=== PATIENT | female | born 1995 | race Caucasian/White ===

== ENCOUNTER 2019-06-20 21:06 | Emergency (ER) | payer OTHER ==
[~2019-06-20] VITALS: Ht 167.6 cm; Wt 77.3 kg
[2019-06-20] MEDS ORDERED: SERT50TA29 PO (21:12)
[2019-06-20] MEDS ORDERED: GNP28TAB2 PO (21:12)
[2019-06-20 21:49] LABS: BASO % 0.5 % (0.0-1.0); EOS # 0.2 10^3/uL (0.0-0.5); EOS % 2.2 % (0.0-3.0); HEMOGLOBIN 12.3 g/dl (12.0-15.5); LYMPH # 2.1 10^3/uL (1.5-5.0); LYMPH % 26.8 % (24.0-44.0); MEAN CORPUSCULAR HEMOGLOBIN 33.2 pg (27.0-33.0); MEAN CORPUSCULAR HGB CONC 34.2 g/dl (32.0-36.5); MEAN CORPUSCULAR VOLUME 97.3 fl (80.0-96.0); MONO # 0.4 10^3/uL (0.0-0.8); MONO % 5.7 % (0.0-5.0); NEUTROPHILS % 64.5 % (36.0-66.0); PLATELET COUNT, AUTOMATED 196 10^3/uL (150-450); WHITE BLOOD COUNT 7.8 10^3/uL (4.0-10.0)
[2019-06-20 22:13] LABS: HCG, SERUM QUALITATIVE POSITIVE (NEGATIVE)
[2019-06-20] MEDS ORDERED: METOCLOPRAMIDE INJ 10MG/2ML VIAL (J2765) IV ONE (22:15)
[2019-06-20] MEDS ORDERED: MORPHINE 2 MG/ML 1ML VIAL (J2270) IV ONE (22:15)
[2019-06-20] MEDS ORDERED: NS 1,000 ML IV ONE (22:15)
[2019-06-20 23:00] LABS: ALBUMIN 3.6 GM/DL (3.2-5.2); ALT/SGPT 25 U/L (12-78); BILIRUBIN,DIRECT 0.1 MG/DL (0.0-0.2); BILIRUBIN,TOTAL 0.5 MG/DL (0.2-1.0); BLOOD UREA NITROGEN 14 MG/DL (7-18); CALCIUM LEVEL 9.1 MG/DL (8.5-10.1); CARBON DIOXIDE LEVEL 26 MEQ/L (21-32); CHLORIDE LEVEL 108 MEQ/L (98-107); CREATININE FOR GFR 0.78 MG/DL (0.55-1.30); GLOMERULAR FILTRATION RATE > 60.0 (>60); GLUCOSE, FASTING 87 MG/DL (70-100); HCG, SERUM QUANTITATIVE 16754 MIU/ML; LIPASE 203 U/L (73-393); POTASSIUM SERUM 3.9 MEQ/L (3.5-5.1); SODIUM LEVEL 142 MEQ/L (136-145); TOTAL PROTEIN 6.4 GM/DL (6.4-8.2)
--- NOTE | 2019-06-20 23:27 | REPVR ---
PROCEDURE INFORMATION: Exam: US Retroperitoneal Complete, Kidneys and Bladder. Exam date and time: 06/20/2019 10:32 PM Clinical history: 24 years old, female; Abdominal pain; Flank; Left; ; Prior Surgery; Surgery Date: 6+ months; Surgery Type: patient had RT nephrectomy as child; Additional Info: left flank pain/pelvic pain; 6 weeks /hx of pyelo TECHNIQUE: Imaging protocol: Real-time ultrasound of the retroperitoneum with image documentation. Complete exam focused on the kidneys and bladder. COMPARISON: No relevant prior studies available. FINDINGS: Limitations: Somewhat limited evaluation because of body habitus. Right kidney: Right kidney is not seen. Left kidney: Left kidney measures 14.0 cm in length. No left hydronephrosis. No masses. Bladder: Bladder is unremarkable. Bladder is partially decompressed. IMPRESSION: 1. Solitary left kidney with compensatory hypertrophy. 2. No left hydronephrosis. 3. Status post right nephrectomy. Electronically signed by: Mike Smallwood On 06/20/2019 23:27:08 PM
--- NOTE | 2019-06-20 23:29 | REPVR ---
PROCEDURE INFORMATION: Exam: US First Trimester, Transabdominal Exam date and time: 06/20/2019 10:32 PM Clinical history: 24 years old, female; complicated by abdominal or pelvic pain; Lower; First trimester; Gestational age or LMP: 5w 6d; ; Additional Info: left flank pain/pelvic pain; 6 weeks /hx of pyelo TECHNIQUE: Imaging protocol: Real-time transabdominal obstetrical ultrasound of the maternal pelvis and a first trimester , less than 14 weeks 0 days, with image documentation. COMPARISON: US Abdomen 06/20/2019 10:23 PM FINDINGS: GESTATION: Gestation: Single live intrauterine gestation. Heart rate: heart rate measures 113 beats per minute. Placenta: Unremarkable. No subchorionic bleed. Amniotic fluid: Amniotic and chorionic fluid are normal for gestational age. BIOMETRY: Estimated gestational age: Estimated gestational age 5 weeks 6 days by crown-rump length. [place]-Rump length: [place]-rump length measures 2.5 mm. MATERNAL: Uterus: Uterus measures 5.5 x 8.8 x 6.4 cm. No masses. Cervix: Unremarkable. Right adnexa: Right ovary is obscured by overlying bowel gas. Left adnexa: Left ovary is obscured by overlying bowel gas. Intraperitoneal: No free fluid. IMPRESSION: 1. Single live intrauterine gestation. 2. Estimated gestational age 5 weeks 6 days. 3. Recommend followup full anatomical survey at 19-20 weeks gestational age. Electronically signed by: Mike Smallwood On 06/20/2019 23:29:13 PM
[2019-06-20] MEDS ORDERED: REGL10TA6 PO (23:48)
[2019-06-20] MEDS ORDERED: KEFL500C17 PO (23:48)
[2019-06-21] MEDS ORDERED: CEPHALEXIN 500 MG CAP PO ONE
[2019-06-21 00:08] VITALS: BP 100/58
--- NOTE | 2019-06-21 21:25 | ECGEPIP ---
[facility] - ED Test Date: 2019-06-20 Pat Name: PAPITO DE PAZ Department: Room: - Gender: Female [employer] Person: KENNEDI : 1995 Requested By: PREET VYAS Order Number: [id number] Reading MD: Kate Arnold Measurements Intervals [place] Rate: 69 P: 62 CA: 140 QRS: 87 QRSD: 84 T: 64 QT: 352 QTc: 380 Interpretive Statements SINUS RHYTHM WITH SINUS ARRHYTHMIA NO PRIOR Electronically Signed on 06-21-2019 21:24:53 EDT by Kate Arnold
== END 2019-06-21 00:14 | disposition home or self-care (01) ==
LOC: M ED 21:06
DX: O23.41 Unspecified infection of urinary tract in pregnancy, first trimester (principal); Z3A.01 Less than 8 weeks gestation of pregnancy; Z88.8 Allergy status to other drugs, medicaments and biological substances; Z88.5 Allergy status to narcotic agent; Z79.899 Other long term (current) drug therapy
CPT/HCPCS: 36415; 76775; 76801; 80053; 81001; 82248; 83690; 84702; 84703; 85025; 93005; 96361; 96374; 96375; 99284; J2270; J2765

== ENCOUNTER 2020-01-06 16:38 | Outpatient (CLI) | payer OTHER ==
[~2020-01-06] VITALS: Ht 167.6 cm; Wt 99.5 kg
[~2020-01-06 16:38] MED LIST: GNP28TAB2 PO; KEFL500C17 PO; REGL10TA6 PO; SERT50TA29 PO
[2020-01-06] MEDS ORDERED: MAPA500T2 PO (16:50)
[2020-01-06] MEDS ORDERED: sertraline PO (16:50)
[2020-01-06 17:06] VITALS: BP 134/60
--- NOTE | 2020-01-07 00:20 | HPE ---
DATE OF ADMISSION: 01/06/2020 A 24-year-old 2, para 1, last menstrual period (LMP) 05/06/2019, estimated date of confinement (EDC) 02/10/2020 at 35 weeks of gestation with a history of query contractions. No vaginal bleeding and no vaginal loss. Risk factors: She has had a previous section, a right nephrectomy, cardiac murmur, migraines, asthma, depression, recurrent urinary tract infection (UTIs) and anemia. Past History: In 2014, a section, 8 pounds and 2 ounces, under general was a stat section for nonreassuring heart tones and abruption. Labs are O positive, HIV negative, hepatitis negative, RPR negative, rubella immune. Varicella immune. Urine negative. Gonorrhea and chlamydia are negative. One-hour glucose was 123. Blood pressure 134/60, respirations 18, pulse 67, temperature is 98.2. Urine is 1.015, pH is 5, plus for blood and plus for protein. EXAMINATION: No acute distress. Symphysis fundus height is 35, vertex presenting, soft uterus. Four quadrant bowel sounds are noted. Category one strip lemon activity with moderate variability and accelerations were noted, baseline was noted normal. Cervix was closed, posterior, thick and high. No vaginal bleeding or discharge. GBS culture was done. The patient was counseled, discharged undelivered. Follow up her routine appointment. Urine for culture and sensitivity (C and S) was done, and we anticipate a result in 48 hours. The patient is to increase her fluids and discharged undelivered.
== END 2020-01-06 17:41 | disposition home or self-care (01) ==
LOC: M LDO 16:38
PROVIDERS: ATTEND Obstetrics & Gynecology
DX: O62.0 Primary inadequate contractions (principal); Z3A.35 35 weeks gestation of pregnancy
CPT/HCPCS: 59025; 87070; 87086; G0378; G0463

== ENCOUNTER 2020-02-01 03:01 | Inpatient (IN) | payer OTHER ==
[~2020-02-01] VITALS: Ht 167.6 cm; Wt 102.6 kg
[2020-02-01] VITALS (20 sets, daily range): BP systolic 101–136; BP diastolic 56–84
[~2020-02-01 03:01] MED LIST changes: +MAPA500T2 PO; +sertraline PO
[2020-02-01] MEDS ORDERED: PEPC1TAB5 PO (03:24)
[2020-02-01] MEDS ORDERED: LACTATED RINGER'S 1000 ML IV STA (03:49)
[2020-02-01] MEDS ORDERED: LR 1,000 ML IV SCH (03:49)
[2020-02-01] MEDS ORDERED: SIMETHICONE 80 MG CHEW TAB PO PRN (04:00)
[2020-02-01] MEDS ORDERED: MOM 30ML SUSPENSION UDC PO PRN ×2 (04:00→19:00)
[2020-02-01] MEDS ORDERED: CALCIUM CARBONATE 500 MG CHEW U/D PO PRN (04:00)
[2020-02-01] MEDS ORDERED: ACETAMINOPHEN 500 MG TAB PO PRN ×2 (04:00→19:00)
[2020-02-01] MEDS ORDERED: BUTORPHANOL 2 MG/ML INJ (J0595) IV PRN (04:00)
[2020-02-01] MEDS ORDERED: PROMETHAZINE INJ 25 MG/ML VIAL (J2550) IV PRN (04:00)
[2020-02-01] MEDS ORDERED: diphenhydrAMINE 25MG CAP PO PRN (04:00)
--- NOTE | 2020-02-01 04:11 | HPEPDOC ---
Obstetrical History & Physical General Date of Admission Feb 01, 2020 at 03:53 History of Present Illness Patient is a 25yo at 38.5wks by LMP c/w 9wk US. Ctx since 0100. No LOF, VB, headache, or visual changes. Good movement. 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 Past Medical History Medical History asthma, migraines Surgical History: Appendectomy, section, Tonsilectomy, Other (Rt nephrectomy) Family History Significant Family History: No pertinent family hx Social History Marital Status: Family situation: Spouse/partner home Psychosocial History: Depression * Smoker: non-smoker Alcohol: Denies Drugs: denies Abuse Violence Screening Have you been hit/kicked/slapp: No Have you been sexually assault: No Imunizations Tdap status: current Influenza Status: current Allergies Coded Allergies: acetaminophen (Verified Allergy, Intermediate, hives, 06/20/19) hydrocodone (Verified Allergy, Intermediate, hives, 06/20/19) prochlorperazine (Verified Allergy, Intermediate, panic attack, 06/20/19) Medications Scheduled Famotidine (Pepcid) 20 Mg Tablet, 20 MG PO DAILY Pnv No.95/Ferrous Fum/Folic AC ( Vitamins Tablet) 1 Each Tablet, 1 TAB PO DAILY [sertraline] , 75 MG PO DAILY Miscellaneous Medications Acetaminophen (Mapap) 500 Mg Tablet, 1,000 MG PO Physical Examination Physical Examination GENERAL: Alert and oriented times three. BREAST: . ABDOMEN: Gravid and non-tender to touch. FETUS: Is vertex (VTX) by sterile vaginal examination (SVE), fetus is 4000gm by Jose Juan. HEART RATE: Regular rate and rhythm. LUNGS: Clear to auscultation (CTA). EXTREMITIES: No edema. Vital Signs/I&O Vital Signs Date Time Temp Pulse Resp B/P (MAP) Pulse Ox O2 Delivery O2 Flow Rate FiO2 02/01/20 03:16 98.4 129 18 119/72 (88) Laboratory Data Urine Culture: Escherichia (E.) Coli Pertinent Laboratoy Data HIV: Negative Hepatitis B: Negative Rapid Plasma Reagin: Nonreactive Rubella: Immune Varicella: Immune Chlamydia/Gonorrhea: Negative Group B Streptococcus: Negative Cystic Fibrosis: Negative Glucose Tolerance Test: 125 Anatomy Ultrasound Ultrasound Date: Sep 23, 2019 Placenta Location: Anterior Normal Anatomy: Yes Placenta Previa: No Estimated Weight (grams): 294 Steroid Therapy Steroid Therapy: No Vaginal Examination Dilation: 4 cm Effacement: 50% Station: -3 Cervical Consistency: Medium Cervical Position: Posterior Presentation: Cephalic presentation Assessment Heart Rate (FHR): 140 Variability: Moderate Accelerations: Positive Decelerations: None Tocometer Contractions: Yes Frequency: every 1-5 min. Multi-drug resistant Organism: No history of MDRO Assessment/Plan Assessment Patient is a 25yo at 38.5wks by LMP c/w 9wk US. Admit for labor and expect delivery by . Pain management per patient preference, which was discussed with her. I discussed risks of with patient of failure with section, distress, bleeding, infection, , vaginal or perineal or neighboring organ tear. Currently, fetus is reassuring. GBS is negative, no need for antibiotics. Plan Admit and orient. 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 Diet: NPO. Group B Streptococcus (GBS) negative. Labs and intravenous (IV) per unit protocol. Counseled on TOLAC. Lactated Ringers (LR): Bolus 500 mL, then at 125 mL/hr. Anticipate normal spontaneous delivery (). C-S as appropriate. Pain mgt per patient desire. Patient was consented for a TOLAC. She understands both options of TOLAC vs cesarian delivery. delivery includes risks of infection, bleeding needing a transfusion (with blood reaction or transmission of disease), damage to other organs including baby, need for future deliveries, longer recovery and hospitalization, future scarring, more recovery pain, possible limit to childbearing, pelvic and/or uterine disorders or pain permanently. Benefits include faster delivery, or . TOLAC includes risks of bleeding needing a transfusion (with blood reaction or transmission of disease), uterine or infection, perineal or vaginal lacerations, assisted delivery, distress or injury, emergency section, uterine rupture, of fetus and/or mother. Benefits include avoiding abdominal surgery and faster recovery. All questions were answered by the patient. She desires TOLAC. Arlene Mcnamara MD Feb 01, 2020 04:06
[2020-02-01 04:32] LABS: BASO % 0.3 % (0.0-1.0); EOS # 0.1 10^3/uL (0.0-0.5); EOS % 0.6 % (0.0-3.0); HEMATOCRIT 35.1 % (36.0-47.0); HEMOGLOBIN 11.3 g/dl (12.0-15.5); LYMPH # 1.7 10^3/uL (1.5-5.0); LYMPH % 12.6 % (24.0-44.0); MEAN CORPUSCULAR HEMOGLOBIN 32.8 pg (27.0-33.0); MEAN CORPUSCULAR HGB CONC 32.2 g/dl (32.0-36.5); MONO # 0.9 10^3/uL (0.0-0.8); MONO % 6.5 % (0.0-5.0); NEUTROPHILS # 10.3 10^3/uL (1.5-8.5); NEUTROPHILS % 79.3 % (36.0-66.0); PLATELET COUNT, AUTOMATED 221 10^3/uL (150-450); RED BLOOD COUNT 3.44 10^6/uL (4.00-5.40); WHITE BLOOD COUNT 13.1 10^3/uL (4.0-10.0)
--- NOTE | 2020-02-01 10:12 | REP ---
Clinical: Vaginal discharge. Possible ruptured membrane. Comparison: None . Findings: Examination demonstrates a single live intrauterine in cephalic presentation. motion is identified by technologist. Placenta is noted anterior and grade I without evidence for placenta previa or abruption. Amniotic fluid volume is low normal. Cervix cannot be measured due to advanced age. Nuchal cord cannot be excluded. Gestational age by LMP 38 weeks 5 days with IRVIN 02/10/2020 . Gestational age by first US 38 weeks 1 day with IRVIN 02/14/2020 . FHR equals 141 beats per minute. Biophysical profile score: 4/8 (breathing -0; tone -0; movement -2; AFV -2) Amniotic fluid index: 8.3 cm (7.2 - 23.0) Umbilical cord SD ratio: 1.83 (1.60 - 2.60) Impression: Advanced gestation in cephalic presentation. Biophysical profile score: 4/8 Amniotic fluid volume is lower limits of normal. Nuchal cord cannot be excluded. Electronically Signed by Sukh Chaidez MD 02/01/2020 10:05 A
--- NOTE | 2020-02-01 11:46 | IPN ---
DATE: 02/01/2020 This lady is a 25-year-old, 2, para 1. She is at 38 and 6 weeks of gestation today. Was admitted with contractions. Her past history is that she had a section for nonreassuring heart tones complicated by a hemorrhage. Her other surgical history she has had an appendectomy, section, a right nephrectomy. She was reviewed overnight and she was having contractions about 11 minutes apart. She had a category 1 strip with the occasional time where she had a category II strip but with hydration appeared to be back to category 1 strip. The contractions were very spaced apart. Initial examination by previous provider said she was 4 cm, 50% effaced and minus 3. Review this morning she is maybe 3 cm, posterior and minus 3, is vertex presenting and generous 50% effacement. Presently has a category 1 strip and was not really in active labor. Although, she expressed the wish to have a trial of labor after (TOLAC). Therefore, prior to assessment of discharge a BPP was performed and the BPP was 4/8. Baby was at 38 and 6 weeks of gestation, got zero for breathing, zero for tone, 2 for movement, and 2 for the amniotic fluid which was at 8.[address] ratio was normal at 1.83, and question of nuchal cord could not be excluded. With a biophysical of 4/8, we felt that this lady should not go home because there may be an issue with intrauterine environment and the fact she is a TOLAC and wished to optimize her for vaginal delivery. We elected to go ahead and do a contraction stress test in order establish whether or not the placenta will tolerate labor as will the fetus, and if so we would continue on with Pitocin expressing to the patient that because of intervention she is at higher risk for rupture of the uterus. She expressed understanding of the risks and benefits. We are waiting for her to come before trying the contraction stress test. She is nothing by mouth. Blood pressure is 113/77, respirations 16, pulse 91, temperature is 98.2. Presently, a category 1 strip and we will define the progress after the contraction stress test. We spent 30 minutes with review of the ultrasound and plan of care. Safe to proceed at the present time.
[2020-02-01] MEDS ORDERED: OXYTOCIN DRIP 30 UNITS in IV 1 EA IV SCH (12:00)
--- NOTE | 2020-02-01 12:04 | IPN ---
DATE: 02/01/2020 at 10:53 a.m. After discussing with this patient our plan of care she had some of auxiliary questions regarding Pitocin. She was told by a previous provider that under no circumstances would she use Pitocin on the patient because of the increased risk of rupture of the uterus. After discussing the physiology of contractions in which Pitocin is naturally produced by her own body and we are doing a controlled trial with a contraction stress test to see if this placenta and baby will tolerate labor is a different issue than using Pitocin for induction of labor. We did reiterate that there still an increase risk of rupture the uterus because of our intervention. However, without establishing whether in fact she needs to have a section because of a positive PET HANDLER where it would indicate uteroplacental insufficiency, then we can continue safely monitoring her for labor. The patient expressed understanding of the issue and we still await her 's coming to participate in the labor process.
[2020-02-01 18:41] LABS: CORD GAS ABE A -10.3; CORD GAS HCO3 A 19.8 MEQ/L; CORD GAS O2 SAT A 48.2 %; CORD GAS PCO2 A 61.2 mmHg; CORD GAS PH A 7.128 UNITS; CORD GAS PO2 A 26.6 mmHg; CORD GAS SBC A 15.4 MEQ/L; CORD GAS TCO2 A 21.7 MEQ/L
[2020-02-01 18:42] LABS: CORD GAS ABE V -10.4; CORD GAS HCO3 V 15.9 MEQ/L; CORD GAS O2 SAT V 79.7 %; CORD GAS PH V 7.251 UNITS; CORD GAS PO2 V 37.7 mmHg
[2020-02-01] MEDS ORDERED: DIBUCAINE 1% OINTMENT 30GM TOP PRN (19:00)
[2020-02-01] MEDS ORDERED: IBUPROFEN 600 MG TAB PO PRN (19:00)
[2020-02-01] MEDS ORDERED: RHOGAM 300 MCG (1500 IU) INJ (J2790) IM SCH (19:00)
[2020-02-01] MEDS ORDERED: OXYTOCIN INJ 10 UNITS/ML VIAL (J2590) IV ONE (19:00)
[2020-02-01] MEDS ORDERED: ANUSOL HC CREAM 30GM TOP PRN (19:00)
[2020-02-01] MEDS ORDERED: OXYTOCIN DRIP 30 UNITS in IV 1 EA IV ONE (19:00)
[2020-02-01] MEDS ORDERED: MEASLES,MUMPS,RUBELLA VACCINE INJ (MMR-II) (90707) SC SCH (19:00)
[2020-02-01] MEDS ORDERED: LIDOCAINE 1% MDV 20ML VIAL INFIL ONE (19:00)
[2020-02-01] MEDS ORDERED: ACETAMINOPHEN TAB 650MG DOSE (2X325MG) PO PRN (19:00)
[2020-02-01] MEDS ORDERED: DOCUSATE SODIUM 100 MG CAP PO PRN (19:00)
[2020-02-01] MEDS ORDERED: METHYLERGONOVINE MALEATE 0.2 MG TAB PO PRN (19:00)
[2020-02-01] MEDS ORDERED: LIDOCAINE 1% MDV 20ML VIAL As Ordered ONE (19:15)
[2020-02-01] MEDS ORDERED: OXYTOCIN INJ 10 UNITS/ML VIAL (J2590) As Ordered ONE (19:15)
[2020-02-01] MEDS: IBUPROFEN 800 MG TAB PO PRN (21:01)
[2020-02-02 05:44] VITALS: BP 116/68
[2020-02-02 08:00] LABS: HEMATOCRIT 33.3 % (36.0-47.0); HEMOGLOBIN 10.7 g/dl (12.0-15.5); MEAN CORPUSCULAR HGB CONC 32.1 g/dl (32.0-36.5); MEAN CORPUSCULAR VOLUME 102.8 fl (80.0-96.0); PLATELET COUNT, AUTOMATED 191 10^3/uL (150-450); RED BLOOD COUNT 3.24 10^6/uL (4.00-5.40); WHITE BLOOD COUNT 14.7 10^3/uL (4.0-10.0)
--- NOTE | 2020-02-02 08:02 | IPN ---
DATE: 02/02/2020 This lady is a 25-year-old 2, now para 2, admitted with spontaneous labor at 38+ weeks of gestation desiring a trial of labor after (TOLAC). She delivered a live female 7 pounds 7 ounces, 3370 grams, of 8 and 9, at one and five minutes respectively. Cord times one around the neck and cord times one around the body tight. Arterial pH 7.12, base excess -10.3, venous pH 7.25, base excess -10.4. She has some local anesthetic for a left labial varicosity repair. 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 She was then admitted with prodromal labor. She was delivered successfully, a TOLAC. On her first day, blood pressure is 116/68, respirations 18, pulse 84, temperature 98.0. Her admitting hemoglobin was 11.3, hematocrit 35.1 and platelets were 221. We discussed phlebitis, cystitis, mastitis, endometritis and cellulitis, diet, exercise pain management, perineal breast and wound care. On examination, she is normocephalic, atraumatic. Neck: Full range of motion. Pupils equally reactive to light. Distal pulses symmetric. No evidence of deep venous thrombosis (DVT), pulmonary embolus (PE) or superficial phlebitis. Chest is clear bilaterally bases. No wheezes or rhonchi. No costovertebral angle (CVA) tenderness. Abdomen: Soft. Uterus 2 below. Lochia is moderate. Four-quadrant bowel sounds are noted. Perineum is healing. She has no rashes, lesions or pruritus. No arthralgia or myalgia complaint joint pain. No complaint cough, wheeze, shortness breath or dyspnea on exertion. Breast-feeding is going well. She is planned on discharge for tomorrow. 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 The patient is anxious for discharge tomorrow.
[2020-02-02] MEDS: PRENATAL VITAMINS CHEWABLE TABLET PO SCH (08:33)
[2020-02-02] MEDS: SERTRALINE HCL 25 MG TABLET PO SCH (08:33)
[2020-02-02] MEDS: IBUPROFEN 800 MG TAB PO PRN ×2 (08:33→20:38)
[2020-02-02 18:00] VITALS: BP 118/75
[2020-02-03 05:35] VITALS: BP 120/74
[2020-02-03] MEDS ORDERED: DIBU10OI TOP (07:01)
[2020-02-03] MEDS ORDERED: DOCU100C16 PO (07:01)
[2020-02-03] MEDS ORDERED: IBUP80TA PO (07:01)
[2020-02-03] MEDS ORDERED: SERT25TA21 PO (07:01)
[2020-02-03] MEDS: SERTRALINE HCL 25 MG TABLET PO SCH (08:38)
[2020-02-03] MEDS: PRENATAL VITAMINS CHEWABLE TABLET PO SCH (08:40)
[2020-02-03] MEDS: IBUPROFEN 800 MG TAB PO PRN (08:40)
--- NOTE | 2020-02-05 16:41 | DN ---
DATE OF DELIVERY: 02/01/2020 DELIVERY NOTE: This lady is a 25-year-old, 2, para 1, was admitted in spontaneous prodromal labor. She was evaluated and was having contractions maybe 11 minutes apart. She did have a category 1 strip but there was occasional areas where she had minimal variability and a category 2 strip. Her cervix was posterior, maybe 2 cm, -3 station. Because she had a previous section for nonreassuring heart tones she elected to have a trial of labor after (TOLAC) . However, we elected to do a biophysical profile prior to either continuing on or letting her go home and the biophysical profile was 4/8 with no breathing and no tone. Therefore, we did a contraction stress test which was negative and proceeded on with Pitocin maximum of 4 milliunits in total. She did have a spontaneous rupture of membranes and she rapidly progressed to full dilatation, delivered over an intact perineum a live female , 7 pounds 7 ounces (3370 grams) score 8 and 9 at and five minutes, respectively. Cord was around the neck once tight and was around the body times one tight. Arterial pH 7.12, base excess -10.3, venous pH 7.25, base excess -10.4. Placenta delivered spontaneously thereafter. Three-vessel cord membranes and tissues intact. The left lateral vaginal varicosity was oversewn in the usual fashion with #2-0 [id number]. The uterus contracted well down under Pitocin. The anterior, posterior, and lateral graham were intact. Sphincter was tight. The patient and baby tolerating procedure well.
--- NOTE | 2020-02-06 14:19 | DSES ---
DATE OF ADMISSION: 02/01/2020 DATE OF DISCHARGE: 02/03/2020 This lady is a 25-year-old, 2, now para 2 who came in with spontaneous labor at 38+ weeks of gestation. She was a trial of labor after (TOLAC) candidate. She had a spontaneous vaginal delivery of a female, 7 pounds 7 ounces, 3370 grams, Apgars of 8 and 9 at one and five minutes respectfully. Cord was around the neck x1 and the body x1. Arterial pH 7.12, base excess -10.3; venous pH 7.25, base excess -10.4. She has some local anesthetic for a left labial varicosity repair. She initially had a negative contraction stress test followed by a BPP of 4 out of 8, which initiated augmentation of labor. On her second day, we discussed phlebitis, cystitis, mastitis, endometritis and cellulitis; diet, exercise and pain management; perineal, breast and wound care. Admitting hemoglobin 11.3, hematocrit 35.1 and platelets were 221. Discharge hemoglobin 10.7, hematocrit 33.3 and platelets were 199. Vital signs on discharge, blood pressure was 120/74, respirations 17, pulse 73 and temperature 98.1. The rest of the examination unremarkable. Normocephalic, atraumatic. Neck full range of motion. Pupils equal and react to light. Distal pulses symmetric. No evidence of deep vein thrombosis (DVT), pulmonary embolism (PE) or superficial phlebitis. Chest is clear bilaterally at bases. No wheezes or rhonchi. No CVA tenderness. Abdomen soft, uterus two below. Lochia is moderate. Four quadrant bowel sounds are noted. Perineum is healing. No rashes, lesions or pruritus. No arthralgia or myalgia. No complaint of joint pain. No complaint of cough, wheeze, shortness of breath or dyspnea on exertion. No nausea, vomiting, diarrhea or constipation. Presently, she is voiding well, passing gas. Breast feeding is going well. 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 She will have a 6-week checkup at [facility]. Discharged delivered and stable.
== END 2020-02-03 12:30 | disposition home or self-care (01) | DRG 807 ==
LOC: M LDO 03:01 → M LDI 03:53 → M OBS 21:35
PROVIDERS: ADMIT Obstetrics & Gynecology; ATTEND Obstetrics & Gynecology
PROC: 10E0XZZ Delivery of Products of Conception, External Approach (ICD-10-PCS; principal; 2020-02-01)
PROC: 0HQ9XZZ Repair Perineum Skin, External Approach (ICD-10-PCS; 2020-02-01)
DX: O34.211 Maternal care for low transverse scar from previous cesarean delivery (principal); Z37.0 Single live birth; Z3A.38 38 weeks gestation of pregnancy; O69.1XX0 Labor and delivery complicated by cord around neck, with compression, not applicable or unspecified; O70.0 First degree perineal laceration during delivery

== ENCOUNTER → 2020-04-06 | Outpatient (REF) | payer OTHER ==
[~2020-04-06] MED LIST changes: +CYCL5TAB PO; +DIBU10OI TOP; +DOCU100C16 PO; +IBUP80TA PO; +PEPC1TAB5 PO; +SERT25TA21 PO
== END ==
LOC: M LAB REF 16:16
PROVIDERS: ATTEND Physician Assistant
DX: J02.9 Acute pharyngitis, unspecified (principal)

== ENCOUNTER 2020-06-22 19:18 | Emergency (ER) | payer OTHER ==
[~2020-06-22] VITALS: Ht 167.6 cm; Wt 92.5 kg
[~2020-06-22 19:18] MED LIST changes: -CYCL5TAB PO
[2020-06-22 19:19] VITALS: BP 120/78
[2020-06-22] MEDS ORDERED: IBUPROFEN 800 MG TAB PO ONE (20:00)
--- NOTE | 2020-06-22 20:37 | REPVR ---
PROCEDURE INFORMATION: Exam: XR Right Shoulder Exam date and time: 06/22/2020 8:12 PM Age: 25 years old Clinical indication: Pain; Shoulder; Bilateral; Additional info: [place] TECHNIQUE: Imaging protocol: XR Right shoulder. Views: 2 or more views. COMPARISON: No relevant prior studies available. FINDINGS: Bones/joints: Normal. Soft tissues: Normal. IMPRESSION: No acute findings. PROCEDURE INFORMATION: Exam: XR Left Shoulder Exam date and time: 06/22/2020 8:12 PM Age: 25 years old Clinical indication: Pain; Shoulder; Bilateral; Additional info: [place] TECHNIQUE: Imaging protocol: XR Left shoulder. Views: 2 or more views. COMPARISON: No relevant prior studies available. FINDINGS: Bones/joints: Normal. Soft tissues: Normal. IMPRESSION: No acute findings. Electronically signed by: Roly Grimaldo On 06/22/2020 20:37:40 PM
--- NOTE | 2020-06-22 20:41 | REPVR ---
PROCEDURE INFORMATION: Exam: XR Right Elbow Exam date and time: 06/22/2020 8:12 PM Age: 25 years old Clinical indication: Pain; Elbow; Right; Additional info: [place] TECHNIQUE: Imaging protocol: XR Right elbow. Views: 3 or more views. COMPARISON: No relevant prior studies available. FINDINGS: Bones/joints: Normal. Soft tissues: Amorphous density adjacent to the medial epicondyle may be the sequelae of medial epicondylitis. IMPRESSION: Amorphous density adjacent to the medial epicondyle may be the sequelae of medial epicondylitis. Electronically signed by: Roly Grimaldo On 06/22/2020 20:41:31 PM
--- NOTE | 2020-06-22 20:44 | REPVR ---
PROCEDURE INFORMATION: Exam: XR Right Hip with Pelvis when Performed Exam date and time: 06/22/2020 8:12 PM Age: 25 years old Clinical indication: Hip pain; Right hip; Additional info: [place]ell TECHNIQUE: Imaging protocol: XR Right hip with pelvis when performed. Views: 2 or 3 views. COMPARISON: No relevant prior studies available. FINDINGS: Bones/joints: Unremarkable. No acute fracture. Soft tissues: Unremarkable. IMPRESSION: No acute findings. Electronically signed by: Roly Grimaldo On 06/22/2020 20:44:16 PM
[2020-06-22] MEDS ORDERED: OXYCODONE/APAP 5MG/325MG(BULK FOR ED) 1 TABLET PO ONE (21:00)
[2020-06-22] MEDS ORDERED: PERCOCET 5MG/325MG TAB PO ONE (21:00)
[2020-06-22] MEDS ORDERED: CYCL5TAB PO (21:03)
--- NOTE | 2020-06-23 15:22 | ED PDOC ---
Post-Departure Follow-Up ft [facility] faxed formal report of right elbow film for fu Bebeto Hernandez MD Jun 23, 2020 15:22
== END 2020-06-22 21:39 | disposition home or self-care (01) ==
LOC: M ED 19:18
DX: S43.402A Unspecified sprain of left shoulder joint, initial encounter (principal); S73.101A Unspecified sprain of right hip, initial encounter; M25.521 Pain in right elbow; W10.8XXA Fall (on) (from) other stairs and steps, initial encounter; Y92.009 Unspecified place in unspecified non-institutional (private) residence as the place of occurrence of the external cause; Z88.5 Allergy status to narcotic agent; Z88.8 Allergy status to other drugs, medicaments and biological substances

== ENCOUNTER → 2020-07-30 | Outpatient (CLI) | payer SELFPAY ==
[~2020-07-30] MED LIST changes: +CYCL5TAB PO
== END ==
LOC: M LABSMTC 12:49
PROVIDERS: ATTEND Pediatrics
DX: Z20.828 Contact with and (suspected) exposure to other viral communicable diseases (principal)

== ENCOUNTER 2020-12-08 23:38 | Emergency (ER) | payer OTHER, SELFPAY ==
[~2020-12-08] VITALS: Ht 167.6 cm; Wt 90.0 kg
[~2020-12-08 23:38] MED LIST changes: -DIBU10OI TOP; +DIBU28OI2 TOP
[2020-12-08] MEDS ORDERED: SERT-141 PO (23:46)
[2020-12-09 00:51] LABS: HEMATOCRIT 40.7 % (36.0-47.0); HEMOGLOBIN 13.1 g/dl (12.0-15.5); MEAN CORPUSCULAR HEMOGLOBIN 30.8 pg (27.0-33.0); MEAN CORPUSCULAR HGB CONC 32.2 g/dl (32.0-36.5); MEAN CORPUSCULAR VOLUME 95.5 fl (80.0-96.0); PLATELET COUNT, AUTOMATED 330 10^3/uL (150-450); RED BLOOD COUNT 4.26 10^6/uL (4.00-5.40); WHITE BLOOD COUNT 8.5 10^3/uL (4.0-10.0)
[2020-12-09] MEDS ORDERED: NS 1,000 ML IV ONE (01:10)
[2020-12-09] MEDS ORDERED: ACETAMINOPHEN *IV* 1,000 MG in IV 1 EA IV ONE (01:10)
[2020-12-09] MEDS ORDERED: ONDANSETRON 4MG/2ML VIAL IV ONE (01:10)
[2020-12-09 01:15] LABS: APPEARANCE, URINE HAZY (CLEAR); BACTERIA, URINE AUTO NEGATIVE (NEGATIVE); BILIRUBIN, URINE AUTO NEGATIVE (NEGATIVE); BLOOD, URINE BLOOD 1+ (NEGATIVE); COLOR, URINE YELLOW (YELLOW); GLUCOSE, URINE (UA) AUTO NEGATIVE (NEGATIVE); KETONE, URINE AUTO NEGATIVE (NEGATIVE); LEUKOCYTE ESTERASE, URINE AUTO NEGATIVE (NEGATIVE); MUCUS, URINE SMALL (NEGATIVE); NITRITE, URINE AUTO NEGATIVE (NEGATIVE); PROTEIN, URINE AUTO 2+ mg/dL (NEGATIVE); RBC, URINE AUTO 2 /HPF (0-3); SPECIFIC GRAVITY URINE AUTO 1.015 (1.002-1.035); SQUAMOUS EPITHELIAL CELL UR AU 3 /HPF (0-6); WBC, URINE AUTO 1 /HPF (0-3)
[2020-12-09 01:32] LABS: BLOOD UREA NITROGEN 7 MG/DL (7-18); CARBON DIOXIDE LEVEL 26 MEQ/L (21-32); CHLORIDE LEVEL 109 MEQ/L (98-107); CREATININE FOR GFR 0.98 MG/DL (0.55-1.30); GLOMERULAR FILTRATION RATE > 60.0 (>60); GLUCOSE, FASTING 93 MG/DL (70-100); POTASSIUM SERUM 3.8 MEQ/L (3.5-5.1); SODIUM LEVEL 141 MEQ/L (136-145)
[2020-12-09 01:33] LABS: CALCIUM LEVEL 10.1 MG/DL (8.5-10.1); HCG, SERUM QUANTITATIVE 1862 MIU/ML
[2020-12-09] MEDS ORDERED: GI COCKTAIL 50ML BTL(HYOSCYAMINE/MAALOX/LIDOCAINE VISCOUS)(1:3:1) PO ONE (02:15)
[2020-12-09] MEDS ORDERED: FAMOTIDINE IV BAG 20 MG in IV 1 EA IV ONE (02:15)
--- NOTE | 2020-12-09 02:28 | REPVR ---
PROCEDURE INFORMATION: Exam: US Abdomen, Limited; Right Upper Quadrant Exam date and time: 12/09/2020 1:53 AM Age: 25 years old Clinical indication: Abdominal pain; Epigastric; Prior surgery; Surgery date: 6+ months; Surgery type: Right nephrectomy, as a child; Additional info: Ruq, epigastric pain TECHNIQUE: Imaging protocol: US abdomen. Real time ultrasound with image documentation. Limited exam focused on the right upper quadrant. COMPARISON: RENAL US 06/20/2019 10:23 PM FINDINGS: Liver: Unremarkable. Gallbladder: No gallstones. No gallbladder wall thickening or pericholecystic fluid. 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 Common bile duct: No stones. No ductal dilatation. Pancreas: Unremarkable as visualized. Right kidney: Absent. IMPRESSION: No acute sonographic findings. Electronically signed by: Donal Paz On 12/09/2020 02:29:23 AM
[2020-12-09 02:59] LABS: ALBUMIN 4.3 GM/DL (3.2-5.2); ALT/SGPT 44 U/L (12-78); BILIRUBIN,DIRECT 0.2 MG/DL (0.0-0.2); BILIRUBIN,TOTAL 0.7 MG/DL (0.2-1.0); LIPASE 135 U/L (73-393); TOTAL PROTEIN 7.4 GM/DL (6.4-8.2)
[2020-12-09 03:02] VITALS: BP 123/67
== END 2020-12-09 03:13 | disposition home or self-care (01) ==
LOC: M ED 23:38
DX: O99.619 Diseases of the digestive system complicating pregnancy, unspecified trimester (principal); K29.70 Gastritis, unspecified, without bleeding; Z88.6 Allergy status to analgesic agent; Z88.8 Allergy status to other drugs, medicaments and biological substances
CPT/HCPCS: 76705; 80047; 80048; 80076; 81001; 83690; 84702; 85027; 96365; 96375; 99284; J0131; J2405

== ENCOUNTER 2021-01-05 14:28 | Emergency (ER) | payer OTHER ==
[~2021-01-05] VITALS: Ht 167.6 cm; Wt 90.9 kg
[~2021-01-05 14:28] MED LIST changes: +SERT-141 PO
[2021-01-05] MEDS ORDERED: PRENMIS3 PO (14:41)
[2021-01-05] MEDS ORDERED: NS 1,000 ML IV ONE ×2 (15:00→16:30)
[2021-01-05 15:20] LABS: BASO % 0.5 % (0.0-1.0); EOS # 0.1 10^3/uL (0.0-0.5); EOS % 1.3 % (0.0-3.0); HEMATOCRIT 38.1 % (36.0-47.0); HEMOGLOBIN 12.5 g/dl (12.0-15.5); LYMPH # 1.5 10^3/uL (1.5-5.0); LYMPH % 19.8 % (24.0-44.0); MEAN CORPUSCULAR HEMOGLOBIN 31.3 pg (27.0-33.0); MEAN CORPUSCULAR HGB CONC 32.8 g/dl (32.0-36.5); MEAN CORPUSCULAR VOLUME 95.3 fl (80.0-96.0); MONO # 0.5 10^3/uL (0.0-0.8); MONO % 6.5 % (2.0-8.0); NEUTROPHILS # 5.3 10^3/uL (1.5-8.5); NEUTROPHILS % 71.4 % (36.0-66.0); PLATELET COUNT, AUTOMATED 262 10^3/uL (150-450); WHITE BLOOD COUNT 7.4 10^3/uL (4.0-10.0)
[2021-01-05 16:07] LABS: ALBUMIN 3.7 GM/DL (3.2-5.2); ALT/SGPT 17 U/L (12-78); BILIRUBIN,DIRECT 0.2 MG/DL (0.0-0.2); BILIRUBIN,TOTAL 0.8 MG/DL (0.2-1.0); BLOOD UREA NITROGEN 9 MG/DL (7-18); CALCIUM LEVEL 9.6 MG/DL (8.5-10.1); CARBON DIOXIDE LEVEL 25 MEQ/L (21-32); CHLORIDE LEVEL 108 MEQ/L (98-107); CREATININE FOR GFR 0.59 MG/DL (0.55-1.30); GLOMERULAR FILTRATION RATE > 60.0 (>60); GLUCOSE, FASTING 86 MG/DL (70-100); HCG, SERUM QUANTITATIVE 108302 MIU/ML; LIPASE 77 U/L (73-393); POTASSIUM SERUM 3.8 MEQ/L (3.5-5.1); SODIUM LEVEL 138 MEQ/L (136-145); TOTAL PROTEIN 6.7 GM/DL (6.4-8.2)
[2021-01-05] MEDS ORDERED: ACETAMINOPHEN 500 MG TAB PO ONE (16:30)
[2021-01-05] MEDS ORDERED: METOCLOPRAMIDE INJ 10MG/2ML VIAL (J2765 PER 1) IV ONE (16:55)
[2021-01-05 17:24] LABS: CK-MB VALUE MASS < 1.0 NG/ML (<3.6); CPK CREATINE PHOSPHOKINASE 46 U/L (26-192); MB/CK RELATIVE INDEX 2.17 (< OR =4); TROPONIN I < 0.02 NG/ML (< 0.10)
--- NOTE | 2021-01-05 17:39 | REP ---
INDICATION: N/V, 8 WEEKS. COMPARISON: No pertinent priors TECHNIQUE: Transvesical imaging FINDINGS: Within the uterus there is an anechoic structure with increased echoes surrounding it consistent with a decidual reaction. Within the gestational sac there is a tiny anechoic structure consistent with a yolk sac. Also seen in the gestational sac there is echogenic material consistent with a pole the mean crown-rump length measurement of which is consistent with a 9 week 3 day gestational age. Based on that the estimated date of delivery is 08/07/2021. Doppler interrogation of the heart shows a heart rate of 169 beats per minute. Evaluation of the adnexal spaces shows no abnormalities. An incidental urinary bladder diverticulum was suspected. IMPRESSION: Early OB ultrasound as described above. <Electronically signed by Jovan Scales > 01/05/21 [id number]
[2021-01-05 18:30] LABS: AMPHETAMINES LEVEL URINE NEGATIVE (NEGATIVE); BARBITURATES URINE NEGATIVE (NEGATIVE); BENZODIAZEPINES URINE NEGATIVE (NEGATIVE); CANNABINOIDS URINE NEGATIVE (NEGATIVE); COCAINE METABOLITE URINE NEGATIVE (NEGATIVE); METHADONE URINE NEGATIVE (NEGATIVE); OPIATES URINE NEGATIVE (NEGATIVE); PHENCYCLIDINE URINE NEGATIVE (NEGATIVE)
[2021-01-05] MEDS ORDERED: cefTRIAXone SOD 1 GM in D5W MINI-BAG PLUS 50 ML IV ONE (19:05)
[2021-01-05] MEDS ORDERED: MULTIVITAMIN -ADULT INJECTION 10 ML, THIAMINE INJection 100 MG, FOLIC ACID 1 MG in NS 1... IV ONE (19:05)
[2021-01-05] MEDS ORDERED: SCOPOLAMINE 1MG TRANSDERMAL PATCH TOP SCH (19:05)
[2021-01-05] MEDS ORDERED: NITR1CAP11 PO (23:12)
[2021-01-05] MEDS ORDERED: ONDA4TAB6 PO (23:12)
[2021-01-05 23:24] VITALS: BP 112/56
--- NOTE | 2021-01-05 23:40 | IPNPDOC ---
Text Note Date of Service The patient was seen on 01/05/21. NOTE Item Value Date Time White Blood Count 7.4 10^3/uL 01/05/21 1508 Red Blood Count 4.00 10^6/uL 01/05/21 1508 Hemoglobin 12.5 g/dl 01/05/21 1508 Hematocrit 38.1 % 01/05/21 1508 Mean Corpuscular Volume 95.3 fl 01/05/21 1508 Mean Corpuscular Hemoglobin 31.3 pg 01/05/21 1508 Mean Corpuscular Hemoglobin Concent 32.8 g/dl 01/05/21 1508 Red Cell Distribution Width 11.7 % 01/05/21 1508 Platelet Count 262 10^3/uL 01/05/21 1508 Immature Granulocyte % (Auto) 0.5 % 01/05/21 1508 Neutrophils (%) (Auto) 71.4 % H 01/05/21 1508 Lymphocytes (%) (Auto) 19.8 % L 01/05/21 1508 Monocytes (%) (Auto) 6.5 % 01/05/21 1508 Eosinophils (%) (Auto) 1.3 % 01/05/21 1508 Basophils (%) (Auto) 0.5 % 01/05/21 1508 Neutrophils # (Auto) 5.3 10^3/uL 01/05/21 1508 Lymphocytes # (Auto) 1.5 10^3/uL 01/05/21 1508 Monocytes # (Auto) 0.5 10^3/uL 01/05/21 1508 Eosinophils # (Auto) 0.1 10^3/uL 01/05/21 1508 White Blood Count 14.7 10^3/uL H 02/02/20 0701 01/05/21 SEEN IN ED RE AND UTI . 25 YO LMP 11/06/2020 ON NO CONTROL HX NAUSEA VOMITING DEHYDRATION RECURRENT UTI, AND LEFT FLANK PAIN. PAST HISTORY 06/28/2015 FEMALE CS TERM 8 LBS 2 OZ EMG, 02/01/20 TOLAC FEMALE 7LBS 8 OZ AT 38 WEEKS SURGERY C/S,RIGHT NEPHRECTOMY APPENDIX TONSILS. MEDICAL HISTORY RECURRENT UTI FAMILY HISTORY MOTHER BREAST CA FATHER UNKNOWN SISTER X1 A AND W BROTHER X1 AND W PHYSICAL EXAM DISTRESSED WITH NAUSEA NO VOMITING VITAL SIGNS STABLE DIZZINESS NOTED. PELVIC EXAMINATION UNREMARKABLE. US VIABLE IUP AT 9 WEEKS 3 DAYS EDC 08/07/2021. URINE MICRO INDICATES UTI. PLAN IV FLUIDS HYDRATE 1 UNIT MVI. SCOPOLAMINE PATCH ROBAFEN 1 GRAM IV. DISCHARGE WITH ANTIBIOTICS OFF WORK SLIP APPOINTMENT FT DRUM OB 10 DAYS WITH FIRST OB AND REPEAT URINE CULTURE . EXPRESSED UNDERSTANDING AND PHONE LINK GIVEN NAME: PAPITO DE PAZ DATE OF : 1995 AGE: 25 SEX: F REPORT #: [id number] ROOM: M ED TECHNOLOGIST: ALBA DOCTOR: YOLANDA BOYKIN PA-C Ordered for Date&Time: 01/05/21 165 cc: [~ rep ct ivnm] Service Date&Time: 01/05/211707 EXAMINATION REQUESTED: 1ST TRIMESTER US REASON FOR PATIENT VISIT: N/V REASON FOR EXAM/COMMENT: N/V, 8 WEEKS INDICATION: N/V, 8 WEEKS. COMPARISON: No pertinent priors TECHNIQUE: Transvesical imaging FINDINGS: Within the uterus there is an anechoic structure with increased echoes surrounding it consistent with a decidual reaction. Within the gestational sac there is a tiny anechoic structure consistent with a yolk sac. Also seen in the gestational sac there is echogenic material consistent with a pole the mean crown-rump length measurement of which is consistent with a 9 week 3 day gestational age. Based on that the estimated date of delivery is 08/07/2021. Doppler interrogation of the heart shows a heart rate of 169 beats per minute. Evaluation of the adnexal spaces shows no abnormalities. An incidental urinary bladder diverticulum was suspected. IMPRESSION: Early OB ultrasound as described above. <Electronically signed by Jovan Scales > 01/05/21 173 DD: Jovan Scales MD DO 01/05/21 173 DT: MM 01/05/211735 DS: BUBBA 01/05/21173301/05/21 173 VS,Patty, I+O VS, Patty, I+O Laboratory Tests 01/05/21 15:08 Vital Signs Date Time Temp Pulse Resp B/P (MAP) Pulse Ox O2 Delivery O2 Flow Rate FiO2 01/05/21 21:30 98.3 65 17 126/56 (79) 100 Room Air Trenton Wellington MD January 05, 2021 23:04
--- NOTE | 2021-01-06 07:42 | ECGEPIP ---
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
== END 2021-01-05 23:33 | disposition home or self-care (01) ==
LOC: M ED 14:28
DX: O23.41 Unspecified infection of urinary tract in pregnancy, first trimester (principal); O21.9 Vomiting of pregnancy, unspecified; O26.91 Pregnancy related conditions, unspecified, first trimester; R42 Dizziness and giddiness; R31.9 Hematuria, unspecified; Z3A.09 9 weeks gestation of pregnancy; Z79.899 Other long term (current) drug therapy
CPT/HCPCS: 76801; 80048; 80076; 80307; 81001; 82550; 82553; 83690; 84484; 84702; 85025; 87086; 87798; 93005; 93976; 96361; 96365; 96366; 96367; 96375; 99284; J0696; J2765; J3411

== ENCOUNTER 2021-01-08 18:16 | Emergency (ER) | payer OTHER ==
[~2021-01-08] VITALS: Ht 198.1 cm; Wt 89.2 kg
[~2021-01-08 18:16] MED LIST changes: +NITR1CAP11 PO; +ONDA4TAB6 PO; +PRENMIS3 PO
[2021-01-08 19:27] LABS: BASO % 0.4 % (0.0-1.0); EOS # 0.1 10^3/uL (0.0-0.5); EOS % 1.1 % (0.0-3.0); HEMATOCRIT 37.4 % (36.0-47.0); HEMOGLOBIN 12.4 g/dl (12.0-15.5); LYMPH # 1.3 10^3/uL (1.5-5.0); LYMPH % 17.3 % (24.0-44.0); MEAN CORPUSCULAR HEMOGLOBIN 31.6 pg (27.0-33.0); MEAN CORPUSCULAR HGB CONC 33.2 g/dl (32.0-36.5); MEAN CORPUSCULAR VOLUME 95.2 fl (80.0-96.0); MONO # 0.4 10^3/uL (0.0-0.8); MONO % 5.7 % (2.0-8.0); NEUTROPHILS # 5.7 10^3/uL (1.5-8.5); NEUTROPHILS % 74.8 % (36.0-66.0); PLATELET COUNT, AUTOMATED 240 10^3/uL (150-450); RED BLOOD COUNT 3.93 10^6/uL (4.00-5.40); WHITE BLOOD COUNT 7.6 10^3/uL (4.0-10.0)
[2021-01-08 19:58] LABS: APPEARANCE, URINE HAZY (CLEAR); BACTERIA, URINE AUTO NEGATIVE (NEGATIVE); BILIRUBIN, URINE AUTO NEGATIVE (NEGATIVE); BLOOD, URINE BLOOD NEGATIVE (NEGATIVE); COLOR, URINE YELLOW (YELLOW); GLUCOSE, URINE (UA) AUTO NEGATIVE (NEGATIVE); KETONE, URINE AUTO NEGATIVE (NEGATIVE); LEUKOCYTE ESTERASE, URINE AUTO 2+ (NEGATIVE); MUCUS, URINE SMALL (NEGATIVE); NITRITE, URINE AUTO NEGATIVE (NEGATIVE); PROTEIN, URINE AUTO 2+ mg/dL (NEGATIVE); RBC, URINE AUTO 4 /HPF (0-3); SPECIFIC GRAVITY URINE AUTO 1.014 (1.002-1.035); SQUAMOUS EPITHELIAL CELL UR AU 12 /HPF (0-6); WBC, URINE AUTO 9 /HPF (0-3)
[2021-01-08 20:05] LABS: ALBUMIN 3.7 GM/DL (3.2-5.2); BILIRUBIN,DIRECT 0.2 MG/DL (0.0-0.2); BILIRUBIN,TOTAL 0.9 MG/DL (0.2-1.0); TOTAL PROTEIN 6.6 GM/DL (6.4-8.2)
[2021-01-08] MEDS ORDERED: ONDANSETRON 4MG/2ML VIAL IV ONE (20:10)
[2021-01-08] MEDS ORDERED: cefTRIAXone SOD 1 GM in D5W MINI-BAG PLUS 50 ML IV ONE (20:10)
[2021-01-08] MEDS ORDERED: NS 1,000 ML IV ONE (20:10)
[2021-01-08] MEDS ORDERED: ONDA4TAB6 PO (20:18)
[2021-01-08] MEDS ORDERED: NITR100C2 PO (20:18)
[2021-01-08] MEDS ORDERED: ZOLO100T PO (20:24)
--- NOTE | 2021-01-08 21:32 | REPVR ---
PROCEDURE INFORMATION: Exam: US Retroperitoneal Limited, Kidneys Exam date and time: 01/08/2021 8:50 PM Age: 25 years old Clinical indication: Abdominal pain; Flank; Left; ; Prior surgery; Surgery date: 6+ months; Surgery type: RT nephrectomy; Additional info: Left flank pain TECHNIQUE: Imaging protocol: Real-time ultrasound of the retroperitoneum with image documentation. Examination was focused on the kidneys. COMPARISON: GALLBLADDER US 12/09/2020 1:39 AM FINDINGS: Right kidney: Status post right nephrectomy. Left kidney: Left kidney measures 12.4 x 5.8 x 6.2 cm. Bladder: Bladder empty. Uterus: Incidental note is made of an early 1st trimester gestation in the uterus. IMPRESSION: Normal left kidney. Status post right nephrectomy. No abnormalities demonstrated. Electronically signed by: Roly Grimaldo On 01/08/2021 21:32:20 PM
[2021-01-08] MEDS ORDERED: PROMETHAZINE INJ 25 MG/ML VIAL (J2550) IV ONE (22:00)
[2021-01-08] MEDS ORDERED: PYRI25TA2 PO (22:55)
[2021-01-08] MEDS ORDERED: UNIS25TA3 PO (22:55)
[2021-01-08] MEDS ORDERED: PROM25TA12 PO (22:55)
[2021-01-08 23:33] VITALS: BP 111/66
== END 2021-01-08 23:35 | disposition home or self-care (01) ==
LOC: M ED 18:16
DX: O23.42 Unspecified infection of urinary tract in pregnancy, second trimester (principal); Z88.6 Allergy status to analgesic agent; Z88.8 Allergy status to other drugs, medicaments and biological substances; Z3A.00 Weeks of gestation of pregnancy not specified
CPT/HCPCS: 76775; 80047; 80076; 81001; 83690; 84702; 85025; 96361; 96365; 96375; 99284; J0696; J2405

== ENCOUNTER 2021-01-23 01:14 | Emergency (ER) | payer OTHER ==
[~2021-01-23] VITALS: Ht 167.6 cm; Wt 90.9 kg
[~2021-01-23 01:14] MED LIST changes: +NITR100C2 PO; +PROM25TA12 PO; +PYRI25TA2 PO; +UNIS25TA3 PO; +ZOLO100T PO
[2021-01-23] MEDS ORDERED: LIDOCAINE W/EPINEPHRINE 1% 20ML VIAL SC ONE (03:05)
[2021-01-23] MEDS ORDERED: CEPH500C PO (03:33)
[2021-01-23] MEDS ORDERED: CEPHALEXIN 500 MG CAP PO ONE (03:35)
[2021-01-23 04:05] VITALS: BP 117/76
== END 2021-01-23 04:09 | disposition home or self-care (01) ==
LOC: M ED 01:14
DX: H60.02 Abscess of left external ear (principal); Z88.8 Allergy status to other drugs, medicaments and biological substances; Z79.899 Other long term (current) drug therapy

== ENCOUNTER → 2021-04-06 | Outpatient (CLI) | payer OTHER ==
[~2021-04-06] MED LIST changes: +CEPH500C PO
--- NOTE | 2021-04-06 12:03 | REP ---
INDICATION: ANATOMY. COMPARISON: 01/05/2021. TECHNIQUE: Multiple ultrasonographic images of the gravid uterus. FINDINGS: There is a single intrauterine gestation in a footling breech presentation. heart rate is 144 beats per minute. The placenta is anterior with grade 0 maturity. There is no placenta previa. The umbilical cord inserts centrally onto the placenta. Cervix measures 5.1 cm length. The composite ultrasound gestational age by today's ultrasound is 21 weeks 6 days with an IRVIN of 08/11/2021. Gestational age by the 1st ultrasound is 21 weeks 4 days with an IRVIN of 08/13/2021. Gestational age by LMP is 21 weeks 4 days with an IRVIN of 08/13/ Estimated weight is 465 g/1 lb, 0 oz. This is the 51st percentile for 21 weeks 4 days. The following anatomic structures are identified and are unremarkable: Cranium, cavum septum pellucidum, falx, intracranial ventricles, choroid plexus, cerebellum, cisterna magna, facial profile, orbits, upper lip, lungs, cardiac rhythm, four-chamber heart, cardiac right left ventricular outflow tracts, diaphragm, stomach, abdominal wall, right and left kidneys, bladder, spine, right and left upper extremities, right left lower extremities, 3 vessel cord. No anomalies are identified. IMPRESSION: No anomalies are identified. <Electronically signed by Zane Mcnamara > 04/06/21 [id number]
== END ==
LOC: M RAD 10:14
PROVIDERS: ATTEND Nurse Practitioner Women's Health
DX: Z36.9 Encounter for antenatal screening, unspecified (principal); Z3A.21 21 weeks gestation of pregnancy

== ENCOUNTER 2021-05-20 20:22 | Emergency (ER) | payer OTHER ==
[~2021-05-20] VITALS: Ht 167.6 cm; Wt 103.3 kg
[2021-05-20 22:53] LABS: BASO % 0.5 % (0.0-1.0); EOS # 0.1 10^3/uL (0.0-0.5); EOS % 1.2 % (0.0-3.0); HEMATOCRIT 31.1 % (36.0-47.0); HEMOGLOBIN 10.1 g/dl (12.0-15.5); LYMPH # 0.8 10^3/uL (1.5-5.0); LYMPH % 9.1 % (24.0-44.0); MEAN CORPUSCULAR HEMOGLOBIN 32.2 pg (27.0-33.0); MEAN CORPUSCULAR HGB CONC 32.5 g/dl (32.0-36.5); MONO # 0.6 10^3/uL (0.0-0.8); MONO % 6.9 % (2.0-8.0); NEUTROPHILS # 7.2 10^3/uL (1.5-8.5); NEUTROPHILS % 81.3 % (36.0-66.0); PLATELET COUNT, AUTOMATED 186 10^3/uL (150-450); RED BLOOD COUNT 3.14 10^6/uL (4.00-5.40); WHITE BLOOD COUNT 8.8 10^3/uL (4.0-10.0)
[2021-05-20 23:16] LABS: ALBUMIN 2.4 GM/DL (3.2-5.2); ALT/SGPT 10 U/L (12-78); BILIRUBIN,TOTAL 0.3 MG/DL (0.2-1.0); BLOOD UREA NITROGEN 8 MG/DL (7-18); CALCIUM LEVEL 8.8 MG/DL (8.5-10.1); CARBON DIOXIDE LEVEL 26 MEQ/L (21-32); CHLORIDE LEVEL 107 MEQ/L (98-107); CREATININE FOR GFR 0.64 MG/DL (0.55-1.30); GLOMERULAR FILTRATION RATE > 60.0 (>60); GLUCOSE, FASTING 100 MG/DL (70-100); LDH LACTATE DEHYDROGENASE 143 U/L (84-246); MAGNESIUM LEVEL 1.7 MG/DL (1.8-2.4); POTASSIUM SERUM 4.2 MEQ/L (3.5-5.1); SODIUM LEVEL 140 MEQ/L (136-145); TOTAL PROTEIN 5.6 GM/DL (6.4-8.2)
--- NOTE | 2021-05-20 23:48 | IPNPDOC ---
Text Note Date of Service The patient was seen on 05/20/21. NOTE non-stress test reading; Category I, moderate variability, accelerations present (10x10s), no decelerations noted. IMPRESSION Testing is appropriate for gestational age and overall reassuring. VS,Adrianbone, I+O VS, Fishbone, I+O Laboratory Tests 05/20/21 22:31 Vital Signs Date Time Temp Pulse Resp B/P (MAP) Pulse Ox O2 Delivery O2 Flow Rate FiO2 05/20/21 20:24 98.5 115 20 128/81 (97) 100 Room Air YAMILETH MENDEZ DO May 20, 2021 23:48
[2021-05-21] MEDS ORDERED: FLON1SPR NARES (00:30)
[2021-05-21 00:45] VITALS: BP 126/74
== END 2021-05-21 00:56 | disposition home or self-care (01) ==
LOC: M ED 20:22
DX: O98.512 Other viral diseases complicating pregnancy, second trimester (principal); B34.1 Enterovirus infection, unspecified; B34.8 Other viral infections of unspecified site; Z3A.28 28 weeks gestation of pregnancy; Z79.899 Other long term (current) drug therapy

== ENCOUNTER 2021-06-01 16:28 | Inpatient (IN) | payer OTHER ==
[~2021-06-01] VITALS: Ht 167.6 cm; Wt 101.9 kg
[~2021-06-01 16:28] MED LIST changes: +FLON1SPR NARES
[2021-06-01] MEDS ORDERED: ACET-897 PO (16:52)
[2021-06-01] MEDS ORDERED: MACR100C43 PO (16:52)
[2021-06-01] MEDS ORDERED: PEPC40TA12 PO (16:52)
[2021-06-01] MEDS ORDERED: HOME MED LIST COMPLETE! XX SCH (16:55)
[2021-06-01 16:56] VITALS: BP 116/66
[2021-06-01 17:10] VITALS: BP 119/78
[2021-06-01 17:58] LABS: HEMATOCRIT 32.8 % (36.0-47.0); HEMOGLOBIN 10.6 g/dl (12.0-15.5); MEAN CORPUSCULAR HGB CONC 32.3 g/dl (32.0-36.5); MEAN CORPUSCULAR VOLUME 99.1 fl (80.0-96.0); PLATELET COUNT, AUTOMATED 224 10^3/uL (150-450); RED BLOOD COUNT 3.31 10^6/uL (4.00-5.40); WHITE BLOOD COUNT 10.4 10^3/uL (4.0-10.0)
--- NOTE | 2021-06-01 18:04 | REP ---
INDICATION: 29 weeks gestation. RUQ pain and tendernes. Preeclampsia COMPARISON: None. TECHNIQUE: Real time little scale ultrasound examination using curved array transducer. FINDINGS: Liver is normal in contour, size, and echogenicity without focal hepatic lesions identified. Pancreas is incompletely evaluated due to interposed bowel gas. The gallbladder is normal and without gallstones, wall thickening, or pericholecystic fluid. No biliary ductal dilatation is appreciated and the common bile duct measures 3.4 mm diameter. Right kidney is absent and consistent with prior nephrectomy. No ascites in the visualized right upper quadrant. IMPRESSION: Prior nephrectomy. No acute process. <Electronically signed by Sukh Chaidez > 06/01/21 1800
[2021-06-01 18:24] LABS: ALT/SGPT 11 U/L (12-78); BILIRUBIN,TOTAL 0.2 MG/DL (0.2-1.0); CREATININE FOR GFR 0.61 MG/DL (0.55-1.30); GLOMERULAR FILTRATION RATE > 60.0 (>60); LDH LACTATE DEHYDROGENASE 154 U/L (84-246); URIC ACID 5.4 MG/DL (2.6-6.0)
[2021-06-01] MEDS ORDERED: FIORICET TAB PO ONE (19:00)
[2021-06-01 20:19] VITALS: BP 126/73
[2021-06-01 20:38] LABS: APPEARANCE, URINE HAZY (CLEAR); BACTERIA, URINE AUTO NEGATIVE (NEGATIVE); BILIRUBIN, URINE AUTO NEGATIVE (NEGATIVE); BLOOD, URINE BLOOD 1+ (NEGATIVE); COLOR, URINE YELLOW (YELLOW); GLUCOSE, URINE (UA) AUTO NEGATIVE (NEGATIVE); KETONE, URINE AUTO NEGATIVE (NEGATIVE); LEUKOCYTE ESTERASE, URINE AUTO TRACE (NEGATIVE); NITRITE, URINE AUTO NEGATIVE (NEGATIVE); PROTEIN, URINE AUTO 2+ mg/dL (NEGATIVE); RBC, URINE AUTO 2 /HPF (0-3); SPECIFIC GRAVITY URINE AUTO 1.011 (1.002-1.035); SQUAMOUS EPITHELIAL CELL UR AU 14 /HPF (0-6); UROBILINOGEN, URINE AUTO 0.2 mg/dL (0.0-2.0); WBC, URINE AUTO 2 /HPF (0-3)
[2021-06-01] MEDS ORDERED: BETAMETHASONE SOLUSPAN 6MG/ML 5ML VIAL (J0702 PER 3MG) IM SCH (21:00)
--- NOTE | 2021-06-01 21:24 | HPEPDOC ---
Obstetrical History & Physical General Date of Admission [id number] History of Present Illness Ashlee Sparks is a 26yo presenting for evaluation for preeclampsia. She was seen in the ED for headaches about 10 days ago and had mild range blood pressures 150s/80s; she was seen in clinic for follow up, preeclampsia labs were within normal limits other than a 24-hr urine protein of 690. Over the last several days she has continued to have headaches unrelieved by tylenol 1000mg every 6 hours (per pt); shortness of breath which she has had previously but now feels worse; right upper quadrant pain which is dull, constant and has been around for a week or so but is now worsening. She endorses nausea but no vomiting. She states she feels like she is urinating less than usual but denies dysuria, urgency, blood in urine. Care Care: Good Care Dating Final EDC: Aug 15, 2021 Final EDC by: LMP Antepartum Course Diagnos(e)s isolated elevated blood pressure without diagnosis of hypertension proteinurea hx of pyelonephritis in this , on macrobid prophylaxis hx of delivery followed by successful history of right nephrectomy as child obesity, excessive weight gain depression history of PPH Pre- weight (lbs.): 190 Admission Weight (lbs.): 223 Change in Weight (lbs.): 33 Past Medical History Past Obstetrical History : Past Obstetrical History: Multigravida (G1 PLTCD at 40 wks NRFHT; G2 38+5 7# 7oz) Past Medical History Medical History hypothyroid on 150mcg depression/anxiety urinary diverticuli Surgical History: Other (Hx of right nephrectomy; Hx delivery) Family History Family History Mother: breast cancer, hypertension Maternal grandfather: hypertension, congestive heart failure Social History Marital Status: Family situation: Spouse/partner home Psychosocial History: Anxiety, Depression * Smoker: non-smoker Alcohol: Denies Drugs: denies Abuse Violence Screening Have you been hit/kicked/slapp: No Have you been sexually assault: No Imunizations Tdap status: current Influenza Status: current Allergies Coded Allergies: hydrocodone (Verified Allergy, Intermediate, hives, 12/08/20) prochlorperazine (Verified Adverse Reaction, Intermediate, panic attack, 12/08/20) Medications Scheduled Famotidine (Pepcid) 40 Mg Tablet, 1 TAB PO DAILY Nitrofurantoin Monohyd/M-Cryst (Macrobid 100 mg Capsule) 100 Mg Capsule, 100 MG PO BID 95/Iron Fum/Folic/Dha ( + Dha Combo Pack) 1 Each Combo..pkg, 1 TAB PO DAILY Sertraline Hcl (Zoloft) 100 Mg Tablet, 100 MG PO DAILY Miscellaneous Medications Acetaminophen (Tylenol Extra Strength) 500 Mg Tablet, 500 MG PO Physical Examination Physical Examination GENERAL: Alert and oriented times three. Neuro: CN 2-12 grossly intact with no focal deficits HEART RATE: Regular rate and rhythm. LUNGS: Clear to auscultation (CTA). ABDOMEN: Gravid and tender to deep palpation right upper quadrant; no guarding or rebound FETUS: Is variable presentation, transverse then cephalic on ultrasound EXTREMITIES: No edema. Vital Signs/I&O Vital Signs Date Time Temp Pulse Resp B/P (MAP) Pulse Ox O2 Delivery O2 Flow Rate FiO2 06/01/21 18:23 22 06/01/21 17:10 96 119/78 (92) 06/01/21 16:56 98.4 Laboratory Data 24H LABS Laboratory Tests 2 06/01/21 17:26: Coronavirus (COVID-19)(PCR) NEGATIVE 06/01/21 17:31: Nucleated Red Blood Cells % (auto) 0.0, Glomerular Filtration Rate > 60.0, Uric Acid 5.4, Total Bilirubin 0.2, Aspartate Amino Transf (AST/SGOT) 7, Alanine Aminotransferase (ALT/SGPT) 11L, Lactate Dehydrogenase 154 06/01/21 20:25: Urine Color YELLOW, Urine Appearance HAZY, Urine pH 6.0, Urine Specific [place] 1.011, Urine Protein 2+H, Urine Glucose (Auto)(UA) NEGATIVE, Urine Ketones (Auto) NEGATIVE, Urine Blood 1+H, Urine Nitrite NEGATIVE, Urine Bilirubin NEGATIVE, Urine Urobilinogen 0.2, Urine Leukocyte Esterase (Auto) TRACEH, Urine WBC (Auto) 2, Urine RBC (Auto) 2, Urine Hyaline Casts (Auto) 0, Urine Bacteria (Auto) NEGATIVE, Urine Squamous Epithelial Cells 14, Urine Sperm (Auto) CBC/BMP Laboratory Tests 06/01/21 17:31 Microbiology Microbiology 06/01/21 Urine Culture, Received Pending Pertinent Laboratoy Data Blood Type: O+ RBC Antibody Screen: Negative HIV: Negative Hepatitis B: Negative Rapid Plasma Reagin: Nonreactive Rubella: Immune Varicella: Immune Chlamydia/Gonorrhea: Negative Group B Streptococcus: Unknown Glucose Tolerance Test: 79 Anatomy Ultrasound Ultrasound Date: Apr 06, 2021 Placenta Location: Anterior Normal Anatomy: Yes Placenta Previa: No Estimated Weight (grams): 465 Other Ultrasounds Bedside ultrasound growth scan [id number] EFW 1586g, AUA 29+6. No evidence of growth restriction. MVP 4.5cm. Steroid Therapy Steroid Therapy: Yes Date #1: Jun 01, 2021 Reason possible preeclampsia Vaginal Examination Presentation: Cephalic presentation Assessment Heart Rate (FHR): 140 Variability: Moderate Accelerations: Positive Decelerations: None Tocometer Contractions: No Multi-drug resistant Organism: No history of MDRO Assessment/Plan Assessment Ashlee Sparks is a 26-year-old at 29+2 weeks by LMP and 1st trimester ultrasound with elevated blood pressure without diagnosis of hy pertension and proteinuria. Symptoms concerning for preeclampsia. I consulted [facility] service and they recommended admission and monitoring for development of preeclampsia. They are prepared to accept her transfer once she meets the diagnosis of preeclampsia. While in triage her CBC and preeclampsia labs were within normal limits. RUQ ultrasound was normal. No signs of infection. Growth scan show normal growth and fluid level. Appropriate for gestational age strip. Plan Admission for continuous monitoring. repeat CBC and preeclampsia labs in the morning formal growth ultrasound in the morning urinalysis and urine culture obtained betamethasone for maturity head CT for refractory headaches vital signs every 4 hours regular diet SCDs while in bed Labor and Delivery Counseling At this time the admission is for monitoring with no plans for delivery. However, monitoring may necessitate delivery in a quick manner, which would be likely via . Therefore we discussed that if delivery is necessary the standard risks of delivery including bleeding hemorrhage infection; if surgical delivery than damage to nearby organs and risks of anesthesia. The goal if she requires delivery in a planned fashion is to transfer to [place]. MARGO MARRERO DO Jun 01, 2021 21:24
[2021-06-01 21:31] VITALS: BP 133/81
--- NOTE | 2021-06-01 21:36 | REPVR ---
PROCEDURE INFORMATION: Exam: CT Head Without Contrast Exam date and time: 06/01/2021 9:00 PM Age: 26 years old Clinical indication: Pain; Headache; Additional info: 26yo at 29 weeks with headaches refractory to medicatio TECHNIQUE: Imaging protocol: Computed tomography of the head without contrast. Radiation optimization: All CT scans at this facility use at least one of these dose optimization techniques: automated exposure control; mA and/or kV adjustment per patient size (includes targeted exams where dose is matched to clinical indication); or iterative reconstruction. COMPARISON: No relevant prior studies available. FINDINGS: Brain: Normal. No hemorrhage. Unremarkable white matter. No mass effect. Cerebral ventricles: No ventriculomegaly. Paranasal sinuses: Visualized sinuses are unremarkable. No fluid levels. Mastoid air cells: Visualized mastoid air cells are well aerated. Bones/joints: Unremarkable. No acute fracture. Soft tissues: Unremarkable. IMPRESSION: No acute intracranial abnormality. Electronically signed by: Roly Grimaldo On 06/01/2021 21:36:04 PM
[2021-06-01] MEDS ORDERED: SERTRALINE 100 MG TAB PO SCH (21:50)
[2021-06-01] MEDS ORDERED: ONDANSETRON 4 MG TAB PO ONE (22:00)
[2021-06-01 23:16] LABS: APPEARANCE, URINE HAZY (CLEAR); BACTERIA, URINE AUTO NEGATIVE (NEGATIVE); BILIRUBIN, URINE AUTO NEGATIVE (NEGATIVE); BLOOD, URINE BLOOD 1+ (NEGATIVE); COLOR, URINE YELLOW (YELLOW); GLUCOSE, URINE (UA) AUTO NEGATIVE (NEGATIVE); KETONE, URINE AUTO NEGATIVE (NEGATIVE); LEUKOCYTE ESTERASE, URINE AUTO NEGATIVE (NEGATIVE); MUCUS, URINE SMALL (NEGATIVE); NITRITE, URINE AUTO NEGATIVE (NEGATIVE); PROTEIN, URINE AUTO 2+ mg/dL (NEGATIVE); RBC, URINE AUTO 1 /HPF (0-3); SPECIFIC GRAVITY URINE AUTO 1.012 (1.002-1.035); SQUAMOUS EPITHELIAL CELL UR AU 7 /HPF (0-6); UROBILINOGEN, URINE AUTO 0.2 mg/dL (0.0-2.0); WBC, URINE AUTO 2 /HPF (0-3)
[2021-06-01] MEDS ORDERED: LR 1,000 ML IV ONE (23:45)
[2021-06-02] VITALS (12 sets, daily range): BP systolic 123–146; BP diastolic 59–81
--- NOTE | 2021-06-02 01:12 | REPVR ---
PROCEDURE INFORMATION: Exam: US ; Follow up Exam date and time: 06/01/2021 11:22 PM Age: 26 years old Clinical indication: Condition or disease; Lmp or gestational age (weeks): 11/06/20; Pre-eclampsia; 3rd ; ; Additional info: Please perform growth scan, preeclampsia TECHNIQUE: Imaging protocol: Transabdominal ultrasound of the uterus, real time with image documentation. Follow-up (eg, re-evaluation of size by measuring standard growth parameters and amniotic fluid volume, re-evaluation of organ system(s) suspected or confirmed to be abnormal on a previous scan). COMPARISON: US OBS SINGEL GEST 04/06/2021 10:25 AM FINDINGS: Gestation: Single living intrauterine fetus in cephalic position. Visualized anatomy is unremarkable. heart rate: 146 bpm. Presentation: Cephalic Placenta: Anterior placenta. No placenta previa. Amniotic fluid index: 15.3 cm. BIOMETRY: Gestational age (AUA): 30 weeks 5 days. Estimated due date (AUA): 08/11/2021. Estimated weight: 1626 g. Estimated weight percentile: 65%. Biparietal diameter: 7.6 cm. Head circumference: 27.6 cm. Abdominal circumference: 27.0 cm. Femur length: 5.7 cm. MATERNAL: Cervix: Cervix measures 4.3 cm. Cervix is closed without funneling. IMPRESSION: 1. Single living intrauterine gestation in cephalic position. No acute findings. 2. Estimated gestational age is 30 weeks 5 days. Electronically signed by: Brandon Boyle On 06/02/2021 01:11:29 AM
[2021-06-02] MEDS ORDERED: FIORICET TAB PO ONE (04:30)
[2021-06-02] MEDS ORDERED: MAGNESIUM OXIDE 400MG TAB (MAG-OX) PO SCH (04:40)
[2021-06-02] MEDS ORDERED: ONDANSETRON 4 MG TAB PO SCH (06:00)
--- NOTE | 2021-06-02 06:30 | IPNPDOC ---
Text Note Date of Service The patient was seen on 06/02/21. NOTE Overnight events: head CT negative for acute processes formal growth scan 1686g, 65% her headache has improved to 4/10 after fioricet x2 right upper quadrant pain decreased to 3/10 currently complains of contraction pain 6/10; denies vaginal bleeding or loss of fluid bp normal range fhr appropriate for gestational age, contractions every 2-3 minutes I collected a GBS swab; I performed a speculum exam, visually closed cervix, physiologic discharge; wet prep and AMANDA negative; digital exam 1cm dilation 50% effacement -3 station. Discussed with patient that labor is contractions that cause cervical change. 1cm is the baseline, we will likely recheck her in several hours if she keeps laura. Discussed r/b/a to nifedipine tocolysis and will initiate at 10mg q20 minutes x3; then 20mg q6h; this can be continued for 48 hours. If she exhibits cervical change will start magnesium sulfate IV and initiate transfer to [place]. VS,[place]ake[place], I+O VS, Adrianbone, I+O Laboratory Tests 06/01/21 17:31 Vital Signs Date Time Temp Pulse Resp B/P (MAP) Pulse Ox O2 Delivery O2 Flow Rate FiO2 06/02/21 05:47 18 06/02/21 04:11 98.8 88 123/59 (80) I&O- Last 24 Hours up to 6 AM 06/02/21 06:00 Intake Total 200 ml Output Total 500 ml Balance -300 ml MARGO MARRERO DO Jun 02, 2021 06:30
[2021-06-02] MEDS: NIFEdipine 10 MG CAP PO SCH ×3 (06:47→07:37)
[2021-06-02] MEDS ORDERED: LR 1,000 ML IV SCH (08:15)
[2021-06-02] MEDS ORDERED: MAG Sulf (OBGYN) 20GM/500ML 20,000 MG in IV 1 EA IV SCH (08:15)
[2021-06-02] MEDS ORDERED: MAG Sulf (L&D) 4 GM/100 ML 4 GM in IV 1 EA IV ONE (08:15)
[2021-06-02] MEDS ORDERED: SERTRALINE 100 MG TAB PO SCH (09:00)
[2021-06-02] MEDS ORDERED: NITROFURANTOIN (MACROBID) 100 MG CAP PO SCH (09:00)
--- NOTE | 2021-06-02 09:04 | TRANSCARE ---
Transition of Care: Transition of Care Ms. Sparks is a 26yo [id number] at 29+3 by LMP of [id number] consistent with 9+1 US on being transferred to [facility] for pre-eclampsia with severe features, currently on Magnesium started at 0845 . On she presented to the clinic and reported that during an ER visit she had high blood pressure. at this time she was asymptomatic and her blood pressure in the clinic was normotensive. On review in the ER record she had a reading of 150/72 at 2330 and 134/90 at 2230. She was otherwise reported to be normotensive on multiple readings, she states that she had elevated blood pressure the entire visit, but "they were not recording it." She was sent for pre-eclampsia labs and given return precautions. Her resulting pre-eclampsia labs had a urine P:C at 0.9 and 24h protein at 600, the remainder of the labs were normal. She was called into the clinic for evaluation on , on arrival she was normotensive. She reported she had a headache that was not responsive to tylenol and right upper quadrant pain that is mild and to her potentially reflux related. It was recommended that she go to labor and delivery for monitoring and further evaluation as it is highly concerning that she have pre-eclampsia with severe features. She said she felt fine an declined admission despite extensive counseling, and was asked to sign an against medical advice form. She was the serially contacted by providers to monitor her. She came to the hospital on for evaluation. She was normotensive, but endorsed continued headache, unchanged mild right upper quadrant pain, visual changes, and shortness of breath. [facility] was contacted and recommended admission and evaluation for potential developing pre-eclampsia as her blood pressures were not technically meeting criteria for the condition. She was given betamethasone at 0 on . She was given fioricet and Mg oxide for her headache with minimal improvement so a CT of the head was performed which was unremarkable. A growth scan was performed and it was unremarkable. A right upper quadrant ultrasound was also unremarkable. Her liver and renal function and platelets remained normal. A urinalysis was without suggestion of infection. The next morning she began to complain of contractions. Her cervical exam was 1/50/-3 on at 0600. She was started on nifedipine at 0630 [id number]. Her cervical exam was unchanged at 0800 and she reported the strength of the contractions to be unchanged. During the morning her blood pressures began to slowly increase from normotensive to low mild range. Magnesium was then started for pre-eclampsia with severe features as she now met criteria and [facility] was contacted for transfer. At this time she reports an improved headache. She states she has unchanged right upper quadrant pain, visual changes, and shortness of breath. OB INFORMATION LMP [id number] -> IRVIN [id number] 1T US 9+1 -> IRVIN CWD Final IRVIN [id number] by LMP c/w 9wk US 1. pre-eclampsia with severe features 2. history of and successful , desires TOLAC 3. history of right nephrectomy as child (unsure indication), baseline RFP normal 4. pyelonephritis in 1T, reports frequent UTI, on macrobid prophylaxis 5. obesity, pre- BMI 31, 33# gain thus far 6. depression/anxiety, on zoloft, declined consult 7. needs pap 8. history of hemorrhage, reports no transfusion required HISTORY OB: G1 2014 40wk PLTCD for NRFHT 8#2 PPH no transfusion, spontaneous labor. G2 2019 38+5VBAC 7#7 spontaneous labor, augmented. BOTTLE CAPPER: genital warts MHX: urinary diverticuli, depression, anxiety, obesity, single kidney SHX: right nephrectomy (as child, unsure indication), , appendectomy ALL: compazine SOC: denied a/t/d FHX: denied genetic disorders/ defects ULTRASOUNDS Datin 9+1 -> IRVIN CWD Anatomy: [id number] placenta anterior, normal anatomy NEW OB LABS O pos, ABS neg CBC 03/07/33231 HIV neg, RPR neg, G/C neg, UCx neg, hep B neg Rubella/varicella immune cystic fibrosis and sickle cell negative hemoglobin electrophoresis normal 28WK LABS GTT 121 HIV pending CBC 05/08/34 [facility] LABS collected [id number] 24h protein 690.8 P:C 0.9 CBC 05/08/34 UA 6.0 LDH 179 Cr 0.71 LFTs 08/11 [facility] LABS collected [id number] CBC 06/06/32/224 UA 5.6 LDH 154 LFTs 03/07 Cr 0.61 UA 2+ protein, LE neg, NIT neg, bacteria neg IMAGING [id number] CT Head unremarkable RUQ US unremarkable Growth US EFW 1626g 65%ile, LAN 15.3, CL 4.3cm PREVENTION influenza vaccine: recommended HPV vaccine: reports UTD COVID vaccine: reports UTD control: vasectomy planned YAMILETH MENDEZ DO Jun 02, 2021 09:04
[2021-06-02] MEDS ORDERED: LABETALOL 100MG/20ML VIAL IV PRN ×3 (09:10→09:15)
[2021-06-02] MEDS ORDERED: CALCIUM GLUCONATE 1,000 MG in D5W MINI-BAG PLUS 100 ML IV PRN (09:20)
[2021-06-02] MEDS ORDERED: D5W MINI IV PRN (09:20)
[2021-06-02] MEDS ORDERED: CALCIUM GLUCONATE IV PRN (09:20)
[2021-06-02] MEDS ORDERED: NIFEdipine 10 MG CAP PO SCH (13:00)
== END 2021-06-02 09:51 | disposition short-term general hospital (02) | DRG 832 ==
LOC: M LDO 16:28 → M LDI 20:34
PROVIDERS: ADMIT Obstetrics & Gynecology; ATTEND Obstetrics & Gynecology
DX: O14.13 Severe pre-eclampsia, third trimester (principal); O47.1 False labor at or after 37 completed weeks of gestation; Z3A.29 29 weeks gestation of pregnancy; O99.283 Endocrine, nutritional and metabolic diseases complicating pregnancy, third trimester; E03.9 Hypothyroidism, unspecified; O99.343 Other mental disorders complicating pregnancy, third trimester; E66.9 Obesity, unspecified; F32.9 Major depressive disorder, single episode, unspecified; F41.9 Anxiety disorder, unspecified; O34.211 Maternal care for low transverse scar from previous cesarean delivery; O99.213 Obesity complicating pregnancy, third trimester; Z20.822 Contact with and (suspected) exposure to COVID-19

== ENCOUNTER → 2021-07-01 | Outpatient (REF) | payer OTHER ==
[~2021-07-01] MED LIST changes: +ACET-897 PO; +MACR100C43 PO; +PEPC40TA12 PO
== END ==
LOC: M LAB REF 12:12
PROVIDERS: ATTEND Registered Nurse
DX: Z36.89 Encounter for other specified antenatal screening (principal); Z3A.33 33 weeks gestation of pregnancy

== ENCOUNTER 2021-07-06 13:17 | Outpatient (CLI) | payer OTHER ==
[~2021-07-06] VITALS: Ht 167.6 cm; Wt 103.1 kg
[2021-07-06 13:29] VITALS: BP 111/70
[2021-07-06] MEDS ORDERED: HOME MED LIST COMPLETE! XX SCH (13:35)
--- NOTE | 2021-07-06 15:04 | REP ---
INDICATION: BPP 34wk complicated by protienuria and right nephrectomy. COMPARISON: 04/06/2021. TECHNIQUE: Limited Ob ultrasound for amniotic fluid volume, umbilical artery Doppler and biophysical profile. FINDINGS: Scanning demonstrates a viable single intrauterine gestation in a cephalic lie. motion is observed and heart rate is recorded at 135 beats per minute. An anterior, grade zero placenta is seen without evidence of previa. Amniotic fluid is subjectively normal. The LAN is 14.4 cm with normal range 7.9-24.9. Closed cervical length is measured at 3.2 cm cm transabdominally. No extrauterine abnormality is observed. Mid cord umbilical artery Doppler shows an S/D ratio 2.46 (normal) and resistive index 0.59. There is normal forward diastolic flow throughout. No anomaly evaluation is requested or performed. IMPRESSION: Viable single intrauterine gestation at 34 weeks 6 days by prior sonography. IRVIN by prior sonography 08/13/2021.. Normal heart rate, mid cord umbilical artery Doppler and LAN as described above. <Electronically signed by Torin Ariza > 07/06/21 [id number]
[2021-07-06 15:08] VITALS: BP 89/50
--- NOTE | 2021-07-06 15:42 | IPNPDOC ---
Text Note Date of Service The patient was seen on 07/06/21. NOTE S: 26yo IRVIN [id number] @34+2 presenting to triage for c/o cramping with concern for PTL, denies bleeding, LOF, states reassuring FM. course is complicated by proteinuria, hx right nephrectomy, depression, and contractions. O: VSS RNST, FHR 150, mod variability, +accel, -decel, one contraction noted Cervical exam unchanged from previous exam at -/-3 Bedside ultrasound completed by radiology for BPP. Report noted normal heart rate, doppler and LAN of 14.4cm A: contractions Suspected condition not found [id number] P:Discharge to home with strict return precautions, PTL precautions, understanding of how to call and kick counts. Keep scheduled f/u appt and APFT VS,Fishbone, I+O VS, Fishbone, I+O Vital Signs Date Time Temp Pulse Resp B/P (MAP) Pulse Ox O2 Delivery O2 Flow Rate FiO2 07/06/21 13:29 97.9 136 18 111/70 (84) 100 Room Air TRENA LA CNM Jul 06, 2021 15:41
[2021-07-06 15:43] VITALS: BP 122/72
== END 2021-07-06 15:45 | disposition home or self-care (01) ==
LOC: M LDO 13:17
PROVIDERS: ATTEND Registered Nurse
DX: O60.03 Preterm labor without delivery, third trimester (principal); O26.833 Pregnancy related renal disease, third trimester; R80.9 Proteinuria, unspecified; F32.9 Major depressive disorder, single episode, unspecified; O99.343 Other mental disorders complicating pregnancy, third trimester
CPT/HCPCS: 59025; 76815; 76819; 76820; G0378; G0463

== ENCOUNTER 2021-07-07 19:20 | Outpatient (CLI) | payer OTHER ==
[~2021-07-07] VITALS: Ht 167.6 cm; Wt 103.1 kg
[2021-07-07 19:41] VITALS: BP 129/74
[2021-07-07 19:52] VITALS: BP 110/77
[2021-07-07] MEDS ORDERED: ONDANSETRON 4MG/2ML VIAL IV PRN (19:55)
[2021-07-07 20:01] VITALS: BP 104/70
[2021-07-07 20:41] LABS: HEMATOCRIT 33.5 % (36.0-47.0); HEMOGLOBIN 10.6 g/dl (12.0-15.5); MEAN CORPUSCULAR HEMOGLOBIN 31.8 pg (27.0-33.0); MEAN CORPUSCULAR HGB CONC 31.6 g/dl (32.0-36.5); MEAN CORPUSCULAR VOLUME 100.6 fl (80.0-96.0); PLATELET COUNT, AUTOMATED 213 10^3/uL (150-450); RED BLOOD COUNT 3.33 10^6/uL (4.00-5.40); WHITE BLOOD COUNT 7.5 10^3/uL (4.0-10.0)
[2021-07-07] MEDS ORDERED: MULTIVITAMIN -ADULT INJECTION 10 ML, THIAMINE INJection 100 MG, FOLIC ACID 1 MG in NS 1... IV ONE (21:00)
[2021-07-07 21:16] LABS: ALBUMIN 2.4 GM/DL (3.2-5.2); ALT/SGPT 13 U/L (12-78); BILIRUBIN,TOTAL 0.3 MG/DL (0.2-1.0); BLOOD UREA NITROGEN 10 MG/DL (7-18); CALCIUM LEVEL 8.6 MG/DL (8.5-10.1); CARBON DIOXIDE LEVEL 24 MEQ/L (21-32); CHLORIDE LEVEL 108 MEQ/L (98-107); CREATININE FOR GFR 0.71 MG/DL (0.55-1.30); GLOMERULAR FILTRATION RATE > 60.0 (>60); GLUCOSE, FASTING 100 MG/DL (70-100); POTASSIUM SERUM 3.9 MEQ/L (3.5-5.1); SODIUM LEVEL 139 MEQ/L (136-145)
[2021-07-07 22:51] VITALS: BP 108/73
[2021-07-07] MEDS ORDERED: TERBUTALINE SULFATE 1 MG/ML VIAL (J3105) SC ONE (23:55)
[2021-07-08] MEDS ORDERED: LR 1,000 ML IV SCH
--- NOTE | 2021-07-08 00:11 | IPNPDOC ---
Text Note Date of Service Item Value Date Time Urine Color GILBERTO 07/07/212018 Urine Appearance CLOUDY H 07/07/212018 Urine pH 6.0 UNITS 07/07/212018 Urine Specific [place] 1.023 07/07/212018 Urine Protein 3+ mg/dL H 07/07/212018 Urine Glucose (UA) NEGATIVE mg/dL 07/07/212018 Urine Ketones NEGATIVE mg/dL 07/07/212018 Urine Blood 1+ H 07/07/212018 Urine Nitrite NEGATIVE 07/07/212018 Urine Bilirubin 1+ H 07/07/212018 Urine Urobilinogen 4.0 mg/dL H 07/07/212018 Urine Leukocyte Esterase TRACE H 07/07/212018 Urine WBC (Auto) 4 /HPF H 07/07/212018 Urine RBC (Auto) 7 /HPF H 07/07/212018 Urine Hyaline Casts (Auto) 3 /LPF 07/07/212018 Urine Bacteria (Auto) NEGATIVE 07/07/212018 Urine Squamous Epithelial Cells 41 /HPF 07/07/212018 Urine Mucus (Auto) SMALL 07/07/212018 Item Value Date Time Sodium Level 139 MEQ/L 07/07/212018 Potassium Level 3.9 MEQ/L 07/07/212018 Chloride Level 108 MEQ/L H 07/07/212018 Carbon Dioxide Level 24 MEQ/L 07/07/212018 Anion Gap 7 MEQ/L L 07/07/212018 Blood Urea Nitrogen 10 MG/DL 07/07/212018 Creatinine 0.71 MG/DL 07/07/212018 Glomerular Filtration Rate > 60.0 07/07/212018 Fasting Glucose 100 MG/DL 07/07/212018 Total Bilirubin 0.3 MG/DL 07/07/21 2019 Calcium Level 8.6 MG/DL 07/07/212018 Aspartate Amino Transf (AST/SGOT) 20 U/L 07/07/21 2019 Alanine Aminotransferase (ALT/SGPT) 13 U/L 07/07/212018 Alkaline Phosphatase 92 U/L 07/07/212018 Total Protein 6.0 GM/DL L 07/07/212018 Albumin 2.4 GM/DL L 07/07/212018 Albumin/Globulin Ratio 0.7 L 07/07/212018 The patient was seen on 07/07/21. NOTE Vital Signs Label Value Date Time Pulse 97 07/07/212 Blood Pressure Assessment 110/77 (88) 07/07/211951 Source Automatic Cuff (NIBP) Blood Pressure Assessment 129/74 (92) 07/07/211940 Source Automatic Cuff (NIBP) Pulse 104 07/07/211940 Vital Signs Label Value Date Time Pulse 97 07/07/211951 Blood Pressure Assessment 110/77 (88) 07/07/211951 Source Automatic Cuff (NIBP) Blood Pressure Assessment 129/74 (92) 07/07/211940 Source Automatic Cuff (NIBP) Pulse 104 07/07/211940 Patient Temperature 97.9 degrees F 07/07/211937 Temperature Source Temporal 07/07/211937 Respiratory Rate 18 bpm 07/07/211937 Item Value Date Time White Blood Count 7.5 10^3/uL 07/07/212018 Red Blood Count 3.33 10^6/uL L 07/07/212018 Hemoglobin 10.6 g/dl L 07/07/212018 Hematocrit 33.5 % L 07/07/212018 Mean Corpuscular Volume 100.6 fl H 07/07/212018 Mean Corpuscular Hemoglobin 31.8 pg 07/07/212018 Mean Corpuscular Hemoglobin Consent 31.6 g/dl L 07/07/212018 Red Cell Distribution Width 12.9 % 07/07/212018 Platelet Count 213 10^3/uL 07/07/21201807/07/2021 26 y.o EDC 08/15/2021 AT 34.3 WEEKS BY EARLY US 01/05/21 9 WEEKS 3 DAYS HISTORY OF BEING SEEN IN TRIAGE FOR PTL < 24 HOURS AGO AND 1 HOUR AFTER DISCHARGE NAUSEA AND VOMITING CALLED TRIAGE LINE 1300 HOURS TOLD TO COME TO LABOR FOR TRIAGE SHOWED UP 2000 HOURS NO EVIDENCE OF VOMITING. HAS C ATEGORY 1 STRIP NO CONTRACTIONS DRY LIPS AND SKIN TURGOR DEMONSTRATES DEHYDRATION. HAS HAD NOTHING TO DRINK X 24 HOURS . REVIEWED PATIENT AFTER HYDRATION STARTED REGULAR CONTRACTIONS Q2-3 MILD NOT FEELING THEM. PLAN TO GIVE TERBUTALINE DO FFN AND REPEAT STEROIDS X 24 HOURS RISK FACTORS 2014 CS AT 40 WEEKS NRFHT 01/2020 TOLAC 38.5 WEEKS DEPRESSION URINARY DIVERTICULUM RIGHT NEPHRECTOMY FREQUENT UTI O: VSS CATEGORY 1 STRIP NO DECELERATIONS ACCELERATIONS NOTED FHR 150'S a: dehydration nausea no vomiting noted PLAN IV HYDRATE WITH BANANA BAG ANTI NAUSEA MEDICATIONS CHEMISTRY Laboratory INQUIRY Report PATIENT: PAPITO DE PAZ LOC: B[facility] DICKERSON U #: [id number] AGE/SX: ROOM: RE07/07/[address]: Trenton Wellington MD : 1995 BED: DIS: STATUS: REG CLI TLOC: SPEC #: [id number] BRANDI: 07/07/21 STATUS: COMP REQ #: [id number] RECD: 07/07/[address]: Trenton Wellington MD SOURCE: NASOPHARYN ENTR: 07/07/[address]: SPDESC: COMP: 07/07/21 ORDERED: RESP PANEL COMMENTS: Source: NASOPHARYNX Procedure Result Site RESPIRATORY PANEL Final NEGATIVE by MULTIPLEXED NUCLEIC ACID PCR SARS-CoV-2 (COVID 19) NEGATIVE - SARS-CoV-2 (COVID19) This respiratory PCR panel detects Influenza A H1, H3 and 2009 H1 viruses, Influenza B virus, Respiratory Syncytial Virus, Human metapneumovirus, Parainfluenza virus 1, 2, 3 and 4, Adenovirus, Rhinovirus/Enterovirus, Coronavirus HKU1, NL63, OC43, 229E and SARS-CoV-2 (COVID 19), Bordetella pertussis, Bordetella parapertussis, Mycoplasma pneumoniae and Chlamydia pneumoniae. -- EXPRESSED UNDERSTANDING OF PLAN OF CARE PATIENT REVIEWED RE NAUSEA THIS HAS RESOLVED NOW PATIENT GIVENT SCOPOLIMINE PATCH ALSO HAD 1 DOSE CELESTONE . RECHECK NO CHANGE CERVIX HIGH 1-2 CM POSTERIOR HIGH ' PLAN GIVE SECOND DOSE OF STEROIDS . DISCHARGED UNDELIVERED VSPatty, I+O VSPatty I+O Vital Signs Date Time Temp Pulse Resp B/P (MAP) Pulse Ox O2 Delivery O2 Flow Rate FiO2 07/07/21 19:52 97 110/77 (88) 07/07/21 19:38 97.9 18 Room Air Trenton Wellington MD Jul 07, 2021 21:19
[2021-07-08 00:12] VITALS: BP 121/79
[2021-07-08] MEDS ORDERED: BETAMETHASONE SOLUSPAN 6MG/ML 5ML VIAL (J0702 PER 3MG) IM SCH (00:15)
[2021-07-08 01:07] VITALS: BP 122/58
[2021-07-08] MEDS ORDERED: BUTORPHANOL 2 MG/ML INJ (J0595) IV ONE (01:50)
[2021-07-08] MEDS ORDERED: PROMETHAZINE INJ 25 MG/ML VIAL (J2550) IV ONE (01:50)
[2021-07-08 02:07] VITALS: BP 111/65
[2021-07-08 03:07] VITALS: BP 110/65
[2021-07-08 04:07] VITALS: BP 105/63
[2021-07-08 05:07] VITALS: BP 100/59
== END 2021-07-08 06:53 | disposition home or self-care (01) ==
LOC: M LDO 19:20
PROVIDERS: ATTEND Obstetrics & Gynecology
DX: O26.893 Other specified pregnancy related conditions, third trimester (principal); O21.9 Vomiting of pregnancy, unspecified; O99.613 Diseases of the digestive system complicating pregnancy, third trimester; Z90.5 Acquired absence of kidney; O34.219 Maternal care for unspecified type scar from previous cesarean delivery; Z3A.34 34 weeks gestation of pregnancy
CPT/HCPCS: 36415; 59025; 80053; 81001; 82731; 85027; 87086; 87798; 96365; 96366; 96372; 96375; G0378; G0463; J0595; J0702; J2405; J3105; J3411

== ENCOUNTER 2021-07-08 14:02 | Outpatient (CLI) | payer OTHER ==
[2021-07-08 14:22] VITALS: BP 113/63
[2021-07-08] MEDS ORDERED: BETAMETHASONE SOLUSPAN 6MG/ML 5ML VIAL (J0702 PER 3MG) IM ONE (14:30)
--- NOTE | 2021-08-04 12:30 | IPNPDOC ---
Text Note Date of Service The patient was seen on 08/04/21. NOTE 07/08/21 PATIENT HAD SECOND BETA INJECTION FOR LUNG MATURITY Trenton Wellington MD Aug 04, 2021 12:30
== END 2021-07-08 14:20 | disposition home or self-care (01) ==
LOC: M LDO 14:02
PROVIDERS: ATTEND Obstetrics & Gynecology
DX: O26.893 Other specified pregnancy related conditions, third trimester (principal); O21.9 Vomiting of pregnancy, unspecified; Z3A.34 34 weeks gestation of pregnancy
CPT/HCPCS: 96372; G0378; G0463; J0702

== ENCOUNTER 2021-07-26 19:48 | Inpatient (IN) | payer OTHER ==
[~2021-07-26] VITALS: Ht 167.6 cm; Wt 105.7 kg
--- OUTSIDE RECORDS SUMMARY | 2021-07-26 19:53 | CCD ---
Author Author [facility] Organization [facility] Address Unknown Phone Unavailable Care Team Providers Care Principal Web Developer Name Role Phone Mastrogiannis, S Petrona Unavailable [phone] Mastrogiannis, S Petrona Unavailable [phone] Mastrogiannis, S Petrona Unavailable [phone] Mastrogiannis, S Petrona Unavailable [phone] Mastrogiannis, S Petrona Unavailable [phone] Mastrogiannis, S Petrona Unavailable [phone] Mastrogiannis, S Petrona Unavailable [phone] Mastrogiannis, S Petrona Unavailable [phone] Mastrogiannis, S Petrona Unavailable [phone] MASTROGIANNIS, S PETRONA Unavailable Unavailable Cm LORENZO JR, MD Unavailable Unavailable Cm LORENZO JR, MD Unavailable Unavailable Cm LORENZO JR, MD Unavailable Unavailable Cm LORENZO JR, MD Unavailable Unavailable mC LORENZO JR, MD Unavailable Unavailable Cm LORENZO JR, MD Unavailable Unavailable Cm LORENZO JR, MD Unavailable Unavailable Cm LORENZO JR, MD Unavailable Unavailable Cm LORENZO JR, MD Unavailable Unavailable Cm LORENZO JR, MD Unavailable Unavailable Cm LORENZO JR, MD Unavailable Unavailable Cm LORENZO JR, MD Unavailable Unavailable Cm LORENZO JR, MD Unavailable Unavailable NOSOVITCH Cm ROSS MD Unavailable Unavailable NOSOVITCH Cm ROSS MD Unavailable Unavailable NOSOVITCH Cm ROSS MD Unavailable Unavailable NOSOVITCH Cm ROSS MD Unavailable Unavailable NOSOVITCH Cm ROSS MD Unavailable Unavailable NOSOVITCH Cm ROSS MD Unavailable Unavailable NOSOVITCH Cm ROSS MD Unavailable Unavailable NOSOVITCH Cm ROSS MD Unavailable Unavailable NOSOVITCH Cm ROSS MD Unavailable Unavailable NOSOVITCH Cm ROSS MD Unavailable Unavailable NOSOVITCH Cm ROSS MD Unavailable Unavailable NOSOVITCH Cm ROSS MD Unavailable Unavailable NOSOVITCH Cm ROSS MD Unavailable Unavailable NOSOVITCH Cm ROSS MD Unavailable Unavailable NOSOVITCH Cm ROSS MD Unavailable Unavailable NOSOVITCH Cm ROSS MD Unavailable Unavailable NOSOVITCH Cm ROSS MD Unavailable Unavailable NOSOVITCH Cm ROSS MD Unavailable Unavailable Nicolasa CRUZ MD Unavailable Unavailable Nicolasa CRUZ MD Unavailable Unavailable Nicolasa CRUZ MD Unavailable Unavailable Nicolasa CRUZ MD Unavailable Unavailable Nicolasa CRUZ MD Unavailable Unavailable Nicolasa CRUZ MD Unavailable Unavailable Nicolasa CRUZ MD Unavailable Unavailable Nicolasa CRUZ MD Unavailable Unavailable Nicolasa CRUZ MD Unavailable Unavailable Nicolasa CRUZ MD Unavailable Unavailable Nicolasa CRUZ MD Unavailable Unavailable Nicolasa CRUZ MD Unavailable Unavailable Nicolasa CRUZ MD Unavailable Unavailable Nicolasa CRUZ MD Unavailable Unavailable Nicolasa CRUZ MD Unavailable Unavailable Nicolasa CRUZ MD Unavailable Unavailable Nicolasa CRUZ MD Unavailable Unavailable Nicolasa CRUZ MD Unavailable Unavailable Nicolasa CRUZ MD Unavailable Unavailable Nicolasa CRUZ MD Unavailable Unavailable Nicolasa CRUZ MD Unavailable Unavailable Nicolasa CRUZ MD Unavailable Unavailable Nicolasa CRUZ MD Unavailable Unavailable Nicolasa CRUZ MD Unavailable Unavailable Nicolasa CRUZ MD Unavailable Unavailable Nicolasa CRUZ MD Unavailable Unavailable Nicolasa CRUZ MD Unavailable Unavailable Nicolasa CRUZ MD Unavailable Unavailable Nicolasa CRUZ MD Unavailable Unavailable Nicolasa CRUZ MD Unavailable Unavailable Nicolasa CRUZ MD Unavailable Unavailable Nicolasa CRUZ MD Unavailable Unavailable Nicolasa CRUZ MD Unavailable Unavailable Nciolasa CRUZ MD Unavailable Unavailable Nicolasa CRUZ MD Unavailable Unavailable Nicolasa CRUZ MD Unavailable Unavailable Nicolasa CRUZ MD Unavailable Unavailable Nicolasa CRUZ MD Unavailable Unavailable FOLK, J CRISTY MD Unavailable Unavailable FOLK, J CRISTY MD Unavailable Unavailable FOLK, J CRISTY MD Unavailable Unavailable FOLK, J CRISTY MD Unavailable Unavailable FOLK, J CRISTY MD Unavailable Unavailable FOLK, J CRISTY MD Unavailable Unavailable FOLK, J CRISTY MD Unavailable Unavailable FOLK, J CRISTY MD Unavailable Unavailable FOLK, J CRISTY MD Unavailable Unavailable FOLK, J CRISTY MD Unavailable Unavailable FOLK, J CRISTY MD Unavailable Unavailable FOLK, J CRISTY MD Unavailable Unavailable FOLK, J CRISTY MD Unavailable Unavailable FOLK, J CRISTY MD Unavailable Unavailable FOLK, J CRISTY MD Unavailable Unavailable FOLK, J CRISTY MD Unavailable Unavailable FOLK, J CRISTY MD Unavailable Unavailable FOLK, J CRISTY MD Unavailable Unavailable FOLK, J CRISTY MD Unavailable Unavailable FOLK, J CRISTY MD Unavailable Unavailable Re-disclosure Warning The records that you are about to access may contain information from federally-assisted alcohol or drug abuse programs. If such information is present, then the following federally mandated warning applies: This information has been disclosed to you from records protected by federal confidentiality rules (42 CFR part 2). The federal rules prohibit you from making any further disclosure of this information unless further disclosure is expressly permitted by the written consent of the person to whom it pertains or as otherwise permitted by 42 CFR part 2. A general authorization for the release of medical or other information is NOT sufficient for this purpose. The Federal rules restrict any use of the information to criminally investigate or prosecute any alcohol or drug abuse patient.The records that you are about to access may contain highly sensitive health information, the redisclosure of which is protected by Article 27-F of the [facility] Public Health law. If you continue you may have access to information: Regarding HIV / AIDS; Provided by facilities licensed or operated by the [facility] Office of Mental Health; or Provided by the [facility] Office for People With Developmental Disabilities. If such information is present, then the following [facility] mandated warning applies: This information has been disclosed to you from confidential records which are protected by state law. State law prohibits you from making any further disclosure of this information without the specific written consent of the person to whom it pertains, or as otherwise permitted by law. Any unauthorized further disclosure in violation of state law may result in a fine or usp sentence or both. A general authorization for the release of medical or other information is NOT sufficient authorization for further disc losure. Encounters Encounter Providers Location Date Indications Data Source(s ) Outpatient Attender: Petrona DowneyrogiannisAttender: ACTINA AVILA MASTROGIANNIS 07/05/2021 12:00:[address] [facility] Outpatient Attender: Petrona Morgan annisAttender: PETRONA QUILESReferrer: CRISTY LORENZO JR [id number] 06/16/2021 12 :00:00 AM EDT - 06/16/2021 10:49:41 AM EDT [facility] In[facility] Attender: CRISTY CRUZ MD 06/02/2021 12:58:38 PM E DT [facility] Inpatient Attender: CRISTY CRUZ MDAdmitter: CRISTY CRUZ MD 06/02/2021 11:08:00 AM EDT - 06/08/2021 04:10:00 PM EDT [place] SEVERE FEATURES DD [id number] [facility] PREECLAMPSIA WITH SEVERE FEATURES DD [phone] Patient discharged. Inpatient Attender: CRISTY CRUZ MD 06/02/2021 11:08:00 AM E DT [facility] Immunizations Vaccine Date Status Description Data Source(s) COVID-19 VACCINE Moderna 11/04/2020 12:00:00 AM EST completed [facility] Vaccine Series Complete: YESThis Data wa s Submitted to [facility] Via [employer]. COVID-19 VACCINE Moderna 09/24/2020 12:00:00 AM EST completed [facility] Vaccine Series Complete: NOThis Data was Submitted to [facility] Via [employer]. Medications No Information Insurance Providers Payer name Policy type / Coverage type Policy ID Covered alliance party ID Covered alliance party's relationship to pavon Policy Pavon Plan Information U [id number] [facility] [id number] [facility] [id number] [facility] [id number] U [id number] [facility] [id number] HEA [id number] SELF PAY ONLY SELF PAY Problems, Conditions, and Diagnoses No Information Surgeries/Procedures No Information Results ID Date Data Source [id number] 07/07/2021 08:24:00 PM EST [facility] Name Value Range Interpretation Code Description Data Thania rce(s) Supporting Document(s) SARS-CoV-2 (COVID 19) NEGATIVE - SARS-CoV-2 (COVID19) [facility] This lab was ordered by [facility] a nd reported by [facility]. ID Date Data Source [id number] 06/26/2021 05:36:20 PM EDT [facility] Name Value Range Interpretation Code Description Data Thania rce(s) Supporting Document(s) Progress Note [facility] PBLTIj4nFkOGIjPm80/ALCucYWGzq1KpIFbzNYc2RBbuQVZbO8SiYMI7tQ9bKNT8GTfYWvXySnCjBTPk lbm [file] UQD8A1U6BTP6ZVT1JuVwXY6VFx6BZpU7LWO8oHYbWx2HMtM6LWZXNfAkUJ8ZCPi= ID Date Data Source [id number] 06/26/2021 05:36:15 PM EDT [facility] Name Value Range Interpretation Code Description Data Thania rce(s) Supporting Document(s) Progress Note [facility] GMTFKm2lTcQSHbOh99/KQKwbUYAfe4NtXGhpMNg5WZisQXOnB8HrUWQ4iG6wQTB3SFbEXmZmIbLvDOLi lbm [file] 3nRtAK+gIVhV6DP5N7Qic975MkJ8yBDyuXQ+Elías+CBeXMfIH+O61BvsBEZvwDdsoXwsNk1UQQwyWNtSv [file] AgICAgICAgICAgICAgICAgICAgICAgICAgICAgICAg ICAgICAgICAgICAgICAgICAgICAgICAgICAgDQogICAgICAgICAgICAgICAgICAgICAgICAgICAgICAg ICAgICAgICAgICAgICAgICAgICAgICAgICAgICAgICAgICAgICAgICAgICAgICAgICAgICAgICAgICAg ICAgICAgICAgDQogICAgICAgICAgICAgICAgICAgIC AgICAgICAgICAgICAgICAgICAgICAgICAgICAgICAgICAgICAgICAgICAgICAgICAgICAgICAgICAgIC AgICAgICAgICAgICAgICAgICAgDQogICAgICAgICAgICAgICAgICAgICAgICAgICAgICAgICAgICAgIC AgICAgICAgICAgICAgICAgICAgICAgICAgICAgICAg ICAgICAgICAgICAgICAgICAgICAgICAgICAgICAgDQogICAgICAgICAgICAgICAgICAgICAgICAgICAg ICAgICAgICAgICAgICAgICAgICAgICAgICAgICAgICAgICAgICAgICAgICAgICAgICAgICAgICAgICAg ICAgICAgICAgICAgDQogICAgICAgICAgICAgICAgIC AgICAgICAgICAgICAgICAgICAgICAgICAgICAgICAgICAgICAgICAgICAgICAgICAgICAgICAgICAgIC AgICAgICAgICAgICAgICAgICAgICAgDQogICAgICAgICAgICAgICAgICAgICAgICAgICAgICAgICAgIC AgICAgICAgICAgICAgICAgICAgICAgICAgICAgICAg ICAgICAgICAgICAgICAgICAgICAgICAgICAgICAgICAgDQogICAgICAgICAgICAgICAgICAgICAgICAg ICAgICAgICAgICAgICAgICAgICAgICAgICAgICAgICAgICAgICAgICAgICAgICAgICAgICAgICAgICAg ICAgICAgICAgICAgICAgDQogICAgICAgICAgICAgIC AgICAgICAgICAgICAgICAgICAgICAgICAgICAgICAgICAgICAgICAgICAgICAgICAgICAgICAgICAgIC AgICAgICAgICAgICAgICAgICAgICAgICAgDQogICAgICAgICAgICAgICAgICAgICAgICAgICAgICAgIC AgICAgICAgICAgICAgICAgICAgICAgICAgICAgICAg KEBiUXCxDZXgRKTfRJUlWVAxRFGcTVCaESNjLCBlVFOoGSUoAEw5R9uvJIPePBZkSS0mPLu4Ly3+DQoN CtEtVCX4ddFntH3NMN0yq9QvDDfyBXFfu9FaAOr5RN2PYPZzMOvdRW2EWToiyq4VLAWyDHMtnKJOe5ko CnNwKWR3BVLeCiinLR1DEQPoH4hpqrLuUPQaHGPCYJ eaUTVZNYoaWCZELH6AKbDbT0UaaG28VSTIDr8+ATojvgGiQohMPqC9QVYss3FkCQn6YM6DSZYtEvszt8 NeWbFsHEHLRVxrUL9HOLN7GTOxOPJaOv1USRDpL134pyEuBY3HNg6WTlAsDI9uqy2FEeVdFGSvWucTTd r7GVxcLN2VrUJdKAgOqx8evkQgktZRx0EhvgAglMPP yUJru0usbxIKONFlxiNmO25uVR4KBQJ5CCXnHcRaSpHaTpGqQUo1NdSqXY7pINvyPX3NSCQ6IWvfDAAp BLFiN2zEMfRvTEQ7DfCjqGiaTA4UQhGsM7MsdrNypJXgOTNnGWKQQm7+AFzmqaFtCfpILaQpHJMgt4Yk YLo4WI8ZXHDkMSnpGO7PJTRotS7uPPijXS2JKyZwVt YyIBBEXnOzN12jgEFbZVi8A4YbVfKnENBdYsokHMCkXZjwFgCcPJMsIlRiTBpmCT0+ID4+DJaxCW2CXR xdzvBeHYBjGe8NCYEnLAUdPP8vMEEnXEQcO2K3uCzkZURNBlFaW5dehvhsUL8sUFOyG279fZfubzUqNQ S6OTCsBf5DNGGdMTM3HILxtXZmGktsRJQVAFigAW9X bEDsPEV9tQ8bZSlrETMpCVKlU4nRRmUruIzhYU56lDyrdtCkeMJtLCe+Xj2DQT0gr8DmESg0ydJiNEgz TYZaYIobBGJwBRSeDFFqEFU7IZG0IGIFHaTuPOAqXOYeCOsrBUJnWSAoml7FHEKsUBY0Vrq2QIGoQWIz NYExZJttIOUsRKZ8UmMvHZNoBSDlYE5SYnHqTIZrJU UkIMsgWUKhKWEggw6FTADwMDYoWwB7NFFkDDCeHXPeDEhfWAHbCIBjHfgkLYDqWZDnBB3STgAfWUDuOF U9HXPhDEUvGEAcbo6SAUDeZWGuCeEtZSFwJOMwHUBuUVglAOMeZJL9WAI7MQZjJZNtER1FLdChKVYpPU gqNlzmJHHrUNBnks5ITFKqNTUjIGLjDYPrJQDhKXIt PDblMTOpPEBtYlU9ORDuLTSkNA1XIyQyBLGwSMN8IBnqPOJmEZAwjt7JSBDpUSGxJHO2DHUtKUGfZIQe BMmhGRVxOAPlBOblDINqBOEjBQ4VHiLyVXEoFRE1CYpdKOTjOMWojm6FPGHuBGSxTAKwRPLnFWQuMEUg XKklSQDyWRC0JQn2HJMqKBVmUE9KQjKjSLZxIpjpID khIUSyJAShec4LANKrILN4UVA1VaFgPDUtYYEbGIqdKVQeERFyNcEwKFTaJMIlCS1MTxMoRTJoGAHgHF LbYIXsMUGpov8FVVPvQHI6QPL6TlFgZIKzFQRvUXahQJJjKOUsZZQ5RWPcKPWbRP6ZAaLdTTJlNID5KK ZnXUJuNCQnjs0YVLYmLHY8KnO7HWWuJJAnBTQzXEux TEZoEOWmRAM7TJAbBYVyQG5PNaJwUKZfLYSfOXZlNARsUUKpxw9ZZGXdOZR4UBdcOYBtJDEoKACqWMeo BKTvETR3HJVpBWDeUXGxZD0LNwPmXXBtAJG8YIApXUNoFGNrlo8UsYAflThyph9QZAfLWd4JiHhfXYYh JGmcZh2yqVCnPVRoZBXSJr3RjkFmEVIdKFDCBRclND CuJUH7UOGyPTChTIH8KOK8VoTfUZi9PcozEGUzMSD2GEJhAcM9RjczDDFeCRBgDNJ1VGpuIYE7GequVV I1UGK9VhS0FIM+WB6fCTx+Xa2Sg9HlijO7nyOwWUn6BISbGP6FZGFPW7NXDf== ID Date Data Source [id number] 06/08/2021 11:02:00 AM EDT [facility] DATE OF EXAM: 06/08/2021XAM: Ultrasound obstetrical. HISTORY: Preeclampsia COMPARISON: No relevant prior studies are available for comparison. FINDINGS: Single intrauterine gestation is identified in transverse breech presentation. Cardiac activity and movement are observed. heart rate is 140 BPM. There is anterior position , grade 1 placenta. No placenta previa. Normal appearing amount of amniotic fluid. The LAN is 15.5 cm. 50th percentile is 14.5 cm. The cervix measures 5.2 cm. There is limited visualization of the anatomy. There is a four-chamber heart. The stomach, kidneys, and urinary bladder are visualized. MEASUREMENTS: BPD 7.7 cm, CORRESPONDS to 31 weeks 0 days. Head circumference 29.1 cm, CORRESPONDS to 32 weeks 1 day. Abdominal circumference 28.8 cm, CORRESPONDS to 32 weeks 5 days. Femur length 6.0 cm , CORRESPONDS to 31 weeks 2 days. COMPOSITE ULTRASOUND measures 31 weeks 6 days. Predicted gestational age from LMP is 30 weeks 6 days. Cephalic i ndex and other measurement ratios are within normal limits. Estimated weight 1899 + / - 285 gm. The fetus scored 2 for breathing movements, 2 for gross body movements, 2 for tone, and 2 for amniotic fluid volume. Total biophysical profile score is 8/8. The cord Doppler S/D ratio equals 2.63 (normal mean = 2.27 , upper limits of normal = 2.94 ) Evaluation was performed over a period of 6 minutes. IMPRESSION: Single live intrauterine gestation in transverse breech presentation with U/S measured gestational age 31 weeks 6 days. No abnormalities identified, but with limited views of anatomy. The total biophysical profile score is 8/8. The cord Doppler S/D ratio is 2.63. Professional interpretation performed at [facility] .End of diagnostic report for accession: [id number] Interpreted: Lionel Dawson MDTranscribed: 06/08/2021 10:56 AMSigned: 06/08/2021 11:02 AM Lionel Dawson MD [facility] # [id number] [facility] # [id number] Name Value Range Interpretation Code Description Data [facility]ania [facility](s) Supporting Document(s) ID Date Data Source [id number] 06/08/2021 11:02:00 AM EDT [facility] [place] DATE OF EXAM: 06/08/2021XAM: Ultrasound obstetrical. HISTORY: Preeclampsia COMPARISON: No relevant prior studies are available for comparison. FINDINGS: Single intrauterine gestation is identified in transverse breech presentation. Cardiac activity and movement are observed. heart rate is 140 BPM. There is anterior position , grade 1 placenta. No placenta previa. Normal appearing amount of amniotic fluid. The LAN is 15.5 cm. 50th percentile is 14.5 cm. The cervix measures 5.2 cm. There is limited visualization of the anatomy. There is a four-chamber heart. The stomach, kidneys, and urinary bladder are visualized. MEASUREMENTS: BPD 7.7 cm, CORRESPONDS to 31 weeks 0 days. Head circumference 29.1 cm, CORRESPONDS to 32 weeks 1 day. Abdominal circumference 28.8 cm, CORRESPONDS to 32 weeks 5 days. Femur length 6.0 cm , CORRESPONDS to 31 weeks 2 days. COMPOSITE ULTRASOUND measures 31 weeks 6 days. Predicted gestational age from LMP is 30 weeks 6 days. Cephalic i ndex and other measurement ratios are within normal limits. Estimated weight 1899 + / - 285 gm. The fetus scored 2 for breathing movements, 2 for gross body movements, 2 for tone, and 2 for amniotic fluid volume. Total biophysical profile score is 8/8. The cord Doppler S/D ratio equals 2.63 (normal mean = 2.27 , upper limits of normal = 2.94 ) Evaluation was performed over a period of 6 minutes. IMPRESSION: Single live intrauterine gestation in transverse breech presentation with U/S measured gestational age 31 weeks 6 days. No abnormalities identified, but with limited views of anatomy. The total biophysical profile score is 8/8. The cord Doppler S/D ratio is 2.63. Professional interpretation performed at [facility] .End of diagnostic report for accession: [id number] Interpreted: Lionel Dawson MDTranscribed: 06/08/2021 10:56 AMSigned: 06/08/2021 11:02 AM Lionel Dawson MD [facility] # [id number] BILL # [id number] Name Value Range Interpretation Code Description Data Thania e(s) Supporting Document(s) ID Date Data Source [id number] 06/08/2021 11:02:00 AM EDT [facility] DATE OF EXAM: 06/08/2021XAM: Ultrasound obstetrical. HISTORY: Preeclampsia COMPARISON: No relevant prior studies are available for comparison. FINDINGS: Single intrauterine gestation is identified in transverse breech presentation. Cardiac activity and movement are observed. heart rate is 140 BPM. There is anterior position , grade 1 placenta. No placenta previa. Normal appearing amount of amniotic fluid. The LAN is 15.5 cm. 50th percentile is 14.5 cm. The cervix measures 5.2 cm. There is limited visualization of the anatomy. There is a four-chamber heart. The stomach, kidneys, and urinary bladder are visualized. MEASUREMENTS: BPD 7.7 cm, CORRESPONDS to 31 weeks 0 days. Head circumference 29.1 cm, CORRESPONDS to 32 weeks 1 day. Abdominal circumference 28.8 cm, CORRESPONDS to 32 weeks 5 days. Femur length 6.0 cm , CORRESPONDS to 31 weeks 2 days. COMPOSITE ULTRASOUND measures 31 weeks 6 days. Predicted gestational age from LMP is 30 weeks 6 days. Cephalic i ndex and other measurement ratios are within normal limits. Estimated weight 1899 + / - 285 gm. The fetus scored 2 for breathing movements, 2 for gross body movements, 2 for tone, and 2 for amniotic fluid volume. Total biophysical profile score is 8/8. The cord Doppler S/D ratio equals 2.63 (normal mean = 2.27 , upper limits of normal = 2.94 ) Evaluation was performed over a period of 6 minutes. IMPRESSION: Single live intrauterine gestation in transverse breech presentation with U/S measured gestational age 31 weeks 6 days. No abnormalities identified, but with limited views of anatomy. The total biophysical profile score is 8/8. The cord Doppler S/D ratio is 2.63. Professional interpretation performed at [facility] .End of diagnostic report for accession: [id number] Interpreted: Lionel Dawson MDTranscribed: 06/08/2021 10:56 AMSigned: 06/08/2021 11:02 AM Lionel Dawson MD [facility] # [id number] BILL # [id number] Name Value Range Interpretation Code Description Data Thania rce(s) Supporting Document(s) ID Date Data Source [id number] 06/08/2021 06:53:50 AM EDT [facility] Name Value Range Interpretation Code Description Data Thania rce(s) Supporting Document(s) URIC ACID 4.8 mg/dL (2.6-6.0) [facility] ID Date Data Source [id number] 06/08/2021 06:53:50 AM EDT [facility] Name Value Range Interpretation Code Description Data Thania rce(s) Supporting Document(s) LDH 127 U/L (84-246) [facility] ID Date Data Source [id number] 06/08/2021 06:53:50 AM EDT [facility] Name Value Range Interpretation Code Description Data Thania rce(s) Supporting Document(s) SODIUM 141 mmol/L (136-145) [facility] POTASSIUM 4.4 mmol/L (3.6-5.2) [facility] CHLORIDE 109 mmol/L (100-108) H [facility] CO2 25 mmol/L (22-31) [facility] ANION GAP 7 mmol/L (7-16) [facility] UREA NITROGEN 8 mg/dL (7-24) [facility] CREATININE 0.67 mg/dL (0.60-1.00) [facility] BUN/CREAT RATIO 11.9 RATIO (10.0-20.0) [facility] GLUCOSE 87 mg/dL (70-99) [facility] CALCIUM 8.6 mg/dL (8.4-10.2) [facility] TOTAL PROTEIN 5.8 g/dL (6.4-8.2) L [facility] ALBUMIN 2.6 g/dL (3.5-4.6) L [facility] GLOBULIN 3.2 g/dL (2.7-4.3) [facility] ALB/GLOB RATIO 0.8 RATIO [facility] ALKALINE PHOSPHATASE 80 U/L (45-117) [facility] BILIRUBIN,TOTAL 0.3 mg/dL (0.0-1.0) [facility] PLEASE NOTE:Total bilirubin results may be falselyelevated in patients taking Eltrombopag. AST (SGOT) 7 U/L (11-39) L [facility] ALT (SGPT) 15 U/L (12-78) [facility] GFR >60 ml/min/1.73m2 (>59) [facility] GFR ( AMER) >60 ml/min/1.73m2 (>59) [facility] GFR INTERPRETATION [facility] --NORMAL KIDNEY FUNCTION OR MILD DISEASE - GFR >OR= 60CHRONIC KIDNEY DISEASE - GFR 15 - 59RENAL FAILURE - GFR <15 Est. GFR calculation based on the MDRDstudy equation, which assumes a steadystate for creatinine. Est. GFR should notbe used for medication dosing. ID Date Data Source [id number] 06/08/2021 06:13:08 AM EDT [facility] Name Value Range Interpretation Code Description Data Thania rce(s) Supporting Document(s) WBC 10.9 10*3/uL (4.1-11.0) [facility] RBC 3.40 10*6/uL (4.00-5.40) L [facility] HGB 11.0 g/dL (12.0-16.0) L [facility] HCT 33.4 % (36.0-47.0) L [facility] MCV 98.5 fL (80.0-95.0) H [facility] MCH 32.4 pg (27.0-32.0) H [facility] MCHC 32.9 g/dL (32.0-36.0) [facility] RDW 13.6 % (10.5-14.5) [facility] PLT 224 10*3/uL (150-450) [facility] MPV 8.2 fL (7.1-10.7) [facility] ID Date Data Source [id number] 06/09/2021 08:10:51 AM EDT [facility] SPEC EXP DATE 06/10/2021ONV ERT COMMENT TWO UNIT XM ADDED DUE TO PRESENCE OR HISTORY OF ATYPICAL ANTIBODIES.PATIENT ABO/Rh O POSITIVEANTIBODY SCREEN POSITIVETESTING SITE PERFORMED AT [address] [place], [place] [address]OOD BANK COMMENT BLOOD TYPE CONFIRMED.BLOOD BANK COMMENT HISTORY OF ANTI CUNIT NUMBER [id number] COMPONENT TYPE LEUKOPOOR RED CELLS (PT B)UNIT DIVISION 00STATUS OF UNIT REL FROM ALLOCTRANSFUSION STATUS OK TO TRANSFUSECROSSMATCH RESULT COMPATIBLELEVEL 1 PHENOTYPING BILLED FOR SERVICES PERFORMEDUNIT NUMBER [id number] COMPONENT TYPE LEUKOPOOR RED CELLS (PT B)UNIT DIVISION 00STATUS OF UNIT REL FROM ALLOCTRANSFUSION STATUS OK TO TRANSFUSECROSSMATCH RESULT COMPATIBLELEVEL 1 PHENOTYPING BILLED FOR SERVICES PERFORMED Name Value Range Interpretation Code Description Data Thania rce(s) Supporting Document(s) TYPE AND SCREEN [facility] PATIENT ABO/Rh O POSITIVE ID Date Data Source [id number] 06/07/2021 07:11:22 AM EDT [facility] Name Value Range Interpretation Code Description Data Thania rce(s) Supporting Document(s) URIC ACID 4.2 mg/dL (2.6-6.0) [facility] ID Date Data Source [id number] 06/07/2021 07:11:22 AM EDT [facility] Name Value Range Interpretation Code Description Data Thania rce(s) Supporting Document(s) LDH 122 U/L (84-246) [facility] ID Date Data Source [id number] 06/07/2021 07:11:22 AM EDT [facility] Name Value Range Interpretation Code Description Data Thania rce(s) Supporting Document(s) SODIUM 140 mmol/L (136-145) [facility] POTASSIUM 4.0 mmol/L (3.6-5.2) [facility] CHLORIDE 110 mmol/L (100-108) H [facility] CO2 22 mmol/L (22-31) [facility] ANION GAP 8 mmol/L (7-16) [facility] UREA NITROGEN 8 mg/dL (7-24) [facility] CREATININE 0.63 mg/dL (0.60-1.00) [facility] BUN/CREAT RATIO 12.7 RATIO (10.0-20.0) [facility] GLUCOSE 89 mg/dL (70-99) [facility] CALCIUM 8.5 mg/dL (8.4-10.2) [facility] TOTAL PROTEIN 5.6 g/dL (6.4-8.2) L [facility] ALBUMIN 2.3 g/dL (3.5-4.6) L [facility] GLOBULIN 3.3 g/dL (2.7-4.3) [facility] ALB/GLOB RATIO 0.7 RATIO [facility] ALKALINE PHOSPHATASE 68 U/L (45-117) [facility] BILIRUBIN,TOTAL 0.3 mg/dL (0.0-1.0) [facility] PLEASE NOTE:Total bilirubin results may be falselyelevated in patients taking Eltrombopag. AST (SGOT) 6 U/L (11-39) L [facility] ALT (SGPT) 12 U/L (12-78) [facility] GFR >60 ml/min/1.73m2 (>59) [facility] GFR ( AMER) >60 ml/min/1.73m2 (>59) [facility] GFR INTERPRETATION [facility] --NORMAL KIDNEY FUNCTION OR MILD DISEASE - GFR >OR= 60CHRONIC KIDNEY DISEASE - GFR 15 - 59RENAL FAILURE - GFR <15 Est. GFR calculation based on the MDRDstudy equation, which assumes a steadystate for creatinine. Est. GFR should notbe used for medication dosing. ID Date Data Source [id number] 06/07/2021 06:42:45 AM EDT [facility] Name Value Range Interpretation Code Description Data Thania rce(s) Supporting Document(s) WBC 9.9 10*3/uL (4.1-11.0) [facility] RBC 3.18 10*6/uL (4.00-5.40) L [facility] HGB 10.5 g/dL (12.0-16.0) L [facility] HCT 31.1 % (36.0-47.0) L [facility] MCV 97.6 fL (80.0-95.0) H [facility] MCH 33.0 pg (27.0-32.0) H [facility] MCHC 33.8 g/dL (32.0-36.0) [facility] RDW 12.9 % (10.5-14.5) [facility] PLT 216 10*3/uL (150-450) [facility] MPV 8.4 fL (7.1-10.7) [facility] ID Date Data Source [id number] 06/06/2021 01:29:28 PM EDT [facility] Name Value Range Interpretation Code Description Data Thania rce(s) Supporting Document(s) PROTEIN,URINE 41 mg/dL [facility] URINE PROTEIN MAY BE FALSELY ELEVATEDDUR ING TREATMENT WITH AMINOGLYCOSIDESDUE TO METHOD INTERFERENCE. PROTEIN/24HR 636 mg/(24.h) (0-150) H [facility] ID Date Data Source [id number] 06/06/2021 01:00:31 PM EDT [facility] Name Value Range Interpretation Code Description Data Thania rce(s) Supporting Document(s) HOURS OF COLLECTION 24 h [facility] URINE VOLUME 1550 mL (800-1800) [facility] ID Date Data Source [id number] 06/05/2021 10:27:20 AM EDT [facility] Name Value Range Interpretation Code Description Data Thania rce(s) Supporting Document(s) URIC ACID 4.6 mg/dL (2.6-6.0) [facility] ID Date Data Source [id number] 06/05/2021 10:27:20 AM EDT [facility] Name Value Range Interpretation Code Description Data Thania rce(s) Supporting Document(s) LDH 139 U/L (84-246) [facility] ID Data Source [id number] 06/05/2021 10:27:20 AM EDT [facility] Name Value Range Interpretation Code Description Data Thania rce(s) Supporting Document(s) SODIUM 141 mmol/L (136-145) [facility] POTASSIUM 3.8 mmol/L (3.6-5.2) [facility] CHLORIDE 110 mmol/L (100-108) H [facility] CO2 25 mmol/L (22-31) [facility] ANION GAP 6 mmol/L (7-16) L [facility] UREA NITROGEN 8 mg/dL (7-24) [facility] CREATININE 0.55 mg/dL (0.60-1.00) L [facility] BUN/CREAT RATIO 14.5 RATIO (10.0-20.0) [facility] GLUCOSE 70 mg/dL (70-99) [facility] CALCIUM 7.9 mg/dL (8.4-10.2) L [facility] TOTAL PROTEIN 5.5 g/dL (6.4-8.2) L [facility] ALBUMIN 2.5 g/dL (3.5-4.6) L [facility] GLOBULIN 3.0 g/dL (2.7-4.3) [facility] ALB/GLOB RATIO 0.8 RATIO [facility] ALKALINE PHOSPHATASE 63 U/L (45-117) [facility] BILIRUBIN,TOTAL 0.5 mg/dL (0.0-1.0) [facility] PLEASE NOTE:Total bilirubin results may be falselyelevated in patients taking Eltrombopag. AST (SGOT) <5 U/L (11-39) L [facility] ALT (SGPT) 11 U/L (12-78) L [facility] GFR >60 ml/min/1.73m2 (>59) [facility] GFR ( AMER) >60 ml/min/1.73m2 (>59) [facility] GFR INTERPRETATION [facility] --NORMAL KIDNEY FUNCTION OR MILD DISEASE - GFR >OR= 60CHRONIC KIDNEY DISEASE - GFR 15 - 59RENAL FAILURE - GFR <15 Est. GFR calculation based on the MDRDstudy equation, which assumes a steadystate for creatinine. Est. GFR should notbe used for medication dosing. ID Date Data Source [id number] 06/05/2021 10:00:06 AM EDT [facility] Name Value Range Interpretation Code Description Data Thania rce(s) Supporting Document(s) WBC 8.2 10*3/uL (4.1-11.0) [facility] [place] RBC 3.17 10*6/uL (4.00-5.40) L [facility] HGB 10.2 g/dL (12.0-16.0) L [facility] HCT 31.0 % (36.0-47.0) L [facility] MCV 98.0 fL (80.0-95.0) H [facility] MCH 32.2 pg (27.0-32.0) H [facility] MCHC 32.9 g/dL (32.0-36.0) [facility] RDW 13.2 % (10.5-14.5) [facility] PLT 209 10*3/uL (150-450) [facility] MPV 8.4 fL (7.1-10.7) [facility] ID Date Data Source [id number] 06/06/2021 02:15:33 PM EDT [facility] SPECIMEN DESCRIPTION VAGINAL SPEC IMENCULTURE RESULTS NEGATIVE: BETA HEMOLYTIC STREPTOCOCCI GROUP B B Y PCRREPORT STATUS FINAL 06/06/2021 Name Value Range Interpretation Code Description Data Thania rce(s) Supporting Document(s) ID Date Data Source [id number] 06/04/2021 06:34:23 AM EDT [facility] Name Value Range Interpretation Code Description Data Thania rce(s) Supporting Document(s) LDH 138 U/L (84-246) [facility] ID Date Data Source [id number] 06/04/2021 06:34:23 AM EDT [facility] Name Value Range Interpretation Code Description Data Thania rce(s) Supporting Document(s) URIC ACID 5.0 mg/dL (2.6-6.0) [facility] ID Date Data Source [id number] 06/04/2021 06:34:23 AM EDT [facility] Name Value Range Interpretation Code Description Data Thania rce(s) Supporting Document(s) SODIUM 142 mmol/L (136-145) [facility] POTASSIUM 4.0 mmol/L (3.6-5.2) [facility] CHLORIDE 111 mmol/L (100-108) H [facility] CO2 25 mmol/L (22-31) [facility] ANION GAP 6 mmol/L (7-16) L [facility] UREA NITROGEN 8 mg/dL (7-24) [facility] CREATININE 0.63 mg/dL (0.60-1.00) [facility] BUN/CREAT RATIO 12.7 RATIO (10.0-20.0) [facility] GLUCOSE 87 mg/dL (70-99) [facility] CALCIUM 8.2 mg/dL (8.4-10.2) L [facility] TOTAL PROTEIN 5.5 g/dL (6.4-8.2) L [facility] ALBUMIN 2.3 g/dL (3.5-4.6) L [facility] GLOBULIN 3.2 g/dL (2.7-4.3) [facility] ALB/GLOB RATIO 0.7 RATIO [facility] ALKALINE PHOSPHATASE 64 U/L (45-117) [facility] BILIRUBIN,TOTAL 0.4 mg/dL (0.0-1.0) [facility] PLEASE NOTE:Total bilirubin results may be falselyelevated in patients taking Eltrombopag. AST (SGOT) 10 U/L (11-39) L [facility] ALT (SGPT) 13 U/L (12-78) [facility] GFR >60 ml/min/1.73m2 (>59) [facility] GFR ( AMER) >60 ml/min/1.73m2 (>59) [facility] GFR INTERPRETATION [facility] --NORMAL KIDNEY FUNCTION OR MILD DISEASE - GFR >OR= 60CHRONIC KIDNEY DISEASE - GFR 15 - 59RENAL FAILURE - GFR <15 Est. GFR calculation based on the MDRDstudy equation, which assumes a steadystate for creatinine. Est. GFR should notbe used for medication dosing. ID Date Data Source [id number] 06/04/2021 06:13:33 AM EDT [facility] Name Value Range Interpretation Code Description Data Thania rce(s) Supporting Document(s) WBC 8.4 10*3/uL (4.1-11.0) [facility] RBC 2.99 10*6/uL (4.00-5.40) L [facility] HGB 9.9 g/dL (12.0-16.0) L [facility] HCT 29.6 % (36.0-47.0) L [facility] MCV 98.9 fL (80.0-95.0) H [facility] MCH 33.0 pg (27.0-32.0) H [facility] MCHC 33.4 g/dL (32.0-36.0) [facility] RDW 13.3 % (10.5-14.5) [facility] PLT 185 10*3/uL (150-450) [facility] MPV 8.1 fL (7.1-10.7) [facility] ID Date Data Source [id number] 06/03/2021 04:24:00 PM EDT [facility] DATE OF EXAM: 06/03/2021Ultrasound: Joyce l. INDICATION: Chronic posterior with . COMPARISON: None FINDINGS: The right kidney is surgically absent. The left kidney measures 14.0 cm. Contour and echo pattern of left kidney normal.No cystic or solid mass. No stones are identified. There is no hydronephrosis. Urinary bladder contains a small amount of debris. Ureteral jets were visualized bilaterally.Aorta/IVC were unremarkable. IMPRESSION: Small amount of debris noted in the bladder. Correlation should be made with urinary analysis. X2End of diagnostic report for accession: [id number] Interpreted: Diego Williamson MDTranscribed: 06/03/2021 04:22 PMSigned: 06/03/2021 04:24 PM Diego Williamson MD [facility] ACC # [id number] BILL # [id number] Name Value Range Interpretation Code Description Data Thania rce(s) Supporting Document(s) ID Date Data Source [id number] 06/07/2021 12:43:35 AM EDT [facility] SPEC EXP DATE 06/06/2021ONV ERT COMMENT TWO UNIT XM ADDED DUE TO PRESENCE OR HISTORY OF ATYPICAL ANTIBODIES.PATIENT ABO/Rh O POSITIVEANTIBODY SCREEN POSITIVETESTING SITE PERFORMED AT [address] [place] [id number] IDENT ANTI-C PRESENT,UNIT NUMBER [id number] COMPONENT TYPE LEUKOPOOR RED CELLS (PT B)UNIT DIVISION 00STATUS OF UNIT REL FROM ALLOCTRANSFUSION STATUS OK TO TRANSFUSECROSSMATCH RESULT COMPATIBLELEVEL 1 PHENOTYPING BILLED FOR SERVICES PERFORMEDUNIT NUMBER [id number] COMPONENT TYPE LEUKOPOOR RED CELLS (PT B)UNIT DIVISION 00STATUS OF UNIT REL FROM ALLOCTRANSFUSION STATUS OK TO TRANSFUSECROSSMATCH RESULT COMPATIBLELEVEL 1 PHENOTYPING BILLED FOR SERVICES PERFORMED Name Value Range Interpretation Code Description Data Thania rce(s) Supporting Document(s) ID Date Data Source [id number] 06/03/2021 11:17:55 AM EDT [facility] Name Value Range Interpretation Code Description Data Thania rce(s) Supporting Document(s) COLOR [facility] APPEARANCE [facility] SPEC GRAV URINE 1.018 (1.003-1.030) [facility] PH URINE 7.0 (5.0-7.5) [facility] LEUK ESTERASE (NEG) [facility] NITRITE URINE (NEG) [facility] PROTEIN URINE 2+ (NEG) A [facility] GLUCOSE URINE (NEG) [facility] KETONE URINE (NEG) [facility] UROBILINOGEN 1.0 mg/dL (0-1.0) [facility] BILIRUBIN URINE (NEG) [facility] BLOOD/HGB URINE (NEG) A [facility] URINE WBC (0-5) [facility] URINE RBC (0-2) [facility] EPITHELIAL CELLS 1+ [HPF] [facility] ID Date Data Source [id number] 06/03/2021 06:31:55 AM EDT [facility] Name Value Range Interpretation Code Description Data Thania rce(s) Supporting Document(s) LDH 130 U/L (84-246) [facility] ID Date Data Source [id number] 06/03/2021 06:31:55 AM EDT [facility] Name Value Range Interpretation Code Description Data Thania rce(s) Supporting Document(s) URIC ACID 5.0 mg/dL (2.6-6.0) [facility] ID Date Data Source [id number] 06/03/2021 06:31:54 AM EDT [facility] Name Value Range Interpretation Code Description Data Thania rce(s) Supporting Document(s) SODIUM 141 mmol/L (136-145) [facility] POTASSIUM 4.5 mmol/L (3.6-5.2) [facility] CHLORIDE 111 mmol/L (100-108) H [facility] CO2 25 mmol/L (22-31) [facility] ANION GAP 5 mmol/L (7-16) L [facility] UREA NITROGEN 8 mg/dL (7-24) [facility] CREATININE 0.68 mg/dL (0.60-1.00) [facility] BUN/CREAT RATIO 11.8 RATIO (10.0-20.0) [facility] GLUCOSE 120 mg/dL (70-99) H [facility] CALCIUM 8.2 mg/dL (8.4-10.2) L [facility] TOTAL PROTEIN 5.8 g/dL (6.4-8.2) L [facility] ALBUMIN 2.4 g/dL (3.5-4.6) L [facility] GLOBULIN 3.4 g/dL (2.7-4.3) [facility] ALB/GLOB RATIO 0.7 RATIO [facility] ALKALINE PHOSPHATASE 70 U/L (45-117) [facility] BILIRUBIN,TOTAL 0.4 mg/dL (0.0-1.0) [facility] [place] [facility] PLEASE NOTE:Total bilirubin results may be falselyelevated in patients taking Eltrombopag. AST (SGOT) 8 U/L (11-39) L [facility] ALT (SGPT) 15 U/L (12-78) [facility] GFR >60 ml/min/1.73m2 (>59) [facility] GFR ( AMER) >60 ml/min/1.73m2 (>59) [facility] GFR INTERPRETATION [facility] --NORMAL KIDNEY FUNCTION OR MILD DISEASE - GFR >OR= 60CHRONIC KIDNEY DISEASE - GFR 15 - 59RENAL FAILURE - GFR <15 Est. GFR calculation based on the MDRDstudy equation, which assumes a steadystate for creatinine. Est. GFR should notbe used for medication dosing. ID Date Data Source [id number] 06/03/2021 06:03:12 AM EDT [facility] Name Value Range Interpretation Code Description Data [facility] Presbyteriane(s) Supporting Document(s) WBC 9.7 10*3/uL (4.1-11.0) [facility] [place] [facility] [place] RBC 3.23 10*6/uL (4.00-5.40) L [facility] [place] HGB 10.6 g/dL (12.0-16.0) L [facility] HCT 31.8 % (36.0-47.0) L [facility] MCV 98.3 fL (80.0-95.0) H [facility] [place] MCH 32.8 pg (27.0-32.0) H [facility] MCHC 33.4 g/dL (32.0-36.0) [facility] RDW 13.3 % (10.5-14.5) [facility] PLT 216 10*3/uL (150-450) [facility] MPV 8.2 fL (7.1-10.7) [facility] ID Date Data Source [id number] 06/03/2021 11:56:40 AM EDT [facility] PATIENT ABO/Rh O POSITIVEBLO OD BANK COMMENT BLOOD TYPE CONFIRMED. Name Value Range Interpretation Code Description Data Thania rce(s) Supporting Document(s) ID Date Data Source [id number] 06/02/2021 03:30:58 PM EDT [facility] [place] Name Value Range Interpretation Code Description Data [facility] Presbyteriane(s) Supporting Document(s) TREPONEMA IGG/IGM @ (NEG) [facility] ID Date Data Source [id number] 06/02/2021 01:25:12 PM EDT [facility] [place] Name Value Range Interpretation Code Description Data Thania rce(s) Supporting Document(s) URIC ACID 5.1 mg/dL (2.6-6.0) [facility] ID Date Data Source [id number] 06/02/2021 01:25:12 PM EDT [facility] [place] [facility] Name Value Range Interpretation Code Description Data Thania rce(s) Supporting Document(s) LDH 168 U/L (84-246) [facility] [place] [facility] ID Date Data Source [id number] 06/02/2021 01:25:12 PM EDT [facility] [place] Name Value Range Interpretation Code Description Data Thania rce(s) Supporting Document(s) SODIUM 138 mmol/L (136-145) [facility] POTASSIUM 3.9 mmol/L (3.6-5.2) [facility] [place] CHLORIDE 107 mmol/L (100-108) [facility] [place] CO2 24 mmol/L (22-31) [facility] ANION GAP 7 mmol/L (7-16) [facility] UREA NITROGEN 6 mg/dL (7-24) L [facility] [place] [facility] CREATININE 0.62 mg/dL (0.60-1.00) [facility] [place] [facility] BUN/CREAT RATIO 9.7 RATIO (10.0-20.0) L [facility] [place] [facility] GLUCOSE 95 mg/dL (70-99) [facility] [place] [facility] CALCIUM 8.5 mg/dL (8.4-10.2) [facility] [place] TOTAL PROTEIN 6.0 g/dL (6.4-8.2) L [facility] [place] [facility] ALBUMIN 2.4 g/dL (3.5-4.6) L [facility] [place] [facility] GLOBULIN 3.6 g/dL (2.7-4.3) [facility] [place] [facility] ALB/GLOB RATIO 0.7 RATIO [facility] [place] [facility] ALKALINE PHOSPHATASE 76 U/L (45-117) [facility] BILIRUBIN,TOTAL 0.4 mg/dL (0.0-1.0) [facility] [place] [facility] PLEASE NOTE:Total bilirubin results may be falselyelevated in patients taking Eltrombopag. AST (SGOT) 11 U/L (11-39) [facility] [place] [facility] ALT (SGPT) 14 U/L (12-78) [facility] [place] [facility] GFR >60 ml/min/1.73m2 (>59) [facility] [place] [facility] GFR ( AMER) >60 ml/min/1.73m2 (>59) [facility] [place] GFR INTERPRETATION [facility] --NORMAL KIDNEY FUNCTION OR MILD DISEASE - GFR >OR= 60CHRONIC KIDNEY DISEASE - GFR 15 - 59RENAL FAILURE - GFR <15 Est. GFR calculation based on the MDRDstudy equation, which assumes a steadystate for creatinine. Est. GFR should notbe used for medication dosing. ID Date Data Source [id number] 06/02/2021 01:23:26 PM EDT [facility] [place] [facility] Name Value Range Interpretation Code Description Data Thania rce(s) Supporting Document(s) PROTEIN,URINE 78 mg/dL [facility] [place] [facility] URINE PROTEIN MAY BE FALSELY ELEVATEDDUR ING TREATMENT WITH AMINOGLYCOSIDESDUE TO METHOD INTERFERENCE. CREATININE,URINE 71.00 mg/dL [facility] URINE TP/CR RATIO 1.10 RATIO (0.00-0.20) H [facility] ID Date Data Source [id number] 06/02/2021 01:06:25 PM EDT [facility] [place] [facility] Name Value Range Interpretation Code Description Data Thania rce(s) Supporting Document(s) WBC 12.3 10*3/uL (4.1-11.0) H [facility] [place] [facility] RBC 3.42 10*6/uL (4.00-5.40) L [facility] [place] [facility] HGB 10.9 g/dL (12.0-16.0) L [facility] [place] [facility] HCT 33.2 % (36.0-47.0) L [facility] [place] [facility] MCV 97.2 fL (80.0-95.0) H [facility] [place] [facility] [facility] MCH 31.9 pg (27.0-32.0) [facility] [place] [facility] MCHC 32.8 g/dL (32.0-36.0) [facility] [place] [facility] RDW 13.1 % (10.5-14.5) [facility] [place] [facility] PLT 254 10*3/uL (150-450) [facility] [place] [facility] MPV 8.3 fL (7.1-10.7) [facility] [place] [facility] ID Date Data Source [id number] 06/02/2021 12:58:38 PM EDT [facility] [place] [facility] Name Value Range Interpretation Code Description Data Thania rce(s) Supporting Document(s) HOLD TUBE PINK [facility] [place] ID Date Data Source [id number] 06/01/2021 05:26:00 PM EDT [facility] Name Value Range Interpretation Code Description Data Thania rce(s) Supporting Document(s) SARS coronavirus 2 RNA [Presence] in Res piratory specimen by DORINDA with probe detection NEGATIVE [facility] This lab was ordered by [facility] a nd reported by [facility]. ID Date Data Source [id number] 05/20/2021 10:26:00 PM EDT [facility] Name Value Range Interpretation Code Description Data Thania rce(s) Supporting Document(s) SARS-CoV-2 (COVID 19) NEGATIVE - SARS-CoV-2 (COVID19) [facility] This lab was ordered by [facility] a nd reported by [facility]. ID Date Data Source [id number] 01/05/2021 09:32:00 PM EDT [facility] Name Value Range Interpretation Code Description Data Thania rce(s) Supporting Document(s) SARS-CoV-2 (COVID 19) NEGATIVE - SARS-CoV-2 (COVID19) [facility] This lab was ordered by [facility] a nd reported by [facility]. ID Date Data Source [id number] 07/30/2020 12:20:00 PM EST [facility] Name Value Range Interpretation Code Description Data Thania rce(s) Supporting Document(s) SARS coronavirus 2 RNA [facility] This lab was ordered by [facility] and reported by [facility]. Procedure Social History Code Duration Value Status Description Data Source(s ) Smoking 06/02/2021 11:56:00 AM EDT Denies Ever Smoked complete d Denies Ever Smoked [facility] Vital Signs ID Date Data Source UNK Name Value Range Interpretation Code Description Data Source(s) Respiratory rate 18 min Normal (applies to non-numeric results) 18 min [facility] Body temperature 37.1 jarrett Normal (applies to non-numeric results) 37.1 jarrett [facility] Body height 0.0 cm Normal (applies to non-numeric resu lts) 0.0 cm [facility] Deprecated Oxygen saturation in Capillary blood by Oximetry 96 % Normal (applies to non-numeric results) 96 % [facility] Body mass index (BMI) [Ratio] 35.58 kg/m2 No rmal (applies to non-numeric results) 35.58 kg/m2 [facility] Body weight Measured 100 kg Normal (applies to non-num avelina results) 100 kg [facility]
[2021-07-26] MEDS ORDERED: LACTATED RINGER'S 1000 ML IV STA (19:57)
[2021-07-26] MEDS ORDERED: LIDOCAINE 1% MDV 20ML VIAL INFIL PRN (20:00)
[2021-07-26] MEDS: LR 1,000 ML IV SCH (20:00)
[2021-07-26] MEDS ORDERED: OXYTOCIN DRIP 30 UNITS in IV 1 EA IV PRN (20:00)
[2021-07-26] MEDS ORDERED: CARBOPROST TROMETHAMINE 250 MCG/ML AMP IM PRN (20:00)
[2021-07-26] MEDS ORDERED: OXYTOCIN DRIP 30 UNITS in IV 1 EA IV SCH (20:00)
[2021-07-26 21:05] VITALS: BP 118/58
[2021-07-26 21:33] LABS: ALT/SGPT 12 U/L (12-78); BILIRUBIN,TOTAL 0.3 MG/DL (0.2-1.0); CREATININE FOR GFR 0.69 MG/DL (0.55-1.30); GLOMERULAR FILTRATION RATE > 60.0 (>60); LDH LACTATE DEHYDROGENASE 145 U/L (84-246); URIC ACID 5.1 MG/DL (2.6-6.0)
[2021-07-26 21:34] LABS: HEMOGLOBIN 10.1 g/dl (12.0-15.5); MEAN CORPUSCULAR HEMOGLOBIN 31.8 pg (27.0-33.0); MEAN CORPUSCULAR HGB CONC 31.6 g/dl (32.0-36.5); MEAN CORPUSCULAR VOLUME 100.6 fl (80.0-96.0); PLATELET COUNT, AUTOMATED 230 10^3/uL (150-450); RED BLOOD COUNT 3.18 10^6/uL (4.00-5.40); WHITE BLOOD COUNT 9.6 10^3/uL (4.0-10.0)
[2021-07-26 22:53] VITALS: BP 117/70
--- NOTE | 2021-07-26 22:53 | HPEPDOC ---
Obstetrical History & Physical General Date of Admission Jul 26, 2021 at 19:48 History of Present Illness 26 yo @ 37W1D by LMP C/W 9WK US admitted for IOL for preeclampsia that has been managed outpatient, she has kept normal labs, except for proteinurea and occasional mild range BP. She denies any vaginal bleeding, abnormal vaginal discharge, leakage of fluids, urinary symptoms, or regular contractions. She denies any new headaches, visual abnormalities, chest pain, worsening dyspnea, facial swelling, or upper extremity swelling. At this time, she continues to report regular movement. Information Provided By: Patient Age: 23 Care Care: Good Care Dating Final EDC: Aug 15, 2021 Final EDC by: LMP LMP: Nov 07, 2020 Estimated Date of Confinement: Aug 15, 2021 EGA at Admission: 3 (37w1d) Antepartum Course Diagnos(e)s 1. Pre eclampsia without severe features- Admission labs and BP are wnl 2. c/sx1, with successful with most recent delivery 3. 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 pyelonephritis IN 1T, on suppressive therapy 5. Obesity, prepreg BMI 31 with excessive weight gain of 41LB 6. Depression on zolof 7. 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 History: No pertinent history Past Medical History Surgical History: section Family History Significant Family History: No pertinent family hx Social History Marital Status: Psychosocial History: Depression * Smoker: non-smoker Alcohol: Denies Abuse Violence Screening Have you been hit/kicked/slapp: No Have you been sexually assault: No Imunizations Tdap status: current Influenza Status: current Allergies Coded Allergies: hydrocodone (Verified Allergy, Intermediate, hives, 12/08/20) prochlorperazine (Verified Adverse Reaction, Intermediate, panic attack, 12/08/20) Medications Scheduled Famotidine (Pepcid) 40 Mg Tablet, 1 TAB PO DAILY 95/Iron Fum/Folic/Dha ( + Dha Combo Pack) 1 Each Combo..pkg, 1 TAB PO DAILY Sertraline Hcl (Zoloft) 100 Mg Tablet, 100 MG PO DAILY Miscellaneous Medications Acetaminophen (Tylenol Extra Strength) 500 Mg Tablet, 500 MG PO Physical Examination Physical Examination GENERAL: Alert and oriented times three. BREAST: . ABDOMEN: Gravid and non-tender to touch. FETUS: Is vertex (VTX) by sterile vaginal examination (SVE), fetus is vertex (VTX) by Jose Juan. HEART RATE: Regular rate and rhythm. LUNGS: Clear to auscultation (CTA). EXTREMITIES: No edema. No clonus. Deep tendon reflexes (DTRs) + . Laboratory Data Urine Culture: No Growth, Urinary Tract Infection Pertinent Laboratoy Data Blood Type: O+ RBC Antibody Screen: Negative HIV: Negative Hepatitis B: Negative Hepatitis C: Unknown Rapid Plasma Reagin: Nonreactive Rubella: Immune Varicella: Immune Chlamydia/Gonorrhea: Negative Group B Streptococcus: Unknown Quad Screen Test: Negative Cystic Fibrosis: Negative Glucose Tolerance Test: 121 Anatomy Ultrasound Placenta Location: Anterior Normal Anatomy: Yes Steroid Therapy Steroid Therapy: No Vaginal Examination Dilation: 1cm Effacement: 30% Station: -3 Cervical Consistency: Firm Cervical Position: Posterior Presentation: Cephalic presentation Assessment Heart Rate (FHR): 135 Variability: Moderate Accelerations: Positive Tocometer Contractions: Yes Frequency: irregular Strength: palpated as mild Multi-drug resistant Organism: No history of MDRO Assessment/Plan Assessment Assessment: 26 yo @ 37W1D by LMP C/W 9WK US admitted for IOL for preeclampsia that has been managed outpatient, she has kept normal labs, except for proteinurea and occasional mild range BP . Pelvis proven to 7lbs 7 oz. Pelvis Adequate for trial of labor. Category I FHRT. APC: 1. Pre eclampsia without severe features- Admission labs and BP are wnl 2. c/sx1, with successful with most recent delivery 3. 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 pyelonephritis IN 1T, on suppressive therapy 5. Obesity, prepreg BMI 31 with excessive weight gain of 41LB 6. Depression on zolof 7. 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 and cross for 2 u SVE: 1/t/h GBS NEG Cephalic by US in clinic EFW 3500 RH POs Placenta anterior , no previa Plan Plan: - Admit to L&D. - Consent signed and given to RN - CBC with type and cross. - EFM - Anesthesia to see - Risks of augmentation with Pitocin and cervical ripening with cook balloon discussed with patient SVE: /-3, DLFB Placed with 80/80. Can combine with pitocin. patient expressed understanding. - GBS neg. -Lactated Ringers (LR): Bolus [500] mL, then at 125 mL/hr. Anticipate normal spontaneous delivery C-S as appropriate. Labor and Delivery Counseling We will deliver your baby through the vagina with possible assistance of forceps or vacuum device if needed for maternal or indications. Forceps and vacuum are devices that can assist with vaginal delivery when normal pushing efforts cannot achieve delivery on their own or when delivery is needed in an emergency for baby's well-being. Medications may be required to induce or augment (help) your labor in order to achieve a vaginal delivery. An episiotomy may be required to help your baby to delivery vaginally. You may also require repair of any lacerations or tears of your vagina or vulva that are caused by delivery. In some cases, emergencies can occur that require an emergency section delivery so quickly that there may not be enough time to stop and complete consent forms for section. Understand that if this occurs, your providers will discuss the need for a section with you before they proceed with surgery. section is the delivery of your baby through an incision in your abdomen. In some situations, section may be safer to mom and baby than continuing labor and is only performed when clinically i ndicated. Risks of vaginal delivery include but are not limited to: Bleeding, infection, injury to the vagina, pelvic structures, injury to baby, damage to the uterus, reactions to anesthesia, uterine rupture, risk of hysterectomy for life threatening bleeding, or . Medications used to induce or augment labor may increase your risk for infection, uterine tachysystole, uterine rupture, heart rate abnormalities, need for emergency delivery or possible hysterectomy, and hemorrhage. Additional risks for use of forceps and vacuum include: increased risk of perineal and vaginal lacerations, risk of urinary or bowel incontinence, increased risk of injury to baby with bruising, scratches, hematomas on the head, or intracranial bleeding. LIZ TANNER MD Jul 26, 2021 20:23
[2021-07-27] VITALS (14 sets, daily range): BP systolic 95–191; BP diastolic 49–91
[2021-07-27] MEDS: LR 1,000 ML IV SCH ×3 (04:00→21:00)
[2021-07-27] MEDS ORDERED: AZITHROMYCIN INJ 500 MG, VIAL MATE ADAPTER 1 EACH in NS 250 ML IV ONE (07:40)
[2021-07-27] MEDS ORDERED: TRANEXAMIC ACID INJection 1,000 MG in NS 100 ML IV PRN (07:40)
[2021-07-27] MEDS ORDERED: ceFAZolin SOD 2 GM in IV 1 EA IV ONE (07:40)
[2021-07-27] MEDS ORDERED: BICITRA 30ML SOLN UDC PO ONE (07:40)
--- NOTE | 2021-07-27 08:18 | IPNPDOC ---
Text Note Date of Service The patient was seen on 07/27/21. NOTE Ashlee is a 26 yo at 37+2 weeks gestation who was admitted for an IOL for mild pre eclampsia. She has a history of one section followed by a successful . Blood pressures and lab work have been stable. She progressed quickly during her induction with a cook balloon and pitocin. She called out feeling pressure and was 9cm dilated, but no presenting part could be palpated. A bedside US confirmed the fetus to be in breech presentation. Zhen hannon on shift and received this report. In the room Ashlee is uncomfortable with her contractions. She denies any headaches, RUQ pain, or visual changes. FHR tracing - Cat I with moderate variability, no decels I recommended stat section for active labor and breech presentation. We discussed all risks of surgery to include, but not limited to, bleeding requiring blood transfusion, risk of infection, risk of injury to bowel, bladder, or other structures which could require additional surgery, risk of injury to baby, and even risk of and/or maternal . Ashlee verb alized understanding of these risks and elected to proceed. Ancef and Azithromycin for infection prophylaxis. 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 A type and cross was ordered on admission (she has a history of hemorrhage) and she has a positive antibody screen (anti e). I spoke with the blood bank and she may also have an additional antibody that they cannot identify. A cross match was sent to [facility] for further identification last night. Exact cross matched blood may not be available for her should she need a transfusion. If transfusion is necessary she would potentially be at risk for a small adverse reaction. Will have all uterotonics and TXA available in the OR. All patient questions answered. Patty Vasquez, I+O VSPatty, I+O Laboratory Tests 07/26/21 20:54 Vital Signs Date Time Temp Pulse Resp B/P (MAP) Pulse Ox O2 Delivery O2 Flow Rate FiO2 07/27/21 05:58 79 122/79 (93) I&O- Last 24 Hours up to 6 AM 07/27/21 06:00 Output Total 550 ml Balance -550 ml WANDA JAFFE DO Jul 27, 2021 08:18
[2021-07-27] MEDS ORDERED: MORPHINE PRES-FREE INJ 10 MG/10 ML VIAL (J2274) As Ordered ONE (08:20)
[2021-07-27] MEDS ORDERED: diphenhydrAMINE 50MG/ML VIAL (J1200) IV PRN (08:30)
[2021-07-27] MEDS ORDERED: NALOXONE INJ 0.4MG/1ML VIAL (J2310 PER 1MG) IV PRN ×2 (08:30)
[2021-07-27] MEDS ORDERED: NALBUPHINE HCL 10 MG/ML AMP (J2300) IV PRN (08:30)
[2021-07-27] MEDS ORDERED: METOCLOPRAMIDE INJ 10MG/2ML VIAL (J2765 PER 1) IV PRN ×2 (08:30→10:15)
[2021-07-27] MEDS ORDERED: ONDANSETRON 4MG/2ML VIAL IV PRN ×3 (08:30→10:15)
[2021-07-27] MEDS ORDERED: OXYTOCIN 30 UNITS IN 0.9% NaCl 500ML IV BAG (J2590) As Ordered ONE ×2 (08:39→09:30)
[2021-07-27] MEDS ORDERED: PHENYLephrine 500MCG 5ML (100MCG/ML) SYRINGE As Ordered ONE (08:45)
[2021-07-27] MEDS ORDERED: KETOROLAC 60MG 2ML VIAL As Ordered ONE (08:45)
[2021-07-27] MEDS ORDERED: ONDANSETRON 4MG/2ML VIAL As Ordered ONE (08:45)
[2021-07-27] MEDS ORDERED: ePHEDrine SULFATE 25 MG/5 ML(5MG/ML) SYRINGE As Ordered ONE (08:45)
[2021-07-27 09:30] LABS: CORD GAS ABE V -5.5; CORD GAS HCO3 V 20.5 MEQ/L; CORD GAS O2 SAT V 68.6 %; CORD GAS PCO2 V 41.7 mmHg; CORD GAS PH V 7.309 UNITS; CORD GAS SBC V 19.3 MEQ/L; CORD GAS TCO2 V 21.8 MEQ/L
[2021-07-27 09:32] LABS: CORD GAS ABE A -3.1; CORD GAS HCO3 A 25.5 MEQ/L; CORD GAS O2 SAT A 40.6 %; CORD GAS PCO2 A 60.8 mmHg; CORD GAS PH A 7.241 UNITS; CORD GAS PO2 A 19.7 mmHg; CORD GAS SBC A 20.5 MEQ/L; CORD GAS TCO2 A 27.4 MEQ/L
[2021-07-27] MEDS ORDERED: oxyCODONE 5MG TAB PO PRN ×2 (09:35)
[2021-07-27] MEDS ORDERED: RHOGAM 300 MCG (1500 IU) INJ (J2790) IM SCH (09:35)
[2021-07-27] MEDS ORDERED: MEASLES,MUMPS,RUBELLA VACCINE INJ (MMR-II) (90707) SC SCH (09:35)
[2021-07-27] MEDS ORDERED: OXYTOCIN DRIP 30 UNITS in IV 1 EA IV SCH (09:35)
[2021-07-27] MEDS ORDERED: PROMETHAZINE 25 MG TAB PO PRN (09:35)
--- NOTE | 2021-07-27 10:01 | ROOPDOC ---
[facility] Report Of Operation Report of Operation DATE OF PROCEDURE: 07/27/21 PREPROCEDURE DIAGNOSES: 1. malpresentation, active labor 2. Mild Pre eclampsia 3. History of section 4. Obesity. POSTPROCEDURE DIAGNOSES: 1. Double footling breech presentation, active labor 2. Mild pre eclampsia 3. History of section 4. Obesity PROCEDURE: Repeat low transverse section SURGEON: Dr. Jung Jaffe CYCLING INSTRUCTOR: Dr. Lucio Unger, whose assistance with exposure, retraction, visualization, and delivery of the was essential to completion of the c ase ANESTHESIA: Spinal. FLUIDS: 1200 mL lactated Ringer's (LR). URINE OUTPUT: 300 mL clear urine via mariano catheter ESTIMATED BLOOD LOSS: 700 mL. COMPLICATIONS: None. ANTIBIOTICS: 2 grams of Ancef and 500 mg of azithromycin. OPERATIVE FINDINGS: in double footling breech presentation. Not descended into the pelvis whatsoever. Low vertical hysterotomy made with extension of the incision further vertically into the contractile portion of the uterus. Clear amniotic fluid. Male fetus delivered without difficulty with Apgars 7/9 and weight of 3360 grams. Normal appearing placenta and ovaries. DETAILED PROCEDURE DESCRIPTION: The risks, benefits, indications, and alternatives of the procedure were reviewed with the patient and informed consent was obtained. The patient was taken to the operating room where spinal anesthesia was obtained without difficulty. The patient was then prepped and draped in the usual sterile fashion in the dorsal supine position with a leftward tilt. A surgical time-out was performed in which the patient's identify and planned procedure were verified with the operative team. A Pfannenstiel skin incision was then made with a scalpel and carried through to the underlying layer of fascia. The fascia was incised in the midline and the incision was extended laterally with Amato scissors. The superior aspect of the fascial incision was grasped with Aleida clamps, elevated, and the underlying rectus muscles were dissected off with a scalpel. Attention was then turned to the inferior aspect of this incision, which in a similar fashion, was grasped, tented up with Aleida clamps, and the rectus muscles were dissected off with Amato scissors. The rectus muscles were then in the midline. The peritoneum was identified and entered digitally. The peritoneal incision was then extended horizontally and superiorly and the bladder was clearly identified. A Mobius self-containing retractor was then inserted into the abdomen as a means for exposure. The vesicouterine peritoneum was identified and entered sharply with a scalpel. This incision was then extended laterally and a bladder flap was created digitally. Next, a low vertical incision was made in the lower uterine segment. The infant was noted to be in double footling breech presentation and had not descended into the pelvis whatsoever. The low vertical incision was then extended further vertically into the contractile portion of the uterus. The amniotic sac was artificially ruptured and this was productive of clear fluid. The infant's feet were grasped and elevated through the hysterotomy. The remainder of the infant was then delivered without difficulty through the hysterotomy using the usual breech maneuvers. The infant's nose and mouth were suctioned with a bulb syringe and the cord was doubly clamped and cut. The infant was then handed off to the awaiting team. The placenta was then removed manually with gentle traction. Cord gases were obtained. The uterus was then exteriorized and cleared of all clots and debris. The vertical uterine incision was then repaired with #0 Monocryl suture in multiple layers. Inspection revealed excellent hemostasis at completion. The posterior cul-de-sac was then irrigated to good effect. The hysterotomy was again inspected and a single figure of eight suture of 0- monocryl was used to achieve hemostasis at the lower uterine segment. The paracolic gutters were then inspected and cleared of all clots and debris. Excellent hemostasis at the hysterotomy was again assured. The uterus was then returned to the abdomen and the Mobius self-containing retractor was removed from the abdomen. The peritoneum was then closed with 3-0 vicryl suture in a running fashion. The fascia was closed with #0 Vicryl suture in a running fashion. The subcutaneous fat was closed with #3-0 Vicryl suture in a running fashion. The skin was closed with #4-0 Monocryl suture in a subcuticular fashion. The incision was then dressed with Steri-Strips and an optifoam dressing was applied. At the completion of the case a bimanual exam was performed which revealed good uterine tone and minimal vaginal bleeding. The patient tolerated the procedure well. Sponge, lap, instrument, and needle counts were correct times three. The patient was taken to the recovery room in stable condition. I would not recommend that Ms. Rubalcavaes labor in any subsequent pregnancies due to the vertical incision made into the contractile portion of her uterus. JUNG JAFFE DO Jul 27, 2021 10:01
[2021-07-27] MEDS ORDERED: LR 1,000 ML IV SCH (10:15)
[2021-07-27] MEDS ORDERED: fentaNYL 100 MCG/2 ML INJECTION (J3010) IV PRN (10:15)
[2021-07-27] MEDS ORDERED: PERCOCET 5MG/325MG TAB PO PRN (10:25)
[2021-07-27] MEDS ORDERED: METOCLOPRAMIDE INJ 10MG/2ML VIAL (J2765 PER 1) As Ordered ONE (10:26)
[2021-07-27] MEDS: SERTRALINE 100 MG TAB PO SCH (11:58)
[2021-07-27] MEDS: KETOROLAC 30 MG/ML 1ML VIAL IV SCH ×2 (15:16→20:12)
[2021-07-27] MEDS ORDERED: LR 1,000 ML IV ONE ×2 (15:45→22:55)
[2021-07-27] MEDS: MECLIZINE 12.5 MG TAB PO PRN (15:54)
[2021-07-27] MEDS: SIMETHICONE 80MG CHEW TAB PO PRN (20:12)
[2021-07-28] MEDS: MECLIZINE 12.5 MG TAB PO PRN
[2021-07-28 02:00] VITALS: BP 113/64
[2021-07-28] MEDS: KETOROLAC 30 MG/ML 1ML VIAL IV SCH (02:14)
[2021-07-28 05:56] VITALS: BP 121/72
--- NOTE | 2021-07-28 06:57 | IPNPDOC ---
Progress Note Date of Service: Jul 28, 2021 Progress Note Ashlee is a 26 yo G3 now P3 who underwent an uncomplicated RLTCS yesterday morning for breech presentation and active labor after being originally admitted for an IOL for pre eclampsia. Yesterday she had some nausea and vomiting but this morning this has resolved. She reports feeling well today. She has been ambulatory and is voiding on her own. Pain is well controlled. Lochia is minimal. Vitals - VSS, afebrile, normotensive, nontachycardic General - AAOX3, sitting up in bed, NAD Abdomen - Fundus firm at U-2. No fundal tenderness. optifoam dressing in place with minimal strikethrough. Steri strips in place. Minimal tenderness. Extremities - trace edema UO - appropriate Labs: Pre op H/H 10.1/32.0 ---> pending AM CBC Ashlee is doing well and is making an appropriate postoperative / recovery. Plan for discharge tomorrow if she meets all criteria. Andreas VS, I&O, 24H, Ptaty Vital Signs/I&O Vital Signs Date Time Temp Pulse Resp B/P (MAP) Pulse Ox O2 Delivery O2 Flow Rate FiO2 07/28/21 05:56 97.6 77 16 121/72 (88) 98 Room Air I&O- Last 24 Hours up to 6 AM 07/28/21 06:00 Intake Total 4190 ml Output Total 2725 ml Balance 1465 ml Laboratory Data 24H LABS Laboratory Tests 2 07/27/21 09:02: Cord Arterial Blood pH 7.241, Cord Arterial Blood PCO2 60.8, Cord Arterial Blood PO2 19.7, Cord Arterial Blood HCO3 25.5, Cord Arterial Blood Total CO2 27.4, Cord Arterial Blood Base Excess -3.1, Cord Arterial Base Excess (Standard 20.5, Cord Arterial Bld Oxygen Saturation 40.6, Cord Venous Blood pH 7.309, Cord Venous Blood PCO2 41.7, Cord Venous Blood PO2 29.0, Cord Venous Blood HCO3 20.5, Cord Venous Blood Total CO2 21.8, Cord Venous Base Excess (Actual) -5.5, Cord Venous Base Excess (Standard) 19.3, Cord Venous Blood Oxygen Saturation 68.6 WANDA JAFFE DO Jul 28, 2021 06:57
[2021-07-28 07:56] LABS: HEMATOCRIT 24.9 % (36.0-47.0); MEAN CORPUSCULAR HEMOGLOBIN 31.9 pg (27.0-33.0); MEAN CORPUSCULAR HGB CONC 31.7 g/dl (32.0-36.5); MEAN CORPUSCULAR VOLUME 100.4 fl (80.0-96.0); PLATELET COUNT, AUTOMATED 156 10^3/uL (150-450); RED BLOOD COUNT 2.48 10^6/uL (4.00-5.40); WHITE BLOOD COUNT 9.8 10^3/uL (4.0-10.0)
[2021-07-28 08:04] LABS: HEMOGLOBIN 7.9 g/dl (12.0-15.5)
[2021-07-28] MEDS: SERTRALINE 100 MG TAB PO SCH (08:53)
[2021-07-28] MEDS: SIMETHICONE 80MG CHEW TAB PO PRN ×2 (08:53→17:54)
[2021-07-28] MEDS: PRENATAL VITAMINS CHEWABLE TABLET PO SCH (08:53)
[2021-07-28] MEDS: ACETAMINOPHEN TAB 650MG DOSE (2X325MG) PO PRN ×2 (08:54→17:51)
[2021-07-28 10:00] VITALS: BP 139/77
[2021-07-28] MEDS: IBUPROFEN 800 MG TAB PO SCH ×2 (11:32→18:52)
--- NOTE | 2021-07-28 11:50 | IPN ---
PROGRESS NOTE DATE: 07/28/2021 This patient and her requested circumcision of their male . After discussing risks and benefits of circumcision, the medical, the non-medical indications, the penile block and aftercare, expressed understanding of penile block, aftercare and bleeding, signed the consent form. All questions were answered, 20-minute discussion. We await clearance by the sales representative gas service.
[2021-07-28 14:00] VITALS: BP 124/63
[2021-07-28 16:57] VITALS: BP 119/72
[2021-07-28 21:57] VITALS: BP 123/69
[2021-07-29] MEDS: IBUPROFEN 800 MG TAB PO SCH ×2 (02:02→10:42)
[2021-07-29] MEDS: SIMETHICONE 80MG CHEW TAB PO PRN ×2 (02:04→10:42)
[2021-07-29 02:05] VITALS: BP 131/80
[2021-07-29 05:51] VITALS: BP 121/71
--- NOTE | 2021-07-29 07:29 | OBDS ---
[facility] Obstetrical Discharge Sum. Obstetrical Discharge Summary Date: Jul 29, 2021 VDRL: ABO Blood Group (0) Rh: Positive Rubella: Immune Sex: Male A/P, Post Course List any complications PREPROCEDURE DIAGNOSES: 1. malpresentation, active labor 2. Mild Pre eclampsia 3. History of section 4. Obesity. POSTPROCEDURE DIAGNOSES: 1. Double footling breech presentation, active labor 2. Mild pre eclampsia 3. History of section 4. Obesity PROCEDURE: Repeat low transverse section SURGEON: Dr. Jung Johns BOOKKEEPING SERVICE SALES AGENT: Dr. Lucio Unger, whose assistance with exposure, retraction, visualization, and delivery of the was essential to completion of the case ANESTHESIA: Spinal. FLUIDS: 1200 mL lactated Ringer's (LR). URINE OUTPUT: 300 mL clear urine via mariano catheter ESTIMATED BLOOD LOSS: 700 mL. COMPLICATIONS: None. ANTIBIOTICS: 2 grams of Ancef and 500 mg of azithromycin. OPERATIVE FINDINGS: Infant in double footling breech presentation. Not descended into the pelvis whatsoever. Low vertical hysterotomy made with extens ion of the incision further vertically into the contractile portion of the uterus. Clear amniotic fluid. Male fetus delivered without difficulty with Apgars 7/9 and weight of 3360 grams. Normal appearing placenta and ovaries. Condition at Discharge: stable Discharge Instructions: Home Activity: pelvic rest Diet: reg Medications: [place] Follow-up: 2 and 6 weeks LIZ TANNER MD Jul 29, 2021 06:10
[2021-07-29] MEDS ORDERED: ACET1TAB55 PO (07:35)
[2021-07-29] MEDS ORDERED: IBUP80TA PO (07:35)
[2021-07-29] MEDS ORDERED: OXYC-517 PO (07:35)
[2021-07-29] MEDS: SERTRALINE 100 MG TAB PO SCH (08:37)
[2021-07-29] MEDS: PRENATAL VITAMINS CHEWABLE TABLET PO SCH (08:37)
[2021-07-29] MEDS ORDERED: INFLUENZA QUADRIVALENT PF VACCINE 0.5ML SYRINGE IM ONE (13:00)
== END 2021-07-29 14:00 | disposition home or self-care (01) | DRG 773 ==
LOC: M LDI 19:48 → M OBS 07-27 12:56
PROVIDERS: ADMIT Obstetrics & Gynecology; ATTEND Obstetrics & Gynecology
PROC: 3E033VJ Introduction of Other Hormone into Peripheral Vein, Percutaneous Approach (ICD-10-PCS; 2021-07-26)
PROC: 10D00Z1 Extraction of Products of Conception, Low, Open Approach (ICD-10-PCS; principal; 2021-07-27 09:43)
DX: O14.04 Mild to moderate pre-eclampsia, complicating childbirth (principal); Z3A.37 37 weeks gestation of pregnancy; O34.211 Maternal care for low transverse scar from previous cesarean delivery; O99.214 Obesity complicating childbirth; E66.9 Obesity, unspecified; O99.344 Other mental disorders complicating childbirth; F32.A Depression, unspecified; O32.8XX0 Maternal care for other malpresentation of fetus, not applicable or unspecified; O66.41 Failed attempted vaginal birth after previous cesarean delivery; Z37.0 Single live birth

== ENCOUNTER 2021-11-25 14:25 | Emergency (ER) | payer OTHER ==
[~2021-11-25] VITALS: Ht 167.6 cm; Wt 95.5 kg
[2021-11-25 14:25] VITALS: BP 124/94
[~2021-11-25 14:25] MED LIST changes: +ACET1TAB55 PO; +OXYC-517 PO
[2021-11-25] MEDS ORDERED: MECL-86 PO (14:49)
== END 2021-11-25 15:15 | disposition left against medical advice (07) ==
LOC: M ED 14:25
DX: Z53.21 Procedure and treatment not carried out due to patient leaving prior to being seen by health care provider (principal)

== ENCOUNTER 2022-05-30 09:05 | Emergency (ER) | payer OTHER ==
[~2022-05-30] VITALS: Ht 167.6 cm; Wt 92.3 kg
[~2022-05-30 09:05] MED LIST changes: +MECL-86 PO
[2022-05-30] MEDS ORDERED: BUPR150T12 (09:16)
[2022-05-30] MEDS ORDERED: ONDANSETRON 4MG 2ML VIAL IV ONE (09:25)
[2022-05-30] MEDS ORDERED: NS 1,000 ML IV ONE (09:25)
[2022-05-30 09:44] LABS: BASO # 0.1 10^3/uL (0.0-0.2); BASO % 0.8 % (0.0-1.0); EOS # 0.2 10^3/uL (0.0-0.5); EOS % 1.9 % (0.0-3.0); HEMATOCRIT 41.3 % (36.0-47.0); HEMOGLOBIN 13.3 g/dl (12.0-15.5); LYMPH # 2.5 10^3/uL (1.5-5.0); LYMPH % 31.7 % (24.0-44.0); MEAN CORPUSCULAR HEMOGLOBIN 30.8 pg (27.0-33.0); MEAN CORPUSCULAR HGB CONC 32.2 g/dl (32.0-36.5); MEAN CORPUSCULAR VOLUME 95.6 fl (80.0-96.0); MONO # 0.5 10^3/uL (0.0-0.8); MONO % 6.8 % (2.0-8.0); NEUTROPHILS # 4.6 10^3/uL (1.5-8.5); NEUTROPHILS % 58.5 % (36.0-66.0); PLATELET COUNT, AUTOMATED 287 10^3/uL (150-450); RED BLOOD COUNT 4.32 10^6/uL (4.00-5.40); WHITE BLOOD COUNT 7.8 10^3/uL (4.0-10.0)
[2022-05-30] MEDS ORDERED: ACETAMINOPHEN 500 MG TAB PO ONE (10:05)
[2022-05-30 10:27] LABS: HCG, SERUM QUALITATIVE NEGATIVE (NEGATIVE)
[2022-05-30 10:34] LABS: ALBUMIN 4.2 GM/DL (3.2-5.2); ALT/SGPT 23 U/L (12-78); BILIRUBIN,DIRECT 0.2 MG/DL (0.0-0.2); BILIRUBIN,TOTAL 0.4 MG/DL (0.2-1.0); BLOOD UREA NITROGEN 15 MG/DL (7-18); CALCIUM LEVEL 9.7 MG/DL (8.5-10.1); CARBON DIOXIDE LEVEL 30 MEQ/L (21-32); CHLORIDE LEVEL 109 MEQ/L (98-107); CREATININE FOR GFR 0.98 MG/DL (0.55-1.30); GLOMERULAR FILTRATION RATE > 60.0 (>60); GLUCOSE, FASTING 101 MG/DL (70-100); LIPASE 176 U/L (73-393); POTASSIUM SERUM 4.1 MEQ/L (3.5-5.1); SODIUM LEVEL 142 MEQ/L (136-145); TOTAL PROTEIN 7.4 GM/DL (6.4-8.2)
[2022-05-30] MEDS ORDERED: ISOVUE-370 76% 100ML VIAL As Ordered ONE (10:40)
[2022-05-30] MEDS ORDERED: KETOROLAC 30 MG/ML 1ML VIAL IV ONE (11:15)
[2022-05-30] MEDS ORDERED: ONDA4TAB6 PO (11:46)
[2022-05-30 12:26] VITALS: BP 113/70
== END 2022-05-30 12:30 | disposition home or self-care (01) ==
LOC: M ED 09:05
DX: R10.11 Right upper quadrant pain (principal); R11.10 Vomiting, unspecified; Z88.5 Allergy status to narcotic agent; Z88.8 Allergy status to other drugs, medicaments and biological substances
CPT/HCPCS: 74177; 76705; 80048; 80076; 83690; 84703; 85025; 96361; 96374; 96375; 99284; J1885; J2405; Q9967

== ENCOUNTER → 2022-06-14 | Outpatient (REF) ==
[~2022-06-14] MED LIST changes: +BUPR150T12; +NITR-67 PO; +TRAM50TA2 PO
== END ==
LOC: M LABSMTC 09:06
PROVIDERS: ATTEND Family Medicine
DX: Z11.52 Encounter for screening for COVID-19 (principal)

== ENCOUNTER 2022-06-15 00:39 | Emergency (ER) | payer OTHER ==
[~2022-06-15] VITALS: Ht 167.6 cm; Wt 92.8 kg
[~2022-06-15 00:39] MED LIST changes: -NITR-67 PO; -TRAM50TA2 PO
[2022-06-15] MEDS ORDERED: KETOROLAC 30 MG/ML 1ML VIAL IV ONE (01:30)
[2022-06-15] MEDS ORDERED: ONDANSETRON 4MG 2ML VIAL IV ONE (01:30)
[2022-06-15 01:35] LABS: BASO % 0.2 % (0.0-1.0); EOS # 0.2 10^3/uL (0.0-0.5); EOS % 2.6 % (0.0-3.0); HEMATOCRIT 37.4 % (36.0-47.0); HEMOGLOBIN 12.4 g/dl (12.0-15.5); LYMPH # 1.8 10^3/uL (1.5-5.0); LYMPH % 20.7 % (24.0-44.0); MEAN CORPUSCULAR HGB CONC 33.2 g/dl (32.0-36.5); MEAN CORPUSCULAR VOLUME 93.5 fl (80.0-96.0); MONO # 0.6 10^3/uL (0.0-0.8); MONO % 6.5 % (2.0-8.0); NEUTROPHILS # 5.9 10^3/uL (1.5-8.5); NEUTROPHILS % 69.8 % (36.0-66.0); PLATELET COUNT, AUTOMATED 253 10^3/uL (150-450); WHITE BLOOD COUNT 8.5 10^3/uL (4.0-10.0)
[2022-06-15 01:45] LABS: INR 1.05; PROTHROMBIN TIME 13.9 SECONDS (12.5-14.5)
[2022-06-15 02:02] LABS: HCG, SERUM QUALITATIVE NEGATIVE (NEGATIVE)
[2022-06-15 02:10] LABS: ALBUMIN 3.8 GM/DL (3.2-5.2); ALT/SGPT 18 U/L (12-78); AMYLASE 48 U/L (25-115); BILIRUBIN,DIRECT 0.2 MG/DL (0.0-0.2); BILIRUBIN,TOTAL 0.8 MG/DL (0.2-1.0); BLOOD UREA NITROGEN 16 MG/DL (7-18); CALCIUM LEVEL 9.1 MG/DL (8.5-10.1); CARBON DIOXIDE LEVEL 25 MEQ/L (21-32); CHLORIDE LEVEL 108 MEQ/L (98-107); CREATININE FOR GFR 0.97 MG/DL (0.55-1.30); GLOMERULAR FILTRATION RATE > 60.0 (>60); GLUCOSE, FASTING 109 MG/DL (70-100); LIPASE 169 U/L (73-393); SODIUM LEVEL 139 MEQ/L (136-145); TOTAL PROTEIN 7.1 GM/DL (6.4-8.2)
[2022-06-15] MEDS ORDERED: MORPHINE 2 MG/ML 1ML VIAL IV ONE (03:20)
[2022-06-15] MEDS ORDERED: ISOVUE-370 76% 100ML VIAL As Ordered ONE (03:26)
[2022-06-15] MEDS ORDERED: TRAM50TA2 PO (04:22)
[2022-06-15] MEDS ORDERED: ONDA4TAB6 PO (04:22)
[2022-06-15] MEDS ORDERED: NITR-67 PO (04:28)
[2022-06-15] MEDS ORDERED: NITROFURANTOIN (MACROBID) 100 MG CAP PO ONE (04:35)
[2022-06-15 05:00] VITALS: BP 102/55
== END 2022-06-15 05:13 | disposition home or self-care (01) ==
LOC: M ED 00:39
DX: K80.50 Calculus of bile duct without cholangitis or cholecystitis without obstruction (principal); N39.0 Urinary tract infection, site not specified; K76.0 Fatty (change of) liver, not elsewhere classified; Z79.899 Other long term (current) drug therapy; Z88.5 Allergy status to narcotic agent; Z88.8 Allergy status to other drugs, medicaments and biological substances
CPT/HCPCS: 74177; 76705; 80048; 80076; 81000; 81015; 82150; 83690; 84703; 85025; 85610; 87088; 87186; 93041; 96374; 96375; 99284; J1885; J2270; J2405; Q9967

== ENCOUNTER 2022-08-28 21:24 | Emergency (ER) | payer OTHER ==
[~2022-08-28] VITALS: Ht 165.1 cm; Wt 88.2 kg
[~2022-08-28 21:24] MED LIST changes: +NITR-67 PO; +TRAM50TA2 PO
[2022-08-28] MEDS ORDERED: NS 1,000 ML IV ONE (21:50)
[2022-08-28] MEDS ORDERED: fentaNYL 100 MCG/2 ML INJECTION IV ONE (22:00)
[2022-08-28] MEDS ORDERED: ONDANSETRON 4MG 2ML VIAL IV ONE (22:00)
[2022-08-28 22:38] LABS: BASO % 0.2 % (0.0-1.0); EOS % 0.7 % (0.0-3.0); HEMATOCRIT 44.7 % (36.0-47.0); HEMOGLOBIN 14.7 g/dl (12.0-15.5); LYMPH # 0.4 10^3/uL (1.5-5.0); LYMPH % 7.4 % (24.0-44.0); MEAN CORPUSCULAR HEMOGLOBIN 30.6 pg (27.0-33.0); MEAN CORPUSCULAR HGB CONC 32.9 g/dl (32.0-36.5); MEAN CORPUSCULAR VOLUME 92.9 fl (80.0-96.0); MONO # 0.3 10^3/uL (0.0-0.8); MONO % 4.2 % (2.0-8.0); NEUTROPHILS # 5.2 10^3/uL (1.5-8.5); NEUTROPHILS % 87.2 % (36.0-66.0); PLATELET COUNT, AUTOMATED 201 10^3/uL (150-450); RED BLOOD COUNT 4.81 10^6/uL (4.00-5.40); WHITE BLOOD COUNT 5.9 10^3/uL (4.0-10.0)
[2022-08-28 23:07] LABS: RSV AMPLIFICATION NEGATIVE (NEGATIVE)
[2022-08-28 23:08] LABS: ALBUMIN 3.7 G/DL (3.2-5.2); BILIRUBIN,DIRECT 0.4 MG/DL (<0.4); BILIRUBIN,TOTAL 1.2 MG/DL (0.3-1.2); TOTAL PROTEIN 6.3 G/DL (5.7-8.2)
[2022-08-28] MEDS ORDERED: METOCLOPRAMIDE INJ 10MG/2ML VIAL IV ONE (23:50)
[2022-08-29 01:15] VITALS: BP 109/67
[2022-08-29] MEDS ORDERED: CEPH500C PO (01:23)
[2022-08-29] MEDS ORDERED: ONDA4TAB6 PO (01:23)
[2022-08-29] MEDS ORDERED: CEPHALEXIN 500 MG CAP PO ONE (01:25)
== END 2022-08-29 01:50 | disposition home or self-care (01) ==
LOC: M ED 21:24
DX: N10 Acute pyelonephritis (principal); Z87.891 Personal history of nicotine dependence; Z90.5 Acquired absence of kidney; Z79.899 Other long term (current) drug therapy; Z88.5 Allergy status to narcotic agent; Z88.8 Allergy status to other drugs, medicaments and biological substances
CPT/HCPCS: 74176; 80047; 80076; 81000; 81015; 83690; 84702; 85025; 87086; 87631; 96374; 96375; 99284; J2405

== ENCOUNTER 2023-03-10 21:55 | Emergency (ER) | payer OTHER ==
[2023-03-10 22:08] VITALS: TEMP 97.5
[2023-03-10 22:39] LABS: BASO # 0.1 10^3/uL (0.0-0.2); BASO % 0.8 % (0.0-1.0); EOS # 0.1 10^3/uL (0.0-0.5); HEMATOCRIT 39.5 % (36.0-47.0); HEMOGLOBIN 13.1 g/dl (12.0-15.5); LYMPH # 2.4 10^3/uL (1.5-5.0); LYMPH % 27.2 % (24.0-44.0); MEAN CORPUSCULAR HGB CONC 33.2 g/dl (32.0-36.5); MEAN CORPUSCULAR VOLUME 93.4 fl (80.0-96.0); MONO # 0.4 10^3/uL (0.0-0.8); MONO % 5.1 % (2.0-8.0); NEUTROPHILS # 5.7 10^3/uL (1.5-8.5); NEUTROPHILS % 65.7 % (36.0-66.0); PLATELET COUNT, AUTOMATED 282 10^3/uL (150-450); RED BLOOD COUNT 4.23 10^6/uL (4.00-5.40); WHITE BLOOD COUNT 8.6 10^3/uL (4.0-10.0)
[2023-03-10 23:07] LABS: CK-MB VALUE MASS < 1.0 NG/ML (<3.6)
[2023-03-10 23:09] LABS: ALBUMIN 4.3 G/DL (3.2-5.2); ALKALINE PHOSPHATASE 91 U/L (46-116); ALT/SGPT 11 U/L (7.0-40); AST/SGOT < 8 U/L (<34); BILIRUBIN,DIRECT 0.3 MG/DL (<0.4); BLOOD UREA NITROGEN 16 MG/DL (9-23); CALCIUM LEVEL 9.3 MG/DL (8.5-10.1); CARBON DIOXIDE LEVEL 25 MMOL/L (20-31); CHLORIDE LEVEL 106 MMOL/L (98-107); CPK CREATINE PHOSPHOKINASE 73 U/L (34-145); CREATININE FOR GFR 1.05 MG/DL (0.55-1.30); GLOMERULAR FILTRATION RATE > 60.0 (>60); GLUCOSE, FASTING 105 MG/DL (60-100); MB/CK RELATIVE INDEX 1.36 (< OR =4); POTASSIUM SERUM 4.2 MMOL/L (3.5-5.1); SODIUM LEVEL 139 MMOL/L (136-145)
[2023-03-10] MEDS ORDERED: ONDANSETRON 4MG 2ML VIAL IV ONE (23:10)
[2023-03-10 23:11] LABS: THYROID STIMULATING HORMONE 1.543 uIU/ML (0.55-4.78)
[2023-03-10 23:39] LABS: PROLACTIN 6.71 NG/ML
[2023-03-11 00:01] LABS: HCG, SERUM QUALITATIVE NEGATIVE (NEGATIVE)
[2023-03-11] MEDS ORDERED: HOLTER MONITOR XX (00:58)
[2023-03-11 01:00] VITALS: BP 160/85; O2SAT 98
== END 2023-03-11 01:37 | disposition home or self-care (01) ==
LOC: M ED 21:55
DX: I47.9 Paroxysmal tachycardia, unspecified (principal); F41.9 Anxiety disorder, unspecified; Z88.8 Allergy status to other drugs, medicaments and biological substances; Z88.5 Allergy status to narcotic agent; Z79.899 Other long term (current) drug therapy
CPT/HCPCS: 70450; 80048; 80076; 82550; 82553; 84146; 84443; 84484; 84703; 85025; 93005; 93041; 94760; 96374; 99285; J2405

== ENCOUNTER 2023-05-17 21:41 | Emergency (ER) | payer OTHER ==
[~2023-05-17] VITALS: Ht 167.6 cm; Wt 98.0 kg
[~2023-05-17 21:41] MED LIST changes: +HOLTER MONITOR XX
[2023-05-17 22:29] VITALS: TEMP 97.4
[2023-05-17 22:29] LABS: HEMOGLOBIN 9.4 g/dl (12.0-15.5); MEAN CORPUSCULAR HEMOGLOBIN 32.3 pg (27.0-33.0); MEAN CORPUSCULAR HGB CONC 32.4 g/dl (32.0-36.5); MEAN CORPUSCULAR VOLUME 99.7 fl (80.0-96.0); PLATELET COUNT, AUTOMATED 271 10^3/uL (150-450); RED BLOOD COUNT 2.91 10^6/uL (4.00-5.40); WHITE BLOOD COUNT 7.1 10^3/uL (4.0-10.0)
[2023-05-17] MEDS: ONDANSETRON 4MG 2ML VIAL IV ONE (22:29)
[2023-05-17 22:41] LABS: PROTHROMBIN TIME 12.9 SECONDS (12.5-14.5)
[2023-05-17 22:42] LABS: PARTIAL THROMBOPLASTIN TIME 26.6 SECONDS (24.8-34.2)
[2023-05-17 22:45] LABS: BASOPHILS 1 % (0-1); EOSINOPHILS 2 % (0-3); LYMPHOCYTES 33 % (16-44); MONOCYTES 1 % (0-5); NEUTROPHILS 63 % (28-66); PLATELET ESTIMATE NORMAL (NORMAL)
[2023-05-17 22:57] LABS: LIPASE 53 U/L (12-53)
[2023-05-17 22:58] LABS: CK-MB VALUE MASS < 1.0 NG/ML (<3.6)
[2023-05-17 23:00] LABS: ALBUMIN 4.1 G/DL (3.2-5.2); ALKALINE PHOSPHATASE 73 U/L (46-116); ALT/SGPT 19 U/L (7.0-40); AST/SGOT 16 U/L (<34); BILIRUBIN,DIRECT 0.2 MG/DL (<0.4); BILIRUBIN,TOTAL 0.4 MG/DL (0.3-1.2); BLOOD UREA NITROGEN 19 MG/DL (9-23); CALCIUM LEVEL 8.8 MG/DL (8.5-10.1); CARBON DIOXIDE LEVEL 27 MMOL/L (20-31); CHLORIDE LEVEL 109 MMOL/L (98-107); CREATININE FOR GFR 0.89 MG/DL (0.55-1.30); GLOMERULAR FILTRATION RATE > 60.0 (>60); GLUCOSE, FASTING 86 MG/DL (60-100); POTASSIUM SERUM 4.1 MMOL/L (3.5-5.1); SODIUM LEVEL 144 MMOL/L (136-145); TOTAL PROTEIN 6.8 G/DL (5.7-8.2)
[2023-05-17 23:04] LABS: CPK CREATINE PHOSPHOKINASE 63 U/L (34-145); MB/CK RELATIVE INDEX 1.58 (< OR =4)
[2023-05-17 23:05] LABS: HCG, SERUM QUALITATIVE NEGATIVE (NEGATIVE)
[2023-05-17] MEDS ORDERED: ISOVUE-370 76% 100ML VIAL As Ordered ONE (23:26)
[2023-05-17 23:56] LABS: CK-MB VALUE MASS < 1.0 NG/ML (<3.6)
[2023-05-18] VITALS: BP 112/74
[2023-05-18 00:01] LABS: CPK CREATINE PHOSPHOKINASE 57 U/L (34-145); MB/CK RELATIVE INDEX 1.75 (< OR =4)
[2023-05-18 00:16] VITALS: O2SAT 99
== END 2023-05-18 01:00 | disposition home or self-care (01) ==
LOC: M ED 21:41
DX: R10.9 Unspecified abdominal pain (principal); D64.9 Anemia, unspecified; I77.0 Arteriovenous fistula, acquired; F32.A Depression, unspecified; Z88.8 Allergy status to other drugs, medicaments and biological substances; Z88.5 Allergy status to narcotic agent; Z79.899 Other long term (current) drug therapy
CPT/HCPCS: 71275; 74177; 80048; 80076; 81001; 82550; 82553; 83690; 84484; 84703; 85025; 85610; 85730; 87486; 87581; 87633; 87798; 93005; 93041; 96374; 99285; J2405; Q9967

== ENCOUNTER 2023-05-17 21:43 | Emergency (ER) | payer OTHER | END 2023-05-17 21:53 | disposition home or self-care (01) | LOC: CANPREER → M ED 21:43 | DX: R10.9 Unspecified abdominal pain (principal) ==

== ENCOUNTER → 2023-08-07 | Outpatient (CLI) | payer OTHER ==
[~2023-08-07] MED LIST changes: +ISOVUE-370 76% 100ML VIAL ONE
== END ==
LOC: M PLAIMG 08:26
PROVIDERS: ATTEND Physician Assistant
DX: R93.422 Abnormal radiologic findings on diagnostic imaging of left kidney (principal)

== ENCOUNTER → 2023-08-18 | Outpatient (CLI) | payer OTHER ==
[~2023-08-18] MED LIST changes: -ISOVUE-370 76% 100ML VIAL ONE
== END ==
LOC: M RAD 06:59
PROVIDERS: ATTEND Physician Assistant
DX: R93.422 Abnormal radiologic findings on diagnostic imaging of left kidney (principal)

== ENCOUNTER → 2023-09-04 | Outpatient (REF) | payer OTHER ==
[2023-09-04 13:47] LABS: APPEARANCE, URINE HAZY (CLEAR); BACTERIA, URINE AUTO 1+ (NEGATIVE); BILIRUBIN, URINE AUTO NEGATIVE (NEGATIVE); BLOOD, URINE BLOOD NEGATIVE (NEGATIVE); COLOR, URINE YELLOW (YELLOW); GLUCOSE, URINE (UA) AUTO NEGATIVE (NEGATIVE); KETONE, URINE AUTO NEGATIVE (NEGATIVE); LEUKOCYTE ESTERASE, URINE AUTO 1+ (NEGATIVE); MUCUS, URINE SMALL (NEGATIVE); NITRITE, URINE AUTO NEGATIVE (NEGATIVE); PROTEIN, URINE AUTO 2+ mg/dL (NEGATIVE); RBC, URINE AUTO 2 /HPF (0-3); SPECIFIC GRAVITY URINE AUTO 1.016 (1.002-1.035); SQUAMOUS EPITHELIAL CELL UR AU 8 /HPF (0-6); WBC, URINE AUTO 6 /HPF (0-3)
== END ==
LOC: M SMT 13:14
PROVIDERS: ATTEND Physician Assistant
DX: R31.21 Asymptomatic microscopic hematuria (principal)

== ENCOUNTER 2025-06-13 20:21 | Emergency (ER) | payer OTHER ==
[~2025-06-13] VITALS: Ht 167.6 cm; Wt 87.3 kg
[~2025-06-13 20:21] MED LIST changes: -CYCL5TAB PO; +CYCL5TAB4 PO; +NITR100C3 PO; -NITR1CAP11 PO; +ONDA-282 PO; -ONDA4TAB6 PO
[2025-06-13 20:58] LABS: BASO # 0.1 10^3/uL (0.0-0.2); BASO % 0.7 % (0.0-1.0); EOS # 0.2 10^3/uL (0.0-0.5); EOS % 2.3 % (0.0-3.0); LYMPH # 2.5 10^3/uL (1.5-5.0); LYMPH % 29.1 % (24.0-44.0); MONO # 0.5 10^3/uL (0.0-0.8); MONO % 5.6 % (2.0-8.0); NEUTROPHILS # 5.2 10^3/uL (1.5-8.5); NEUTROPHILS % 62.1 % (36.0-66.0); PLATELET COUNT, AUTOMATED 306 10^3/uL (150-450)
[2025-06-13 21:22] LABS: HCG, SERUM QUANTITATIVE < 2.6 MIU/ML (<4.2)
[2025-06-13 21:25] LABS: CALCIUM LEVEL 9.4 MG/DL (8.5-10.1); CARBON DIOXIDE LEVEL 26 MMOL/L (20-31); CHLORIDE LEVEL 107 MMOL/L (98-107); CREATININE FOR GFR 1.00 MG/DL (0.55-1.30); GLOMERULAR FILTRATION RATE 76.8 (>60); POTASSIUM SERUM 4.9 MMOL/L (3.5-5.1); SODIUM LEVEL 144 MMOL/L (136-145)
[2025-06-13 23:58] VITALS: BP 114/70; TEMP 97.5; O2SAT 100
== END 2025-06-14 00:19 | disposition left against medical advice (07) ==
LOC: M ED 20:21
DX: Z53.21 Procedure and treatment not carried out due to patient leaving prior to being seen by health care provider (principal)